=== PATIENT | female | born 1940 | race Caucasian/White ===

== ENCOUNTER 2016-08-30 10:20 | Emergency (ER) | payer OTHER ==
[~2016-08-30] VITALS: Ht 165.1 cm; Wt 63.6 kg
[~2016-08-30 10:20] MED LIST: ATOR40TA PO; AZIT250T43 PO; CALCTAB11 PO; DICL1GEL TOP; HYDR-3580 PO; LACT PO; LORTA5 PO; MAGN250T5 PO; MUCI600T PO; OMEP20CA5 PO; Z.0.COMMODE-3:1; Z.0.WALKERFRONT; ZOFR4TAB3 SL
[2016-08-30 10:24] VITALS: BP 89/58; PULSE 102; RESP 20; TEMP 98; O2SAT 97
--- NOTE | 2016-08-30 10:57 | PD ---
HPI Chief Complaint: Pain: Acute or Chronic Time Seen by Provider: 10:36 Travel History International Travel<30 days: No Contact w/Intl Traveler<30days: No Traveled to known affect area: No History of Present Illness HPI The patient was seen and examined in the presence of the nurse. Patient complains of pain in her right buttock that radiates down the back of her right leg to the level of the ankle. Has been diagnosed with sciatica. Duration is 2 -3 weeks. She just had a lumbar spine MRI which revealed some degenerative change but nothing surgical. She saw her orthopedist for this and was referred to physical therapy. Physical therapist thought that she should come to the emergency room. She complained of feeling dizzy and lightheaded. Severity is moderate. Pain is worse with movement or trying to walk. No alleviating factors. PFSH Past Medical History Arthritis: Yes (hands) Asthma: No Heart Rhythm Problems: No Cancer: Yes (rectal cancer) Cardiovascular Problems: No High Cholesterol: Yes Chemotherapy: Yes (R/T RECTAL CANCER ) Chest Pain: No Congestive Heart Failure: No COPD: No Cerebrovascular Accident: No Diabetes: No Endocrine: No Gastrointestinal Disorders: Yes (ESOPHAGEAL STRICTURE AND DILATION) GERD: Yes Glaucoma: No Genitourinary: No Hepatitis: No Hiatal Hernia: No Hypertension: No Immune Disorder: No Implanted Vascular Access Dvce: Yes Kidney Stones: Yes Musculoskeletal: Yes Neurologic: No Psychiatric: No Reproductive: No Respiratory: No Migraines: No Radiation Therapy: Yes (just finished radiation last week) Renal Failure: No Seizures: No Sickle Cell Disease: No Sleep Apnea: No Thyroid Disease: No Ulcer: No ?: Not Past Surgical History Abdominal Surgery: Yes (hysterectomy) AICD: No Arteriovenous Shunt: No Cardiac Surgery: No Ear Surgery: No Endocrine Surgery: No Eye Surgery: No Genitourinary Surgery: No Gynecologic Surgery: Yes (hysterectomy) Insulin Pump: No Oral Surgery: No Pacemaker: No Thoracic Surgery: No Other Surgery: Yes (PORT) Social History Alcohol Use: No Tobacco Use: No Substance Use: No Allergies-Medications (Allergen,Severity, Reaction): Coded Allergies: No Known Allergies (Verified , 08/30/16) Reported Meds & Prescriptions Reported Meds & Active Scripts Active Reported Atorvastatin (Atorvastatin Calcium) 40 Mg Tab 40 Mg PO HS Omeprazole 20 Mg Tab 20 Mg PO DAILY Gabapentin 300 Mg Cap 300 Mg PO BID Review of Systems General / Constitutional: No: Fever Eyes: No: Visual changes HENT: Positive: Lightheadedness, No: Headaches Cardiovascular: No: Chest Pain or Discomfort Respiratory: No: Shortness of Breath Gastrointestinal: No: Abdominal Pain Genitourinary: No: Dysuria Musculoskeletal: Positive: Pain Skin: No Rash Neurologic: No: Weakness Psychiatric: No: Depression Endocrine: No: Polydipsia Hematologic/Lymphatic: No: Easy Bruising Physical Exam Narrative GENERAL: Well-nourished, well-developed patient with right sciatic pain. SKIN: Warm and dry. HEAD: Atraumatic. Normocephalic. EYES: Pupils equal and round. No scleral icterus. No injection or drainage. ENT: No nasal bleeding or discharge. Mucous membranes pink and moist. NECK: Trachea midline. No JVD. CARDIOVASCULAR: Regular rate and rhythm. No murmur appreciated. RESPIRATORY: No accessory muscle use. Clear to auscultation. Breath sounds equal bilaterally. GASTROINTESTINAL: Abdomen soft, non-tender, nondistended. Hepatic and splenic margins not palpable. MUSCULOSKELETAL: No obvious deformities. No clubbing. No cyanosis. No edema. No midline tenderness of the back. Tender in the right buttock which reproduces her pain complaint. Positive straight leg raise. NEUROLOGICAL: Awake and alert. No obvious cranial nerve deficits. Motor grossly within normal limits. Normal speech. Sensation intact PSYCHIATRIC: Appropriate mood and affect; insight and judgment normal. Data Data Last Documented VS Vital Signs Date Time Temp Pulse Resp B/P Pulse Ox O2 Delivery O2 Flow Rate FiO2 08/30/16 13:45 87 18 158/76 99 Room Air 08/30/16 10:24 98.0 Orders Sodium Chlor 0.9% 1000 Ml Inj (Ns 1000 M (08/30/16 11:00) Ondansetron Inj (Zofran Inj) (08/30/16 11:00) Morphine Inj (Morphine Inj) (08/30/16 11:00) Complete Blood Count With Diff (08/30/16 10:49) Basic Metabolic Panel (Bmp) (08/30/16 10:49) Urinalysis - C+S If Indicated (08/30/16 10:49) Electrocardiogram (08/30/16 ) Information Technology Administrator / Telemetry NORA.Q8H (08/30/16 10:49) Ketorolac Inj (Toradol Inj) (08/30/16 11:00) Labs Laboratory Tests Test 08/30/16 08/30/16 11:25 13:35 White Blood Count 8.5 TH/MM3 Red Blood Count 4.47 MIL/MM3 Hemoglobin 13.1 GM/DL Hematocrit 39.0 % Mean Corpuscular Volume 87.2 FL Mean Corpuscular Hemoglobin 29.4 PG Mean Corpuscular Hemoglobin 33.7 % Concent Red Cell Distribution Width 14.4 % Platelet Count 196 TH/MM3 Mean Platelet Volume 7.2 FL Neutrophils (%) (Auto) 78.5 % Lymphocytes (%) (Auto) 7.8 % Monocytes (%) (Auto) 12.2 % Eosinophils (%) (Auto) 1.1 % Basophils (%) (Auto) 0.4 % Neutrophils # (Auto) 6.6 TH/MM3 Lymphocytes # (Auto) 0.7 TH/MM3 Monocytes # (Auto) 1.0 TH/MM3 Eosinophils # (Auto) 0.1 TH/MM3 Basophils # (Auto) 0.0 TH/MM3 CBC Comment DIFF FINAL Differential Comment Sodium Level 131 MEQ/L Potassium Level 4.0 MEQ/L Chloride Level 96 MEQ/L Carbon Dioxide Level 25.1 MEQ/L Anion Gap 10 MEQ/L Blood Urea Nitrogen 19 MG/DL Creatinine 1.27 MG/DL Estimat Glomerular Filtration 41 ML/MIN Rate Random Glucose 89 MG/DL Calcium Level 8.9 MG/DL Urine Color LIGHT-YELLOW Urine Turbidity CLEAR Urine pH 5.5 Urine Specific [place] 1.005 Urine Protein NEG mg/dL Urine Glucose (UA) NEG mg/dL Urine Ketones NEG mg/dL Urine Occult Blood NEG Urine Nitrite NEG Urine Bilirubin NEG Urine Urobilinogen LESS THAN 2.0 MG/DL Urine Leukocyte Esterase NEG Urine RBC 1 /hpf Urine WBC LESS THAN 1 /hpf Urine Squamous Epithelial 1 /hpf Cells Urine Mucus FEW /lpf Microscopic Urinalysis Comment CULT NOT INDICATED MDM Medical Decision Making Medical Screen Exam Complete: Yes Emergency Medical Condition: Yes Medical Record Reviewed: Yes Differential Diagnosis Sciatica, vasovagal episode, dehydration Narrative Course I have reviewed the patient's electronic medical record. Reviewed her oncologist note detailing her chemoradiation for anal cancer. I reviewed his description of her MRI results and plan for dealing with her sciatica IV placed I gave her 1 L normal saline IV Blood pressure initially was 89 systolic on arrival but soon as she came back to the emergency room it was 117 systolic May have had a vasovagal episode CBC is normal Metabolic profile shows mild hyponatremia with minimal renal sufficiency Urinalysis is clean With the improved blood pressure I gave her dose of morphine and Zofran and Toradol I don't see any neurologic deficit but she is having difficulty getting around due to pain Has run out of her Percocets Patient's blood pressure has been normal ever since she is been back in the ER. For 4-5 hours it's been running normal She feels improved after morphine injection and Toradol injection She ambulated to the restroom and back without undue difficulty We had a discussion about her pain medications. I wrote her both tramadol and Tylenol 3 with codeine. Warned about potential sedation and constipation. She has already seen orthopedic and has initiated physical therapy for this problem Diagnosis Primary Impression: Right-sided low back pain with sciatica Qualified Code: M54.41 - Acute right-sided low back pain with right-sided sciatica Additional Impression: Hypotensive episode Additional Instructions: The patient was advised to follow up with their physician and return if they worsen. The patient was warned about potential sedation for the medications they will receive on prescription. Use walker Med/Other Pt SpecificInfo: Prescription(s) given Scripts Tramadol 50 Mg Tab50 Mg PO Q6H PRN (PAIN) #25 TAB Ref 0 Prov:Shahzad Ramos MD 08/30/16 Acetaminophen-Codeine (Tylenol-Codeine #3)300-30 mg Tab1 Tab PO Q4H PRN (PAIN) # 25 TAB Ref 0 Prov:Shahzad Ramos MD 08/30/16 Disposition: 01 DISCHARGE HOME Condition: Stable Shahzad Ramos MD Aug 30, 2016 10:57
[2016-08-30] MEDS ORDERED: SODIUM CHLOR 0.9% 1000 ML INJ 1,000 ML IV ONE (11:00)
[2016-08-30] MEDS ORDERED: ONDANSETRON HCL 4 MG/2 ML VIAL IV ONE (11:00)
[2016-08-30] MEDS ORDERED: MORPHINE SULFATE 4 MG/ML INJ IV PUSH ONE (11:00)
[2016-08-30] MEDS ORDERED: KETOROLAC TROMETHAMINE 30 MG/ML (IVP) VIAL IVP ONE (11:00)
[2016-08-30] MEDS ORDERED: ATOR40TA16 PO (11:44)
[2016-08-30] MEDS ORDERED: GABA300C5 PO (11:44)
[2016-08-30] MEDS ORDERED: OMEP20TA PO (11:44)
[2016-08-30 11:53] LABS: AUTOMATED NEUTROPHIL # 6.6 TH/MM3 (1.8-7.7); BASOPHIL % 0.4 % (0.0-2.0); EOSINOPHIL # 0.1 TH/MM3 (0-0.4); EOSINOPHIL % 1.1 % (0.0-4.0); HEMO FLAGS DIFF FINAL; LYMPH % 7.8 % (9.0-44.0); LYMPHOCYTE # 0.7 TH/MM3 (1.0-4.8); MEAN CELL VOLUME 87.2 FL (80.0-100.0); MEAN CORPUSCULAR HEMOGLOBIN 29.4 PG (27.0-34.0); MEAN CORPUSCULAR HGB CONC 33.7 % (32.0-36.0); MONO % 12.2 % (0.0-8.0); NEUT % 78.5 % (16.0-70.0); PLATELET COUNT 196 TH/MM3 (150-450); RED BLOOD COUNT 4.47 MIL/MM3 (4.00-5.30); RED CELL DISTRIBUTION WIDTH 14.4 % (11.6-17.2); WHITE BLOOD COUNT 8.5 TH/MM3 (4.0-11.0)
[2016-08-30 12:09] LABS: BICARBONATE 25.1 MEQ/L (21.0-32.0)
[2016-08-30 13:45] VITALS: BP 158/76; PULSE 87; RESP 18; O2SAT 99
[2016-08-30 14:12] LABS: BLOOD, URINE NEG (NEG); COMMENT (UR) CULT NOT INDICATED; CULTURE IF INDICATED CULT NOT INDICATED; GLUCOSE,URINE NEG (NEG); KETONE, URINE NEG (NEG); MUCUS URINE FEW /lpf (OCC); NITRITE,URINE NEG (NEG); PH, URINE 5.5 (5.0-8.5); SQUAMOUS EPITHELIAL CELL URINE 1 /hpf (0-5); URINE COLOR LIGHT-YELLOW (YELLW/STRAW)
[2016-08-30] MEDS ORDERED: TRAM50TA PO (15:21)
[2016-08-30] MEDS ORDERED: TYLETAB34 PO (15:21)
--- NOTE | 2016-08-30 21:38 | EKG ---
Date Performed: 08/30/2016 Time Performed: 11:33:11 PTAGE: 75 years EKG: Sinus rhythm NORMAL ECG PREVIOUS TRACING : 04/07/2016 09.52 Compared to prior tracing no significant change DOCTOR: Scar Ovalle Interpretating Date/Time 08/30/2016 21:37:32
[2016-11-27] MEDS ORDERED: HYDR-3288 PO (08:05)
[2016-11-27] MEDS ORDERED: DEXA4TAB PO (08:05)
[2016-11-27] MEDS ORDERED: FENT25T T-DERMAL (08:05)
[2016-11-27] MEDS ORDERED: MULTTAB67 PO (08:05)
[2016-11-27] MEDS ORDERED: GABA600T PO (08:05)
[2016-11-27] MEDS ORDERED: VITA400C5 PO (08:05)
[2016-11-27] MEDS ORDERED: PENT400T PO (08:05)
[2016-11-27] MEDS ORDERED: XARE15TA PO (08:05)
[2016-11-27] MEDS ORDERED: TRAM50TA PO (08:05)
== END 2016-08-30 16:08 | disposition home or self-care (01) ==
LOC: NEPA 10:20
DX: C20 Malignant neoplasm of rectum (principal); M54.41 Lumbago with sciatica, right side; I95.9 Hypotension, unspecified; R42 Dizziness and giddiness
CPT/HCPCS: 80048; 81001; 85025; 93005; 96361; 96374; 96375; 99283; J1885; J2270; J2405; J7030

== ENCOUNTER 2016-12-06 17:15 | Inpatient (IN) | payer OTHER, MEDICARE ==
[~2016-12-06] VITALS: Ht 160 cm; Wt 65.8 kg
[~2016-12-06 17:15] MED LIST changes: -ATOR40TA PO; +ATOR40TA16 PO; -AZIT250T43 PO; -CALCTAB11 PO; +DEXA4TAB PO; -DICL1GEL TOP; +FENT25T T-DERMAL; +GABA600T PO; +HYDR-3288 PO; -HYDR-3580 PO; -LACT PO; -LORTA5 PO; -MAGN250T5 PO; -MUCI600T PO; +MULTTAB67 PO; -OMEP20CA5 PO; +OMEP20TA PO; +PENT400T PO; +TRAM50TA PO; +VITA400C5 PO; +XARE15TA PO; -Z.0.COMMODE-3:1; -Z.0.WALKERFRONT; -ZOFR4TAB3 SL
[2016-12-06 17:18] VITALS: BP 92/62; PULSE 100; RESP 24; TEMP 97.8; O2SAT 98
--- NOTE | 2016-12-06 17:43 | PD ---
Physical Exam Time Seen by Provider: 17:39 Narrative 76yo c/o fall x2; once two days ago and today. Denies hitting her head or LOC. C/o of weakness. C/o R leg pain and R buttocks pain. C/o pain and soreness all over. Reports sores in her mouth. Patient on Xarelto for DVT in R leg. Hx of radiation and chemo that ended in July. Patient seen in triage. VS reviewed. Awaiting bed placement. Data Data Last Documented VS Vital Signs Date Time Temp Pulse Resp B/P Pulse Ox O2 Delivery O2 Flow Rate FiO2 12/06/16 17:18 97.8 100 24 92/62 98 Room Air MDM Supervised Visit with RADHA: Kaylee Oneil December 06, 2016 17:43
[2016-12-06] MEDS ORDERED: SODIUM CHLOR 0.9% 1000 ML INJ 1,000 ML IV ONE (18:22)
--- NOTE | 2016-12-06 18:29 | PD ---
HPI Chief Complaint: General Weakness Time Seen by Provider: 18:26 Travel History International Travel<30 days: No Contact w/Intl Traveler<30days: No Traveled to known affect area: No History of Present Illness HPI 76 year old female presents to the emergency department for evaluation of generalized weakness, inability to ambulate. Patient lives alone. Her daughter is here at the bedside with her. The patient has history of anal cancer status post radiation and chemotherapy June 2016. She has had worsening right hip pain since then. She is on steroid treatment for this. This is thought to be a complication from the radiation therapy. The patient states for the past week, she has had generalized weakness. She has fallen twice in the past 3 days. She denies hitting her head or losing consciousness. The patient denies any chest pain or shortness of breath. No abdominal pain. No nausea, vomiting, diarrhea. Patient does complain of left hip pain since her fall. She has large ecchymosis to the left hip. Patient states she has been unable to get out of bed. She has not been eating or drinking and has not have to use the bathroom. She has a stage II decubitus ulcer to the sacral area. Patient denies any fevers. She is unable to ambulate, even at bedside. Patient is on Xarelto for history of DVT. PFSH Past Medical History Hx Anticoagulant Therapy: Yes (XARELTO) Arthritis: Yes (hands) Asthma: No Heart Rhythm Problems: No Cancer: Yes (rectal cancer) Cardiovascular Problems: Yes High Cholesterol: Yes Chemotherapy: Yes Chest Pain: No Congestive Heart Failure: No COPD: No Cerebrovascular Accident: Yes Diabetes: Yes Endocrine: No Gastrointestinal Disorders: Yes (ESOPHAGEAL STRICTURE AND DILATION) GERD: Yes Glaucoma: No Genitourinary: No Hepatitis: No Hiatal Hernia: No Hypertension: No Immune Disorder: No Implanted Vascular Access Dvce: Yes Kidney Stones: Yes Musculoskeletal: Yes Neurologic: No Psychiatric: No Reproductive: No Respiratory: No Migraines: No Radiation Therapy: Yes (just finished radiation last week) Renal Failure: No Seizures: No Sickle Cell Disease: No Sleep Apnea: No Thyroid Disease: No Ulcer: No Past Surgical History Abdominal Surgery: Yes (hysterectomy) AICD: No Arteriovenous Shunt: No Cardiac Surgery: No Ear Surgery: No Endocrine Surgery: No Eye Surgery: No Genitourinary Surgery: No Gynecologic Surgery: Yes (hysterectomy) Hysterectomy: Yes Insulin Pump: No Oral Surgery: No Pacemaker: No Thoracic Surgery: No Other Surgery: Yes (PORT) Social History Alcohol Use: No Tobacco Use: No Substance Use: No Allergies-Medications (Allergen,Severity, Reaction): Coded Allergies: No Known Allergies (Verified , 12/06/16) Reported Meds & Prescriptions Reported Meds & Active Scripts Active Tramadol (Tramadol HCl) 50 Mg Tab 50 Mg PO Q8HR PRN Reported Metronidazole 500 Mg Tab 500 Mg PO TID Multiple Vitamin 1 Tab 1 Tab PO DAILY [place] (Hydrocodone-Acetaminophen) 7.5-325 mg Tab 1 Tab PO Q6H PRN Duragesic Patch 72 HR (Fentanyl) 25 Mcg/Hr Patch 25 Mcg T-DERMAL Q72H Remove old patch when new one placed. E-400 (Vitamin E) 400 Unit Cap 1 Tab PO BID Pentoxifylline ER (Pentoxifylline) 400 Mg Tab 400 Mg PO TID Dexamethasone 4 Mg Tab 4 Mg PO Q6HR Gabapentin 600 Mg Tab 1,200 Mg PO TID Xarelto (Rivaroxaban) 15 Mg Tab 15 Mg PO DAILY Atorvastatin (Atorvastatin Calcium) 40 Mg Tab 40 Mg PO HS Omeprazole 20 Mg Tab 20 Mg PO BID Review of Systems Except as stated in HPI: all other systems reviewed are Neg Physical Exam Narrative GENERAL: Well-nourished, well-developed elderly female patient. SKIN: Focused skin assessment warm/dry. Patient has ecchymosis to left lateral hip. She has skin abrasion to the right anterior knee. Patient has stage II decubitus ulcer to the sacrum. HEAD: Normocephalic. Atraumatic. EYES: No scleral icterus. No injection or drainage. NECK: Supple, trachea midline. No JVD or lymphadenopathy. CARDIOVASCULAR: Regular rate and rhythm without murmurs, gallops, or rubs. Bilateral radial and pedal pulses are 2+. RESPIRATORY: Breath sounds equal bilaterally. No accessory muscle use. Lungs sounds are clear to auscultation. GASTROINTESTINAL: Abdomen soft, non-tender, nondistended. No abdominal pain to palpation. MUSCULOSKELETAL: No cyanosis, or edema. BACK: Nontender without obvious deformity. No CVA tenderness. Data Data Last Documented VS Vital Signs Date Time Temp Pulse Resp B/P Pulse Ox O2 Delivery O2 Flow Rate FiO2 12/06/16 18:31 98.3 96 17 130/81 100 Room Air Orders Electrocardiogram (12/06/16 18:22) Complete Blood Count With Diff (12/06/16 18:22) Comprehensive Metabolic Panel (12/06/16 18:22) Magnesium (Mg) (12/06/16 18:22) Ckmb (Isoenzyme) Profile (12/06/16 18:22) Troponin I (12/06/16 18:22) Act Partial Throm Time (Ptt) (12/06/16 18:22) Prothrombin Time / Inr (Pt) (12/06/16 18:22) Urinalysis - C+S If Indicated (12/06/16 18:22) Chest, Single Ap (12/06/16 18:22) Ct Brain W/O Iv Contrast(Rout) (12/06/16 18:22) Ct Cerv Spine W/O Contrast (12/06/16 18:22) Ecg Monitoring (12/06/16 18:22) Iv Access Insert/Monitor (12/06/16 18:22) Oximetry (12/06/16 18:22) Sodium Chloride 0.9% Flush (Ns Flush) (12/06/16 18:30) Sodium Chlor 0.9% 1000 Ml Inj (Ns 1000 M (12/06/16 18:22) Knee, Complete (4vws) (12/06/16 ) Hip, Uni(Ap&Lat) W Ap Pelvis (12/06/16 ) Cath For Specimen (12/06/16 18:24) Tetanus/Diphtheria Tox Adult (Tetanus/Di (12/06/16 18:30) CKMB (12/06/16 18:55) CKMB% (12/06/16 18:55) Blood Culture (12/06/16 20:26) Lactic Acid Sepsis Protocol (12/06/16 20:26) Admit Order (Ed Use Only) (12/06/16 20:36) Vital Signs (Adult) Q4H (12/06/16 20:36) Activity Oob With Assistance (12/06/16 20:36) Bridge Operator Slip / Telemetry .CONTINUOUS (12/06/16 20:36) Diet Heart Healthy (12/07/16 Breakfast) Sodium Chloride 0.9% Flush (Ns Flush) (12/06/16 20:45) Sodium Chloride 0.9% Flush (Ns Flush) (12/06/16 21:00) Basic Metabolic Panel (Bmp) (12/07/16 06:00) Complete Blood Count With Diff (12/07/16 06:00) Creatine Kinase (Cpk) (12/07/16 01:00) Creatine Kinase (Cpk) (12/07/16 07:00) Troponin I (12/07/16 01:00) Troponin I (12/07/16 07:00) Electrocardiogram (12/07/16 01:00) Electrocardiogram (12/07/16 07:00) Pt Request For Service (12/06/16 20:36) Case Management Consult (12/06/16 20:36) Naloxone Inj (Narcan Inj) (12/06/16 20:45) Complete Blood Count With Diff (12/06/16 20:36) Labs Laboratory Tests Test 12/06/16 18:55 White Blood Count 6.3 TH/MM3 Red Blood Count 3.86 MIL/MM3 Hemoglobin 11.6 GM/DL Hematocrit 34.1 % Mean Corpuscular Volume 88.3 FL Mean Corpuscular Hemoglobin 30.1 PG Mean Corpuscular Hemoglobin 34.1 % Concent Red Cell Distribution Width 16.3 % Platelet Count 119 TH/MM3 Mean Platelet Volume 6.9 FL Neutrophils (%) (Auto) 92.2 % Lymphocytes (%) (Auto) 5.3 % Monocytes (%) (Auto) 2.4 % Eosinophils (%) (Auto) 0.0 % Basophils (%) (Auto) 0.1 % Neutrophils # (Auto) 5.8 TH/MM3 Lymphocytes # (Auto) 0.3 TH/MM3 Monocytes # (Auto) 0.1 TH/MM3 Eosinophils # (Auto) 0.0 TH/MM3 Basophils # (Auto) 0.0 TH/MM3 CBC Comment AUTO DIFF Differential Total Cells 100 Counted Neutrophils % (Manual) 83 % Band Neutrophils % 9 % Lymphocytes % 4 % Monocytes % 1 % Neutrophils # (Manual) 6.0 TH/MM3 Metamyelocytes 3 % Nucleated Red Blood Cells 2 /100 WBC Differential Comment FINAL DIFF MANUAL Platelet Estimate LOW Platelet Morphology Comment NORMAL Ovalocytes 1+ Prothrombin Time 13.8 SEC Prothromb Time International 1.2 RATIO Ratio Activated Partial 32.3 SEC Thromboplast Time Urine Color LIGHT-RED Urine Turbidity CLEAR Urine pH 6.0 Urine Specific [place] 1.015 Urine Protein TRACE mg/dL Urine Glucose (UA) NEG mg/dL Urine Ketones NEG mg/dL Urine Occult Blood NEG Urine Nitrite NEG Urine Bilirubin NEG Urine Urobilinogen LESS THAN 2.0 MG/DL Urine Leukocyte Esterase TRACE Urine RBC 2 /hpf Urine WBC 2 /hpf Urine Mucus FEW /lpf Microscopic Urinalysis Comment CATH-CULT NOT IND Sodium Level 135 MEQ/L Potassium Level 3.6 MEQ/L Chloride Level 105 MEQ/L Carbon Dioxide Level 21.5 MEQ/L Anion Gap 9 MEQ/L Blood Urea Nitrogen 20 MG/DL Creatinine 0.83 MG/DL Estimat Glomerular Filtration 67 ML/MIN Rate Random Glucose 118 MG/DL Calcium Level 8.1 MG/DL Magnesium Level 1.9 MG/DL Total Bilirubin 0.6 MG/DL Aspartate Amino Transf 43 U/L (AST/SGOT) Alanine Aminotransferase 51 U/L (ALT/SGPT) Alkaline Phosphatase 59 U/L Total Creatine Kinase 104 U/L Creatine Kinase MB 2.1 NG/ML Troponin I 0.06 NG/ML Total Protein 5.1 GM/DL Albumin 2.2 GM/DL [facility] Medical Decision Making Medical Screen Exam Complete: Yes Emergency Medical Condition: Yes Medical Record Reviewed: Yes Interpretation(s) CT brain CONCLUSION: Normal examination. CT cervical spine CONCLUSION: 1. No fracture or dislocation. 2. Multilevel degenerative changes with patent central canal. X-ray left hip with pelvis-CONCLUSION: No acute disease. X-ray left knee CONCLUSION: Knee arthroplasty. No acute abnormality. X-ray chest - CONCLUSION: No acute disease. Differential Diagnosis Electrolyte abnormality versus dehydration versus ACS versus UTI versus fracture Narrative Course 76-year-old female presents to the emergency department for inability to ambulate, worsening pain. She has fallen twice in the past 3 days. EKG, CBC, CMP, CK, troponin, magnesium, PTT, PT/INR, UA are ordered and pending. Chest x- ray, x-ray of the left hip with pelvis, x-ray of the right knee are ordered and pending. CT of the brain and cervical spine are ordered and pending. Patient is given normal saline 1 L IV bolus. Tetanus immunization is updated. EKG shows SR, HR 95, no acute ST changes. CBC shows platelets 119, normal WBC of 6.3, neutrophils of 92.2. CMP shows no acute abnormality. CK is 104. Troponin is 0.06. Magnesium is 1.9. PT is 13.8, INR 1.2, PTT 32.3. UA is negative for acute infection. Chest x-ray shows no acute disease. X-ray left hip with pelvis shows no acute disease. X-ray of the right knee shows no acute abnormality. CT of the brain is normal. Ct of the cervical spine shows no fracture or dislocation. Patient will be admitted for further evaluation. She is unable to ambulate and lives at home. The patient agrees to this. Dr. Ortiz accepted admission. Diagnosis Primary Impression: Generalized weakness Additional Impressions: Elevated troponin Inability to ambulate due to multiple joints Admitting Information Admitting Physician Requests: Admit Lina Acosta December 06, 2016 18:29
[2016-12-06] MEDS ORDERED: TETANUS/DIPHTHERIA TOXOID ADULT 0.5 ML VIAL IM ONE (18:30)
[2016-12-06] MEDS ORDERED: SODIUM CHLORIDE 0.9% FLUSH 10 ML FLUSH IVF PRN (18:30)
[2016-12-06 18:31] VITALS: BP 130/81; PULSE 96; RESP 17; TEMP 98.3; O2SAT 100
[2016-12-06] MEDS ORDERED: METR500T10 PO (18:43)
[2016-12-06 19:14] LABS: BLOOD, URINE NEG (NEG); GLUCOSE,URINE NEG (NEG); KETONE, URINE NEG (NEG); MUCUS URINE FEW /lpf (OCC); NITRITE,URINE NEG (NEG); URINE COLOR LIGHT-RED (YELLW/STRAW)
[2016-12-06 19:15] LABS: AUTOMATED NEUTROPHIL # 5.8 TH/MM3 (1.8-7.7); BASOPHIL % 0.1 % (0.0-2.0); COMMENT (UR) CATH-CULT NOT IND; CULTURE IF INDICATED CATH CULTURE NOT IND; HEMATOCRIT 34.1 % (35.0-46.0); LYMPH % 5.3 % (9.0-44.0); LYMPHOCYTE # 0.3 TH/MM3 (1.0-4.8); MEAN CELL VOLUME 88.3 FL (80.0-100.0); MEAN CORPUSCULAR HEMOGLOBIN 30.1 PG (27.0-34.0); MEAN CORPUSCULAR HGB CONC 34.1 % (32.0-36.0); MONO % 2.4 % (0.0-8.0); NEUT % 92.2 % (16.0-70.0); PLATELET COUNT 119 TH/MM3 (150-450); RED BLOOD COUNT 3.86 MIL/MM3 (4.00-5.30); RED CELL DISTRIBUTION WIDTH 16.3 % (11.6-17.2); WHITE BLOOD COUNT 6.3 TH/MM3 (4.0-11.0)
[2016-12-06 19:16] LABS: HEMO FLAGS AUTO DIFF
[2016-12-06 19:28] LABS: APTT (PATIENT) 32.3 SEC (24.3-30.1); INTERNATIONAL NORMALIZED RATIO 1.2 RATIO; PROTHROMBIN TIME - PATIENT 13.8 SEC (9.8-11.6)
[2016-12-06 19:41] LABS: ANION GAP 9 MEQ/L (5-15); AST (GOT) 43 U/L (15-37); BICARBONATE 21.5 MEQ/L (21.0-32.0); BLOOD UREA NITROGEN 20 MG/DL (7-18); CHLORIDE 105 MEQ/L (98-107); GLOMERULAR FILTRATION RATE 67 ML/MIN (>89); MAGNESIUM 1.9 MG/DL (1.5-2.5); POTASSIUM 3.6 MEQ/L (3.5-5.1); SODIUM (NA) 135 MEQ/L (136-145)
--- NOTE | 2016-12-06 19:42 | RADRPT ---
EXAM DATE/TIME: 12/06/2016 19:06 [facility] COMPARISON: No previous studies available for comparison. INDICATIONS : Trauma. Fall. RADIATION DOSE: 52.23 CTDIvol (mGy) MEDICAL HISTORY : Cardiovascular disease. Diabetes mellitus type 2. Deep venous thrombosis.Rectal ca SURGICAL HISTORY : Hysterectomy. ENCOUNTER: Initial ACUITY: 1 day PAIN SCALE: 7/10 LOCATION: cranial TECHNIQUE: Multiple contiguous axial images were obtained of the head. Using automated exposure control and adj ustment of the mA and/or kV according to patient size, radiation dose was kept as low as reasonably a chievable to obtain optimal diagnostic quality images. FINDINGS: CEREBRUM: The ventricles are normal for age. No evidence of midline shift, mass lesion, hemorrhage or acute in farction. No extra-axial fluid collections are seen. POSTERIOR FOSSA: The cerebellum and brainstem are intact. The 4th ventricle is midline. The cerebellopontine angle i s unremarkable. EXTRACRANIAL: The visualized portion of the orbits is intact. SKULL: The calvaria is intact. No evidence of skull fracture. CONCLUSION: Normal examination. Ambrocio Le Jr., MD on December 06, 2016 at 19:38 Board Certified Radiologist. This report was verified electronically.
[2016-12-06 19:44] LABS: BANDS 9 % (0-6); CORRECTED NUCLEATED RBC 2 /100 WBC (0-0); METAMYELOCYTES 3 % (0-1); OVALOCYTES 1+ (NORMAL); POLYS (SEG NEUTROPHILS) 83 % (16-70); WBC DIFF SAMPLE 100
[2016-12-06 19:45] LABS: PLATELET ESTIMATE SMEAR LOW (NORMAL); PLATELET MORPHOLOGY NORMAL (NORMAL); SCAN/DIFF FINAL DIFF MANUAL
--- NOTE | 2016-12-06 19:45 | RADRPT ---
EXAM DATE/TIME: 12/06/2016 19:06 [facility] COMPARISON: No previous studies available for comparison. INDICATIONS : Trauma. Fall. RADIATION DOSE: 42.57 CTDIvol (mGy) MEDICAL HISTORY : Cardiovascular disease. Diabetes mellitus type 2. Deep venous thrombosis.Rectal ca SURGICAL HISTORY : Hysterectomy. ENCOUNTER: Initial ACUITY: 1 day PAIN SCALE: 7/10 LOCATION: neck TECHNIQUE: Volumetric scanning of the cervical spine was performed. Multiplanar reconstructions in the sagittal, coronal and oblique axial planes were performed. Using automated exposure control and adjustment o f the mA and/or kV according to patient size, radiation dose was kept as low as reasonably achievable to obtain optimal diagnostic quality images. FINDINGS: VERTEBRAE: Normal vertebral body height. ALIGNMENT: A mild grade 1 anterolisthesis of C5 on C6. C2-C3: The bony spinal canal is normal in size. No evidence of disc bulge or herniation. Prominent bony unc overtebral hypertrophy generates mild left neural foraminal narrowing. The right is patent. C3-C4: The bony spinal canal is normal in size. No evidence of disc bulge or herniation. Prominent bony unc overtebral hypertrophy generates mild left neural foraminal narrowing. The right is patent. C4-C5: The bony spinal canal is normal in size. No evidence of disc bulge or herniation. Prominent bony unc overtebral hypertrophy generates mild left neural foraminal narrowing. The right is patent. C5-C6: The bony spinal canal is normal in size. No evidence of disc bulge or herniation. Prominent bony unc overtebral hypertrophy generates bilateral neural foraminal narrowing.. C6-C7: There is disc space narrowing with prominent anterior osteophyte. No disc bulge or protrusion posteri benny. Bony uncovertebral hypertrophy with patent neural foramina bilaterally. C7-T1: The bony spinal canal is normal in size. No evidence of disc bulge or herniation. The neural forami na are bilaterally patent. CONCLUSION: 1. No fracture or dislocation. 2. Multilevel degenerative changes with patent central canal. Ambrocio Le Jr., MD on December 06, 2016 at 19:40 Board Certified Radiologist. This report was verified electronically.
[2016-12-06 19:46] LABS: ALKALINE PHOSPHATASE 59 U/L (45-117); ALT (GPT) 51 U/L (10-53); CREATINE KINASE 104 U/L (26-192); TOTAL BILIRUBIN ADULT 0.6 MG/DL (0.2-1.0)
--- NOTE | 2016-12-06 19:51 | RADRPT ---
EXAM DATE/TIME: 12/06/2016 19:25 [facility] COMPARISON: CHEST SINGLE AP, April 10, 2016, 9:11. INDICATIONS : Patient complains of weakness and shortness of breath. MEDICAL HISTORY : Carcinoma, rectal. SURGICAL HISTORY : Infusaport. ENCOUNTER: Initial ACUITY: 1 day PAIN SCORE: 0/10 LOCATION: chest FINDINGS: 2 portable frontal views of the chest demonstrate the lungs to be symmetrically aerated without evide nce of mass, infiltrate or effusion. The cardiomediastinal contours are unremarkable. Osseous struc tures are intact. A power port is seen on the right. CONCLUSION: No acute disease. Ambrocio Le Jr., MD on December 06, 2016 at 19:48 Board Certified Radiologist. This report was verified electronically.
--- NOTE | 2016-12-06 19:53 | RADRPT ---
EXAM DATE/TIME: 12/06/2016 19:27 [facility] COMPARISON: No previous studies available for comparison. INDICATIONS : Status post fall. Complains of left hip pain. MEDICAL HISTORY : None. SURGICAL HISTORY : Total left hip arthroplasty. ENCOUNTER: Initial ACUITY: 1 day PAIN SCORE: 8/10 LOCATION: Left Hip FINDINGS: 3 views of the pelvis and left hip show a total hip prosthesis. This is in good position. No fracture or dislocation. Moderate osteoarthritis of the right hip. Venous calcification overlies the left pel vis. A degenerative lumbar spine partially seen. Soft tissues are unremarkable. CONCLUSION: No acute disease. Ambrocio Le Jr., MD on December 06, 2016 at 19:51 Board Certified Radiologist. This report was verified electronically.
--- NOTE | 2016-12-06 19:54 | RADRPT ---
EXAM DATE/TIME: 12/06/2016 19:28 [facility] COMPARISON: No previous studies available for comparison. INDICATIONS : Status post fall. Complains of right knee pain. MEDICAL HISTORY : None. SURGICAL HISTORY : Total right knee arthroplasty. ENCOUNTER: Initial ACUITY: 1 day PAIN SCORE: 8/10 LOCATION: Right Knee FINDINGS: 4 views of the knee show a total knee prosthesis in good position. No fracture or dislocation is obse rved. No soft tissue swelling is noted. No effusion. CONCLUSION: Knee arthroplasty. No acute abnormality. Ambrocio Le Jr., MD on December 06, 2016 at 19:52 Board Certified Radiologist. This report was verified electronically.
[2016-12-06 19:58] LABS: CKMB 2.1 NG/ML (0.5-3.6)
[2016-12-06] MEDS ORDERED: SODIUM CHLORIDE 0.9% FLUSH 10 ML FLUSH IV FLUSH PRN (20:45)
[2016-12-06] MEDS ORDERED: NALOXONE HCL 0.4 MG/ML AMP IV PRN (20:45)
[2016-12-06] MEDS: MORPHINE SULFATE 4 MG/ML INJ IV PUSH PRN (21:38)
[2016-12-06] MEDS: SODIUM CHLORIDE 0.9% FLUSH 10 ML FLUSH IV FLUSH SCH (21:38)
[2016-12-06 21:45] LABS: AUTOMATED NEUTROPHIL # 4.9 TH/MM3 (1.8-7.7); BASOPHIL % 0.2 % (0.0-2.0); HEMATOCRIT 30.3 % (35.0-46.0); LYMPH % 5.7 % (9.0-44.0); LYMPHOCYTE # 0.3 TH/MM3 (1.0-4.8); MEAN CELL VOLUME 87.4 FL (80.0-100.0); MEAN CORPUSCULAR HEMOGLOBIN 30.2 PG (27.0-34.0); MEAN CORPUSCULAR HGB CONC 34.6 % (32.0-36.0); MONO % 2.1 % (0.0-8.0); PLATELET COUNT 100 TH/MM3 (150-450); RED BLOOD COUNT 3.47 MIL/MM3 (4.00-5.30); RED CELL DISTRIBUTION WIDTH 16.2 % (11.6-17.2); WHITE BLOOD COUNT 5.4 TH/MM3 (4.0-11.0)
[2016-12-06 21:50] LABS: HEMO FLAGS AUTO DIFF
[2016-12-06 21:51] VITALS: BP 114/64; PULSE 72; RESP 16; O2SAT 99
[2016-12-06 22:17] LABS: BANDS 6 % (0-6); CORRECTED NUCLEATED RBC 1 /100 WBC (0-0); METAMYELOCYTES 3 % (0-1); MYELOCYTES 1 % (0-0); NEUTROPHIL # MANUAL DIFF 5.2 TH/MM3 (1.8-7.7); POLYS (SEG NEUTROPHILS) 87 % (16-70); WBC DIFF SAMPLE 100
[2016-12-06 22:18] VITALS: BP 117/75; PULSE 77; RESP 18; TEMP 98.5; O2SAT 97
[2016-12-06 22:18] LABS: OVALOCYTES 1+ (NORMAL); PLATELET ESTIMATE SMEAR LOW (NORMAL); PLATELET MORPHOLOGY NORMAL (NORMAL); SCAN/DIFF FINAL DIFF MANUAL
[2016-12-07] VITALS (8 sets, daily range): BP systolic 93–117; BP diastolic 54–66; PULSE 66–98; RESP 16–21; TEMP 97.7–98.8; O2SAT 97–99
[2016-12-07 02:10] LABS: AUTOMATED NEUTROPHIL # 4.4 TH/MM3 (1.8-7.7); BASOPHIL % 0.1 % (0.0-2.0); HEMATOCRIT 30.7 % (35.0-46.0); LYMPHOCYTE # 0.3 TH/MM3 (1.0-4.8); MEAN CELL VOLUME 87.4 FL (80.0-100.0); MEAN CORPUSCULAR HEMOGLOBIN 30.7 PG (27.0-34.0); MEAN CORPUSCULAR HGB CONC 35.2 % (32.0-36.0); MONO % 2.8 % (0.0-8.0); NEUT % 90.1 % (16.0-70.0); PLATELET COUNT 108 TH/MM3 (150-450); RED BLOOD COUNT 3.51 MIL/MM3 (4.00-5.30); RED CELL DISTRIBUTION WIDTH 16.6 % (11.6-17.2); WHITE BLOOD COUNT 4.9 TH/MM3 (4.0-11.0)
[2016-12-07 02:12] LABS: HEMO FLAGS AUTO DIFF
[2016-12-07 02:37] LABS: BICARBONATE 24.2 MEQ/L (21.0-32.0)
[2016-12-07 02:39] LABS: POTASSIUM 3.6 MEQ/L (3.5-5.1)
[2016-12-07 03:33] LABS: BANDS 9 % (0-6); METAMYELOCYTES 1 % (0-1); NEUTROPHIL # MANUAL DIFF 4.5 TH/MM3 (1.8-7.7); PLATELET ESTIMATE SMEAR LOW (NORMAL); PLATELET MORPHOLOGY NORMAL (NORMAL); POLYS (SEG NEUTROPHILS) 81 % (16-70); SCAN/DIFF FINAL DIFF MANUAL; WBC DIFF SAMPLE 100
--- NOTE | 2016-12-07 07:44 | EKG ---
Date Performed: 12/06/2016 Time Performed: 18:36:22 PTAGE: 76 years EKG: Sinus rhythm WITH SINUS ARRHYTHMIA NORMAL ECG PREVIOUS TRACING : 08/30/2016 11.33 Compared to prior tracing no significant change DOCTOR: Akira Calderon Interpretating Date/Time 12/07/2016 07:43:43
[2016-12-07] MEDS: MORPHINE SULFATE 4 MG/ML INJ IV PUSH PRN (10:15)
[2016-12-07] MEDS: SODIUM CHLORIDE 0.9% FLUSH 10 ML FLUSH IV FLUSH SCH ×2 (10:15→21:05)
--- NOTE | 2016-12-07 11:27 | EKG ---
Date Performed: 12/07/2016 Time Performed: 02:23:34 PTAGE: 76 years EKG: Sinus rhythm PREVIOUS TRACING : 12/06/2016 18.36 Compared to prior tracing no significant change DOCTOR: Akira Calderon Interpretating Date/Time 12/07/2016 11:25:55
--- NOTE | 2016-12-07 11:32 | EKG ---
Date Performed: 12/06/2016 Time Performed: 21:14:32 PTAGE: 76 years EKG: Sinus rhythm NORMAL ECG Compared to prior tracing no significant change DOCTOR: Akira Calderon Interpretating Date/Time 12/07/2016 11:31:28
--- NOTE | 2016-12-07 11:33 | HHI.HP ---
[facility] Primary [facility] Physician Elizabeth Kaba Admission Diagnosis generalized weakness, elevated troponin, inability to ambulate Diagnoses: Chief Complaint: generalized weakness Travel History International Travel<30 Days: No Contact w/Intl Traveler <30 Da: No Traveled to Known Affected Are: No History of Present Illness 76 y/o female with a history of anal cancer (post chemo and radiation 05/25/16) , htn, osteoarthritis, DVT (unknown time), and hyperlipidemia presented to the ED with complaints of increased weakness and pain to right knee and left hip. She is a poor historian when discussing the time line of her chemo, radiation, and names of her Doctors and medications she is taking. She lives alone and states her daughter comes every morning and she knows her medications and history. Tried contacting Daughter at home, no answer. Patient states she has been wheelchair bound for the last year, and the last week she has fallen twice out of her wheel chair when trying to transfer to the bed. She denies hitting her head.The last fall was on Sunday and she landed on her right knee and left hip. There is a noticeable hematoma to her left hip. Denies any chest pain, sob , or dizziness now or prior to her falling. She was most recently seen outpatient by Dr. Pleitez for increased weakness and she recommended outpatient PT for neurofacilitation, transfer, and gait training.and possible use of an AFB or KAFO brace. Patient is follow by Dr. Rojas who thinks this is sciatic related. Patient did fail PT at some point with home health. On 11/24/16 Neurology recommended decrease of gabapentin to decrease sedation. Over the last 6 months she has underwent multiple imaging outpatient. Lumbar spine MRI 11/01/16 showed disc bulges L1-2, L2-3, L3-4 with facet hypertrophy and right foraminal narrowing , L4-5 disc bulge with left foraminal narrowing and disc herniation and osteophytic complex L5-S1 abutting the S1 nerve root and lateral recess with left foraminal narrowing impinging the L5 nerve root. Cervical spine MRI 11/01/16 showed disc bulge C4-5 with left facet hypertrophy with foraminal narrowing C5 nerve root, disc herniation C5-6 and C6-7 compressing ventral thecal sac without neural impingement. Right thigh MRI without contrast 10/06/16 showed worsening tendinosis/myositis upper thigh musculature primarily adductors especially brevis and longus. potential insertional tendinosis/partial tearing of distal adductors at the level of the mid/upper thigh. Radiation induced changes would be in differential. MRI lumbar spine 08/02/16 showed levoscoliosis with degenerative changes L1-2 through L3-4,facet hypertrophy right L2-3 and bilaterally L3-4 and L4-5 and left disc bulge L5-S1 abutting the left L5 nerve root. MRI right hip 08/02/16 showed mild to moderate right hip osteoarthritis. MRI of pelvis 11/06/16 showed intramuscular signal abnormality and edema right gluteal musculature as well and obturator externus, internus and piriformis muscle possible myositis or treatment related changes from rectal carcinoma. EMG testing 11/14/[address] Donald Rojas and the impression was sensory axonal neuropathy, motor neuropathy left side, marked denervation right sciatic nerve territory with no evidence of radiculopathy. Likely direct sciatic nerve injury. Review of Systems Constitutional: COMPLAINS OF: Fatigue, DENIES: Fever, Chills, Dizziness Respiratory: DENIES: Cough, Shortness of breath Cardiovascular: COMPLAINS OF: Lower Extremity Edema, DENIES: Chest pain Gastrointestinal: DENIES: Abdominal pain, Constipation, Diarrhea, Nausea, Vomiting Genitourinary: DENIES: Dysuria, Nocturia Musculoskeletal: COMPLAINS OF: Joint pain, DENIES: Back pain, Neck pain Integumentary: DENIES: Rash Immunologic/allergic: DENIES: Urticaria Neurologic: COMPLAINS OF: Abnormal gait, Localized weakness, Poor Balance, DENIES: Headache Past Family Social History Past Medical History anal cancer (post chemo and radiation 05/25/16) htn hyperlipidemia DVT GERD Chronic pain Past Surgical History Bilateral total knee replacement Left hip replacement Reported Medications Reported Meds & Active Scripts Active Tramadol (Tramadol HCl) 50 Mg Tab 50 Mg PO Q8HR PRN Reported Metronidazole 500 Mg Tab 500 Mg PO TID Multiple Vitamin 1 Tab 1 Tab PO DAILY Virgie (Hydrocodone-Acetaminophen) 7.5-325 mg Tab 1 Tab PO Q6H PRN Duragesic Patch 72 HR (Fentanyl) 25 Mcg/Hr Patch 25 Mcg T-DERMAL Q72H Remove old patch when new one placed. E-400 (Vitamin E) 400 Unit Cap 1 Tab PO BID Pentoxifylline ER (Pentoxifylline) 400 Mg Tab 400 Mg PO TID Dexamethasone 4 Mg Tab 4 Mg PO Q6HR Gabapentin 600 Mg Tab 1,200 Mg PO TID Xarelto (Rivaroxaban) 15 Mg Tab 15 Mg PO DAILY Atorvastatin (Atorvastatin Calcium) 40 Mg Tab 40 Mg PO HS Omeprazole 20 Mg Tab 20 Mg PO BID Allergies: Coded Allergies: No Known Allergies (Verified , 12/06/16) Active Ordered Medications Current Medications Medications (Trade) Dose Ordered Sig/Anette Route Start Time Stop Time Status Last Admin (NS Flush) 2 ml UNSCH PRN IV FLUSH 12/06/16 20:45 (NS Flush) 2 ml BID IV FLUSH 12/06/16 21:00 12/07/16 10:15 (Narcan Inj) 0.4 mg UNSCH PRN IV 12/06/16 20:45 (Morphine Inj) 2 mg Q3H PRN IV PUSH 12/06/16 20:45 12/07/16 10:15 Family History Patient denies any family medical history including cardiac disease and cancer. Social History Denies any tobacco, alcohol or illicit drug use Lives at home alone, daughter comes over every morning to fix her breakfast. Physical Exam Vital Signs Vital Signs Date Time Temp Pulse Resp B/P Pulse Ox O2 Delivery O2 Flow Rate FiO2 12/07/16 08:08 97.7 87 20 115/66 98 12/07/16 05:15 66 12/07/16 04:56 98.8 70 18 108/60 98 12/06/16 22:18 98.5 77 18 117/75 97 12/06/16 21:51 72 16 114/64 99 Room Air 12/06/16 18:31 98.3 96 17 130/81 100 Room Air 12/06/16 17:18 97.8 100 24 92/62 98 Room Air Physical Exam GENERAL: This is a well-nourished, very weak patient. SKIN: Ecchymoses to left hip. Rt knee abrasion open to air. HEAD: Atraumatic. Normocephalic. EYES: Pupils equal round and reactive. Extraocular motions intact. No scleral icterus. No injection or drainage. ENT: Nose without bleeding, purulent drainage or septal hematoma. Airway patent. NECK: Trachea midline. No JVD or lymphadenopathy. Supple, nontender, no meningeal signs. CARDIOVASCULAR: Regular rate and rhythm without murmurs, gallops, or rubs. +2 pedal pitting edema RESPIRATORY: Clear to auscultation. Breath sounds equal bilaterally. No wheezes , rales, or rhonchi. GASTROINTESTINAL: Abdomen soft, non-tender, nondistended. No hepato-splenomegaly , or palpable masses. No guarding. MUSCULOSKELETAL: Extremities without clubbing, cyanosis, or edema. No joint tenderness, effusion, or edema noted. No calf tenderness. Negative Homans sign bilaterally. NEUROLOGICAL: Awake and alert. Motor and sensory grossly within normal limits. RLE weaker, unable to point toes or lift leg. Rt foot drop. Normal speech. Laboratory Laboratory Tests Test 12/06/16 12/06/16 12/06/16 12/07/16 18:55 21:25 21:30 01:47 White Blood Count 6.3 5.4 4.9 Red Blood Count 3.86 3.47 3.51 Hemoglobin 11.6 10.5 10.8 Hematocrit 34.1 30.3 30.7 Mean Corpuscular Volume 88.3 87.4 87.4 Mean Corpuscular Hemoglobin 30.1 30.2 30.7 Mean Corpuscular Hemoglobin 34.1 34.6 35.2 Concent Red Cell Distribution Width 16.3 16.2 16.6 Platelet Count 119 100 108 Mean Platelet Volume 6.9 6.8 6.9 Neutrophils (%) (Auto) 92.2 92.0 90.1 Lymphocytes (%) (Auto) 5.3 5.7 7.0 Monocytes (%) (Auto) 2.4 2.1 2.8 Eosinophils (%) (Auto) 0.0 0.0 0.0 Basophils (%) (Auto) 0.1 0.2 0.1 Neutrophils # (Auto) 5.8 4.9 4.4 Lymphocytes # (Auto) 0.3 0.3 0.3 Monocytes # (Auto) 0.1 0.1 0.1 Eosinophils # (Auto) 0.0 0.0 0.0 Basophils # (Auto) 0.0 0.0 0.0 CBC Comment AUTO DIFF AUTO DIFF AUTO DIFF Differential Total Cells 100 100 100 Counted Neutrophils % (Manual) 83 87 81 Band Neutrophils % 9 6 9 Lymphocytes % 4 2 7 Monocytes % 1 1 2 Neutrophils # (Manual) 6.0 5.2 4.5 Metamyelocytes 3 3 1 Nucleated Red Blood Cells 2 1 Differential Comment FINAL DIFF FINAL DIFF FINAL DIFF MANUAL MANUAL MANUAL Platelet Estimate LOW LOW LOW Platelet Morphology Comment NORMAL NORMAL NORMAL Ovalocytes 1+ 1+ Prothrombin Time 13.8 Prothromb Time International 1.2 Ratio Activated Partial 32.3 Thromboplast Time Urine Color LIGHT-RED Urine Turbidity CLEAR Urine pH 6.0 Urine Specific Hazel 1.015 Urine Protein TRACE Urine Glucose (UA) NEG Urine Ketones NEG Urine Occult Blood NEG Urine Nitrite NEG Urine Bilirubin NEG Urine Urobilinogen LESS THAN 2.0 Urine Leukocyte Esterase TRACE Urine RBC 2 Urine WBC 2 Urine Mucus FEW Microscopic Urinalysis Comment CATH-CULT NOT IND Sodium Level 135 140 Potassium Level 3.6 3.6 Chloride Level 105 106 Carbon Dioxide Level 21.5 24.2 Anion Gap 9 10 Blood Urea Nitrogen 20 16 Creatinine 0.83 0.76 Estimat Glomerular Filtration 67 74 Rate Random Glucose 118 102 Calcium Level 8.1 7.8 Magnesium Level 1.9 Total Bilirubin 0.6 Aspartate Amino Transf 43 (AST/SGOT) Alanine Aminotransferase 51 (ALT/SGPT) Alkaline Phosphatase 59 Total Creatine Kinase 104 95 Creatine Kinase MB 2.1 Troponin I 0.06 0.06 Total Protein 5.1 Albumin 2.2 Lactic Acid Level 1.0 Myelocytes 1 Test 12/07/16 08:19 Total Creatine Kinase 85 Troponin I 0.05 Date/Time Procedure Status Source Growth 12/06/16 21:30 Aerobic Blood Culture Received Blood Peripheral Pending 12/06/16 21:30 Anaerobic Blood Culture Received Blood Peripheral Pending Result Diagram: 12/07/167 12/07/16146 Imaging Last Impressions Head CT 12/06/161821 Signed Impressions: Service Date/Time: Tuesday, December 06, 2016 19:06 - CONCLUSION: Normal examination. Ambrocio Le Jr., MD Chest X-Ray 12/06/161821 Signed Impressions: Service Date/Time: Tuesday, December 06, 2016 19:25 - CONCLUSION: No acute disease. Ambrocio Le Jr., MD Cervical Spine CT 12/06/161821 Signed Impressions: Service Date/Time: Tuesday, December 06, 2016 19:06 - CONCLUSION: 1. No fracture or dislocation. 2. Multilevel degenerative changes with patent central canal. Ambrocio Le Jr., MD Knee X-Ray 12/06/16 0000 Signed Impressions: Service Date/Time: Tuesday, December 06, 2016 19:28 - CONCLUSION: Knee arthroplasty. No acute abnormality. Ambrocio Le Jr., MD Hip and Pelvis X-Ray 12/06/16 0000 Signed Impressions: Service Date/Time: Tuesday, December 06, 2016 19:27 - CONCLUSION: No acute disease. Ambrocio Le Jr., MD Assessment and Plan Problem List: (1) Physical deconditioning ICD Code: R53.81 Status: Acute (2) Hip pain, left ICD Code: M25.552 Status: Acute (3) Osteomalacia ICD Code: M83.9 Status: Acute Assessment and Plan 76 y/o female with a history of anal cancer (post chemo and radiation 05/25/16) , htn, and hyperlipidemia presented to the ED with complaints of increased weakness and pain to right knee and left hip. She is a poor historian when discussing the time line of her chemo, radiation, and names of her Doctors. She states she has been wheelchair bound for the last year, and the last week she has fallen twice out of her wheel chair when trying to transfer to the bed. Severe physical deconditioning, with hip and knee pain from falls Images: hip xray and knee xray negative. -PT eval and treat, patient will most likely need rehab -TSH, B12 ordered -Orthostatic vitals -Morphine IV for pain management, requiring multiple doses, will transfer to [facility] for closer monitoring and pain control -Cont home gabapentin -Consult Dr. Chand who patient was following outpatient Osteomalacia, Vitamin D level 11, patient with increase weakness -Vitamin D3 5000 units QD, will need recheck in 4 wks outpatient Elevated troponin, troponin .06-->.06-->.05, no chest pain -Monitor tele, and vitals Right foot drop -Multipodis boot ordered Sacral pressure ulcer, stage III -consult wound care -Turn Q2h Questionable cdiff, patient had stool samples tested this week in outpatient lab , she does not know the results -Cont Flagyl 500mg TID -C diff ordered Chronic medical conditions Gerd, HLD, and osteoarthritis: Resume home medications DVT prophylaxis: Xarelto Discussed with Dr. Craven Discussed Condition With Patient The exam, history, and the medical decision-making described in the above note were completed with the assistance of the mid-level provider. I reviewed and agree with the findings presented. I attest that I had a [id number] encounter with the patient on the same day, and personally performed and documented my assessment and findings in the medical record.patient with weakness. Vitamin D low. Replacing. Continue to work with physical therapy. discussed with case management.Appreciate case management assistance. Alicia Sawyer Dec 07, 2016 11:33 Arnaldo Craven MD Dec 10, 2016 11:45
[2016-12-07] MEDS: GABAPENTIN 400 MG CAP PO SCH ×2 (15:44→18:34)
[2016-12-07] MEDS: MULTIVITAMIN TAB PO SCH (15:44)
[2016-12-07] MEDS: PENTOXIFYLLINE 400 MG CONTROLLED RELEASE TAB PO SCH ×2 (15:44→18:33)
[2016-12-07] MEDS: RIVAROXABAN 15 MG TAB PO SCH (15:44)
[2016-12-07] MEDS: PANTOPRAZOLE SOD 20 MG DELAYED RELEASE TAB PO SCH ×2 (15:44→21:05)
[2016-12-07] MEDS: DEXAMETHASONE 4 MG TAB PO SCH ×3 (15:45→23:33)
[2016-12-07] MEDS: metroNIDAZOLE 500 MG TAB PO SCH ×2 (15:45→18:33)
[2016-12-07] MEDS ORDERED: CHOLECALCIFEROL (VIT D3) 5000 UNIT CAP PO ONE (17:30)
[2016-12-07] MEDS: ATORVASTATIN 40 MG TAB PO SCH (21:05)
[2016-12-08 05:46] VITALS: BP 127/65; PULSE 82; RESP 18; TEMP 98.8; O2SAT 97
[2016-12-08] MEDS: DEXAMETHASONE 4 MG TAB PO SCH ×3 (05:55→18:20)
[2016-12-08 09:44] VITALS: PULSE 73
[2016-12-08] MEDS: RIVAROXABAN 15 MG TAB PO SCH (09:44)
[2016-12-08] MEDS: CHOLECALCIFEROL (VIT D3) 5000 UNIT CAP PO SCH (09:44)
[2016-12-08] MEDS: MULTIVITAMIN TAB PO SCH (09:44)
[2016-12-08] MEDS: PANTOPRAZOLE SOD 20 MG DELAYED RELEASE TAB PO SCH ×2 (09:44→20:07)
[2016-12-08] MEDS: GABAPENTIN 400 MG CAP PO SCH ×3 (09:44→18:19)
[2016-12-08] MEDS: PENTOXIFYLLINE 400 MG CONTROLLED RELEASE TAB PO SCH ×3 (09:44→18:20)
[2016-12-08] MEDS: SODIUM CHLORIDE 0.9% FLUSH 10 ML FLUSH IV FLUSH SCH ×2 (09:44→20:07)
[2016-12-08] MEDS: metroNIDAZOLE 500 MG TAB PO SCH ×3 (09:44→18:20)
--- NOTE | 2016-12-08 10:06 | HHI.PR ---
Subjective Remarks Follow-up for weakness. The patient complains of sacral pain today. She states that she has not received care for her sacral wound before. She denies any chest pain or shortness of breath. She denies any nausea or vomiting and is tolerating diet. RN at bedside, patient had single a semi-formed bowel movement last night, no definite diarrhea. Agreeable for SNF if needed. She states the year is and does not know the month. Oriented to person and place. 1030 wound assessed with green building materials designer Objective Vitals Vital Signs Date Time Temp Pulse Resp B/P Pulse Ox O2 Delivery O2 Flow Rate FiO2 12/08/16 05:46 98.8 82 18 127/65 97 12/07/16 23:28 98.5 82 18 117/65 97 12/07/16 22:07 80 12/07/16 15:39 98.4 98 21 95/56 97 12/07/16 11:36 98.4 79 16 93/54 99 I/O 12/07/16 12/07/16 12/07/16 12/08/16 12/08/16 12/08/16 07:00 15:00 23:00 07:00 15:00 23:00 Intake Total 720 ml Balance 720 ml Intake Oral 720 ml # Voids 2 Result Diagram: 12/07/16 0147 12/07/16 014 Imaging Last Impressions Head CT 12/06/161821 Signed Impressions: Service Date/Time: Tuesday, December 06, 2016 19:06 - CONCLUSION: Normal examination. Ambrocio Le Jr., MD Chest X-Ray 12/06/161821 Signed Impressions: Service Date/Time: Tuesday, December 06, 2016 19:25 - CONCLUSION: No acute disease. Ambrocio Le Jr., MD Cervical Spine CT 12/06/161821 Signed Impressions: Service Date/Time: Tuesday, December 06, 2016 19:06 - CONCLUSION: 1. No fracture or dislocation. 2. Multilevel degenerative changes with patent central canal. Ambrocio Le Jr., MD Knee X-Ray 12/06/16 0000 Signed Impressions: Service Date/Time: Tuesday, December 06, 2016 19:28 - CONCLUSION: Knee arthroplasty. No acute abnormality. Ambrocio Le Jr., MD Hip and Pelvis X-Ray 12/06/16 0000 Signed Impressions: Service Date/Time: Tuesday, December 06, 2016 19:27 - CONCLUSION: No acute disease. Ambrocio Le Jr., MD Objective Remarks GENERAL: Well-developed well-nourished. In no acute distress. Oriented 2. SKIN: Warm and dry. Port on right chest wall. A few small areas of ecchymosis on the lower extremities. Unstageable sacral decubitus ulcer with no surrounding erythema or drainage. HEENT: Normocephalic. Pupils equal and round. Mucous membranes pink and moist. CARDIOVASCULAR: Regular rate and rhythm. No murmur appreciated. RESPIRATORY: No accessory muscle use. Clear to auscultation. Breath sounds equal bilaterally. GASTROINTESTINAL: Abdomen soft, non-tender, nondistended. Bowel sounds x4. MUSCULOSKELETAL: No obvious deformities. No clubbing or cyanosis. No edema. NEUROLOGICAL: Awake and alert. No focal neurological deficits. Moves upper and lower extremities spontaneously. Normal speech. PSYCHIATRIC: Appropriate mood and affect; insight and judgment fair. A/P Problem List: (1) Physical deconditioning ICD Code: R53.81 Status: Acute (2) Hip pain, left ICD Code: M25.552 Status: Acute (3) Osteomalacia ICD Code: M83.9 Status: Acute Assessment and Plan 76 y/o female with a history of anal cancer (post chemo and radiation 05/25/16) , htn, and hyperlipidemia presented to the ED with complaints of increased weakness and pain to right knee and left hip. She is a poor historian when discussing the time line of her chemo, radiation, and names of her Doctors. She states she has been wheelchair bound for the last year, and the last week she has fallen twice out of her wheel chair when trying to transfer to the bed. Severe physical deconditioning, with hip and knee pain from falls Reviewed: hip xray and knee xray negative for fracture. Vitamin D low. B12, CPK, and TSH within normal limits. -PT eval and treat, patient needs rehab, case management consulted -Orthostatic vitals -Morphine IV for pain management -Cont home gabapentin -Consulted rehabilitation medicine, Dr. Chand, who patient was following outpatient Osteomalacia, Vitamin D level 11, patient with increase weakness -Vitamin D3 5000 units QD, will need recheck in 4 wks outpatient Elevated troponin, troponin .06-->.06-->.05, plaque, nonischemic, no chest pain -Monitor tele, and vitals Right foot drop -Multipodis boot ordered Sacral pressure ulcer, stage III -consulted green building materials designer -Turn Q2h Questionable cdiff, patient reports had stool samples tested 3 weeks ago in outpatient lab, she does not know the results -Cont Flagyl 500mg TID -C diff ordered Chronic medical conditions Gerd, HLD, and osteoarthritis: Stable. Continue home medications DVT prophylaxis: Xarelto Discharge Planning Follow-up rehabilitation medicine and wound care recommendations. SNF at [place]. Waqas Agustin Dec 08, 2016 10:06
[2016-12-08] MEDS: MORPHINE SULFATE 4 MG/ML INJ IV PUSH PRN ×2 (10:25→13:38)
[2016-12-08 11:32] VITALS: BP 107/64; PULSE 83; RESP 19; TEMP 97.9; O2SAT 97
[2016-12-08 16:00] VITALS: BP 98/58; PULSE 82; RESP 18; TEMP 98; O2SAT 97
--- NOTE | 2016-12-08 18:24 | MB ---
cc: MANSOOR ROBERTS MD DATE OF CONSULTATION: 12/08/2016 HISTORY OF PRESENT ILLNESS This 76-year-old was six months status post radiation and chemotherapy for anal cancer. 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 Recently she had developed severe diarrhea in the past three weeks and was seen in my office a week ago. Sigmoidoscopy showed no evidence of pseudomembranous colitis. She was noted to have significant skin ulceration involving the perianal skin and also the presacral skin which was felt to be due to radiation damage combined with stool contact with the skin as well as pressure from sitting in a wheelchair due to neuropathy. She was treated with Calmoseptine cream for the skin and a trial Flagyl. She and her daughter state that the diarrhea is resolved now and this has improved the situation. She was admitted to the hospital with generalized weakness and difficulty caring for the patient at home. She is planning a transition to rehab. On exam the ulcerations in the presacral and perianal skin areas are improving. She has Calmoseptine cream in place at this time. ASSESSMENT 1. Perianal and presacral skin ulcerations secondary to radiation and pressure from sitting in a wheelchair combined with diarrhea. The diarrhea is resolving. 2. No evidence of anal cancer recurrence. PLAN We will evaluate for any additional wound recommendations, possibly DuoDerm over the presacral component. Arrangements are being made for transfer to rehab. I will continue to follow the patient in my office. MD MARLY Gamez/INDY /4:58 PM /6:03 PM KARLA
[2016-12-08] MEDS: ATORVASTATIN 40 MG TAB PO SCH (20:07)
[2016-12-08 20:17] VITALS: BP 114/73; PULSE 77; RESP 18; TEMP 97.3; O2SAT 98
[2016-12-09] VITALS (9 sets, daily range): BP systolic 100–159; BP diastolic 62–97; PULSE 71–92; RESP 16–20; TEMP 97.4–98.6; O2SAT 93–100
[2016-12-09] MEDS: DEXAMETHASONE 4 MG TAB PO SCH ×4 (01:05→17:59)
[2016-12-09] MEDS: metroNIDAZOLE 500 MG TAB PO SCH ×3 (08:31→17:59)
[2016-12-09] MEDS: PANTOPRAZOLE SOD 20 MG DELAYED RELEASE TAB PO SCH ×2 (08:31→20:05)
[2016-12-09] MEDS: MULTIVITAMIN TAB PO SCH (08:31)
[2016-12-09] MEDS: SODIUM CHLORIDE 0.9% FLUSH 10 ML FLUSH IV FLUSH SCH ×2 (08:31→20:05)
[2016-12-09] MEDS: GABAPENTIN 400 MG CAP PO SCH ×3 (08:31→17:59)
[2016-12-09] MEDS: RIVAROXABAN 15 MG TAB PO SCH (08:31)
[2016-12-09] MEDS: CHOLECALCIFEROL (VIT D3) 5000 UNIT CAP PO SCH (10:28)
[2016-12-09] MEDS: PENTOXIFYLLINE 400 MG CONTROLLED RELEASE TAB PO SCH ×3 (10:28→17:59)
--- NOTE | 2016-12-09 11:05 | HHI.PR ---
Subjective Remarks Patient continues to have weakness, has yet to work with PT today. She has decreased appetite, not drinking Ensure as ordered. No fever, chills, cp, sob, abd pain. She does continue to complain of tenderness over her sacrum. Objective Vitals Vital Signs Date Time Temp Pulse Resp B/P Pulse Ox O2 Delivery O2 Flow Rate FiO2 12/09/16 08:40 92 12/09/16 08:00 97.5 72 20 159/97 93 12/09/16 04:23 97.5 71 18 155/71 98 12/09/16 00:16 97.5 73 16 115/71 95 12/08/16 20:17 97.3 77 18 114/73 98 12/08/16 16:00 98.0 82 18 98/58 97 12/08/16 11:32 97.9 83 19 107/64 97 I/O 12/08/16 12/08/16 12/08/16 12/09/16 12/09/16 12/09/16 07:00 15:00 23:00 07:00 15:00 23:00 Intake Total 360 ml 100 ml Output Total 800 ml Balance 360 ml -700 ml Intake Oral 360 ml 100 ml Output Urine Total 800 ml # Voids 1 2 # Bowel Movements 1 1 Result Diagram: 12/07/1614612/07/16146 Objective Remarks GENERAL: Well-developed well-nourished. In no acute distress. Oriented 2. SKIN: Warm and dry. Port on right chest wall. A few small areas of ecchymosis on the lower extremities. Un-stageable sacral decubitus ulcer with no surrounding erythema or drainage. HEENT: Normocephalic. Pupils equal and round. Mucous membranes pink and moist. CARDIOVASCULAR: Regular rate and rhythm. No murmur appreciated. RESPIRATORY: No accessory muscle use. Clear to auscultation. Breath sounds equal bilaterally. GASTROINTESTINAL: Abdomen soft, non-tender, nondistended. Bowel sounds present MUSCULOSKELETAL: No obvious deformities. No clubbing or cyanosis. No edema. NEUROLOGICAL: Awake and alert. No focal neurological deficits. Moves upper and lower extremities spontaneously. Normal speech. PSYCHIATRIC: Appropriate mood and affect; insight and judgment fair. Urinary Catheter: No A/P Problem List: (1) Physical deconditioning ICD Code: R53.81 Status: Acute (2) Hip pain, left ICD Code: M25.552 Status: Acute (3) Osteomalacia ICD Code: M83.9 Status: Acute Assessment and Plan 76 y/o female with a history of anal cancer (post chemo and radiation 05/25/16) , htn, and hyperlipidemia presented to the ED with complaints of increased weakness and pain to right knee and left hip. She is a poor historian when discussing the time line of her chemo, radiation, and names of her Doctors. She states she has been wheelchair bound for the last year, and the last week she has fallen twice out of her wheel chair when trying to transfer to the bed. Severe physical deconditioning, with hip and knee pain from falls Reviewed: hip xray and knee xray negative for fracture. Vitamin D low. B12, CPK, and TSH within normal limits. -PT eval and treat, patient needs rehab, case management consulted -Orthostatic vitals -Morphine IV for pain management -Cont home gabapentin -Consulted rehabilitation medicine, Dr. Chand, who patient was following outpatient -DC planning for dc to rehab Osteomalacia, Vitamin D level 11, patient with increase weakness -Vitamin D3 5000 units QD, will need recheck in 4 wks outpatient Elevated troponin, troponin .06-->.06-->.05, plaque, nonischemic, no chest pain -Monitor tele, and vitals Right foot drop -Multipodis boot ordered Sacral pressure ulcer, stage III -consulted american history teacher -Turn Q2h Questionable cdiff, patient reports had stool samples tested 3 weeks ago in outpatient lab, she does not know the results -Cont Flagyl 500mg TID -C diff ordered Chronic medical conditions Gerd, HLD, and osteoarthritis: Stable. Continue home medications DVT prophylaxis: Xarelto Heart healthy diet, ensure supplemented Discharge Planning will need dc to rehab Niesha Painter MD Dec 09, 2016 11:05
[2016-12-09] MEDS: ATORVASTATIN 40 MG TAB PO SCH (20:05)
[2016-12-10] VITALS (7 sets, daily range): BP systolic 100–118; BP diastolic 61–78; PULSE 77–100; RESP 18–20; TEMP 97.2–98.1; O2SAT 93–98
[2016-12-10] MEDS: DEXAMETHASONE 4 MG TAB PO SCH ×4 (01:02→23:09)
[2016-12-10] MEDS: MORPHINE SULFATE 4 MG/ML INJ IV PUSH PRN ×2 (01:09→12:03)
[2016-12-10] MEDS: metroNIDAZOLE 500 MG TAB PO SCH ×3 (08:42→17:32)
[2016-12-10] MEDS: MULTIVITAMIN TAB PO SCH (08:43)
[2016-12-10] MEDS: GABAPENTIN 400 MG CAP PO SCH ×3 (08:43→17:32)
[2016-12-10] MEDS: PANTOPRAZOLE SOD 20 MG DELAYED RELEASE TAB PO SCH ×2 (08:43→20:17)
[2016-12-10] MEDS: RIVAROXABAN 15 MG TAB PO SCH (08:43)
[2016-12-10] MEDS: SODIUM CHLORIDE 0.9% FLUSH 10 ML FLUSH IV FLUSH SCH ×2 (08:58→20:20)
[2016-12-10] MEDS: CHOLECALCIFEROL (VIT D3) 5000 UNIT CAP PO SCH (08:58)
[2016-12-10] MEDS: PENTOXIFYLLINE 400 MG CONTROLLED RELEASE TAB PO SCH ×3 (08:58→17:32)
[2016-12-10] MEDS ORDERED: ERGOCALCIFEROL (VIT D2) 50,000 UNIT CAP PO SCH (11:15)
--- NOTE | 2016-12-10 13:26 | HHI.PR ---
Subjective Remarks Follow-up for deconditioning Still with generalized weakness, has better appetite today, eating more, encouraged to eat more. No nausea or vomiting. No chest pain. No abdominal pain. Objective Vitals Vital Signs Date Time Temp Pulse Resp B/P Pulse Ox O2 Delivery O2 Flow Rate FiO2 12/10/16 08:48 77 12/10/16 08:00 97.5 81 20 117/78 95 12/10/16 04:00 97.2 84 18 118/70 93 12/10/16 00:00 97.8 86 20 107/64 95 12/09/16 20:00 98.6 84 16 100/62 96 12/09/16 19:55 92 12/09/16 16:00 97.4 85 20 102/66 100 I/O 12/09/16 12/09/16 12/09/16 12/10/16 12/10/16 12/10/16 07:00 15:00 23:00 07:00 15:00 23:00 Intake Total 100 ml 480 ml 240 ml Output Total 800 ml 1075 ml Balance -700 ml 480 ml 240 ml -1075 ml Intake Oral 100 ml 480 ml 240 ml Output Urine Total 800 ml 1075 ml Bladder Scan Volume Amount 800 ml # Voids 2 2 # Bowel Movements 1 0 Result Diagram: 12/07/1614612/07/16146 Objective Remarks GENERAL: Well-developed well-nourished. In no acute distress. Oriented 2. SKIN: Warm and dry. Port on right chest wall. A few small areas of ecchymosis on the lower extremities. Un-stageable sacral decubitus ulcer with no surrounding erythema or drainage. CARDIOVASCULAR: Regular rate and rhythm. No murmur appreciated. RESPIRATORY: No accessory muscle use. Clear to auscultation. Breath sounds equal bilaterally. GASTROINTESTINAL: Abdomen soft, non-tender, nondistended. Bowel sounds present MUSCULOSKELETAL: No edema. NEUROLOGICAL: Awake and alert. No focal neurological deficits. Moves upper and lower extremities spontaneously. Normal speech. Positive for generalized weakness A/P Problem List: (1) Physical deconditioning ICD Code: R53.81 Status: Acute (2) Hip pain, left ICD Code: M25.552 Status: Acute (3) Osteomalacia ICD Code: M83.9 Status: Acute Assessment and Plan 76 y/o female with a history of anal cancer (post chemo and radiation 05/25/16) , htn, and hyperlipidemia presented to the ED with complaints of increased weakness and pain to right knee and left hip. She is a poor historian when discussing the time line of her chemo, radiation, and names of her Doctors. She states she has been wheelchair bound for the last year, and the last week she has fallen twice out of her wheel chair when trying to transfer to the bed. Severe physical deconditioning, with hip and knee pain from falls Reviewed: hip xray and knee xray negative for fracture. Vitamin D low. B12, CPK, and TSH within normal limits. -PT eval and treat, patient needs rehab, case management consulted and awaiting placement -Cont home gabapentin -Consulted rehabilitation medicine, Dr. Chand, who patient was following outpatient -DC planning for dc to rehab Osteomalacia, Vitamin D level 11, patient with increase weakness -Vitamin D3 5000 units QD, will need recheck in 4 wks outpatient, would give one dose of high-dose vitamin D today. Elevated troponin, troponin .06-->.06-->.05, plaque, nonischemic, no chest pain -Monitor tele, and vitals Right foot drop -Multipodis boot ordered Sacral pressure ulcer, stage III -consulted motel manager -Turn Q2h Questionable cdiff, patient reports had stool samples tested 3 weeks ago in outpatient lab, she does not know the results -Cont Flagyl 500mg TID -C diff ordered, follow-up results Chronic medical conditions Gerd, HLD, and osteoarthritis: Stable. Continue home medications DVT prophylaxis: Xarelto Heart healthy diet, ensure supplemented Discharge Planning Discharge to SNF once placement ready Vega Murrell MD Dec 10, 2016 13:26
[2016-12-10] MEDS: ATORVASTATIN 40 MG TAB PO SCH (20:17)
[2016-12-10] MEDS: oxyCODONE/ACETAMINOPHEN 5 MG/325 MG TAB PO PRN (20:17)
[2016-12-11] VITALS (7 sets, daily range): BP systolic 103–125; BP diastolic 54–72; PULSE 75–89; RESP 16–20; TEMP 97.2–98.5; O2SAT 92–96
[2016-12-11] MEDS: oxyCODONE/ACETAMINOPHEN 5 MG/325 MG TAB PO PRN ×3 (04:01→20:55)
[2016-12-11] MEDS: metroNIDAZOLE 500 MG TAB PO SCH ×3 (08:20→18:00)
[2016-12-11] MEDS: GABAPENTIN 400 MG CAP PO SCH ×3 (08:20→18:00)
[2016-12-11] MEDS: PENTOXIFYLLINE 400 MG CONTROLLED RELEASE TAB PO SCH ×3 (08:20→18:00)
[2016-12-11] MEDS: PANTOPRAZOLE SOD 20 MG DELAYED RELEASE TAB PO SCH ×2 (08:20→20:55)
[2016-12-11] MEDS: RIVAROXABAN 15 MG TAB PO SCH (08:20)
[2016-12-11] MEDS: CHOLECALCIFEROL (VIT D3) 5000 UNIT CAP PO SCH (08:20)
[2016-12-11] MEDS: MULTIVITAMIN TAB PO SCH (08:21)
[2016-12-11] MEDS: SODIUM CHLORIDE 0.9% FLUSH 10 ML FLUSH IV FLUSH SCH ×2 (08:21→20:55)
[2016-12-11] MEDS: DEXAMETHASONE 4 MG TAB PO SCH (12:00)
[2016-12-11 14:52] LABS: C. DIFF EPI 027 PRESUMPTIVE NEGATIVE (NEGATIVE); C. DIFF TOXIN PCR NEGATIVE (NEGATIVE)
--- NOTE | 2016-12-11 16:38 | HHI.PR ---
Subjective Remarks Patient reports feeling okay except for pain. Discussed with RN. Patient would benefit from increased frequency of pain medication. Still with generalized weakness. Case management working on SNF placement. Objective Vitals Vital Signs Date Time Temp Pulse Resp B/P Pulse Ox O2 Delivery O2 Flow Rate FiO2 12/11/16 12:00 98.1 75 20 105/56 92 12/11/16 08:00 97.2 78 20 122/61 94 12/11/16 04:00 97.8 79 18 125/72 96 12/11/16 00:00 98.1 76 16 103/66 96 12/10/16 20:00 98.1 88 18 100/61 96 12/10/16 20:00 100 I/O 12/10/16 12/10/16 12/10/16 12/11/16 12/11/16 12/11/16 07:00 15:00 23:00 07:00 15:00 23:00 Intake Total 1200 ml 240 ml 120 ml Output Total 1075 ml 725 ml 400 ml 300 ml Balance -1075 ml 475 ml -160 ml -180 ml Intake Oral 1200 ml 240 ml 120 ml Output Urine Total 1075 ml 725 ml 400 ml 300 ml Bladder Scan Volume Amount 800 ml # Bowel Movements 0 0 0 Result Diagram: 12/07/1614612/07/16146 Imaging Last Impressions Head CT 12/06/161821 Signed Impressions: Service Date/Time: Tuesday, December 06, 2016 19:06 - CONCLUSION: Normal examination. Ambrocio Le Jr., MD Chest X-Ray 12/06/161821 Signed Impressions: Service Date/Time: Tuesday, December 06, 2016 19:25 - CONCLUSION: No acute disease. Ambrocio Le Jr., MD Cervical Spine CT 12/06/161821 Signed Impressions: Service Date/Time: Tuesday, December 06, 2016 19:06 - CONCLUSION: 1. No fracture or dislocation. 2. Multilevel degenerative changes with patent central canal. Ambrocio Le Jr., MD Knee X-Ray 12/06/16 0000 Signed Impressions: Service Date/Time: Tuesday, December 06, 2016 19:28 - CONCLUSION: Knee arthroplasty. No acute abnormality. Ambrocio Le Jr., MD Hip and Pelvis X-Ray 12/06/16 0000 Signed Impressions: Service Date/Time: Tuesday, December 06, 2016 19:27 - CONCLUSION: No acute disease. Ambrocio Le Jr., MD Objective Remarks GENERAL: This is a well-nourished, well-developed patient, in no apparent distress. CARDIOVASCULAR: Normal rate and regular rhythm without murmurs, gallops, or rubs. RESPIRATORY: Good respiratory efforts. Breath sounds equal and clear to auscultation bilaterally. GASTROINTESTINAL: Abdomen soft, non-tender, non-distended. Normal active bowel sounds MUSCULOSKELETAL: Extremities without cyanosis, or edema. NEURO: Awake and alert. Moves all ext x4. However generalized weakness noted. PSYCH: Appropriate mood and affect. A/P Problem List: (1) Physical deconditioning ICD Code: R53.81 Status: Acute (2) Hip pain, left ICD Code: M25.552 Status: Acute (3) Osteomalacia ICD Code: M83.9 Status: Acute Assessment and Plan 76 y/o female with a history of anal cancer (post chemo and radiation 05/25/16) , htn, and hyperlipidemia presented to the ED with complaints of increased weakness and pain to right knee and left hip. She is a poor historian when discussing the time line of her chemo, radiation, and names of her Doctors. She states she has been wheelchair bound for the last year, and the last week she has fallen twice out of her wheel chair when trying to transfer to the bed. Severe physical deconditioning, with hip and knee pain from falls Reviewed: hip xray and knee xray negative for fracture. Vitamin D low. B12, CPK, and TSH within normal limits. -PT eval and treat, patient needs rehab, case management consulted and awaiting placement -Cont home gabapentin -Consulted rehabilitation medicine, Dr. Chand, who patient was following outpatient -Probable DC in a.m. once arrangements are made. Osteomalacia, Vitamin D level 11, patient with increase weakness -Vitamin D3 5000 units QD, will need recheck in 4 wks outpatient, status post 1 dose of vitamin D Elevated troponin, troponin .06-->.06-->.05, plaque, nonischemic, no chest pain -Monitor tele, and vitals Right foot drop -Multipodis boot ordered Sacral pressure ulcer, stage III -consulted nuclear medical technologist -Turn Q2h Questionable cdiff, patient reports had stool samples tested 3 weeks ago in outpatient lab, she does not know the results -Cont Flagyl 500mg TID -C diff ordered, follow-up results Chronic medical conditions Gerd, HLD, and osteoarthritis: Stable. Continue home medications DVT prophylaxis: Xarelto Discharge Planning DC to SNF in AM once arrangements are made. Cheko King MD Dec 11, 2016 16:38
[2016-12-11] MEDS ORDERED: FENT25T T-DERMAL (16:43)
[2016-12-11] MEDS ORDERED: DEXA4TAB PO (16:43)
[2016-12-11] MEDS ORDERED: HYDR-3288 PO (16:43)
[2016-12-11] MEDS: ATORVASTATIN 40 MG TAB PO SCH (20:55)
[2016-12-12] VITALS (7 sets, daily range): BP systolic 105–122; BP diastolic 63–95; PULSE 72–91; RESP 16–18; TEMP 97.4–98; O2SAT 94–98
[2016-12-12] MEDS: oxyCODONE/ACETAMINOPHEN 5 MG/325 MG TAB PO PRN ×4 (01:09→16:22)
[2016-12-12] MEDS: DEXAMETHASONE 4 MG TAB PO SCH ×2 (01:09→12:19)
[2016-12-12] MEDS: metroNIDAZOLE 500 MG TAB PO SCH ×3 (08:37→16:22)
[2016-12-12] MEDS: CHOLECALCIFEROL (VIT D3) 5000 UNIT CAP PO SCH (08:37)
[2016-12-12] MEDS: SODIUM CHLORIDE 0.9% FLUSH 10 ML FLUSH IV FLUSH SCH ×2 (08:38→20:38)
[2016-12-12] MEDS: GABAPENTIN 400 MG CAP PO SCH ×3 (08:38→16:22)
[2016-12-12] MEDS: PENTOXIFYLLINE 400 MG CONTROLLED RELEASE TAB PO SCH ×3 (08:38→16:22)
[2016-12-12] MEDS: MULTIVITAMIN TAB PO SCH (08:38)
[2016-12-12] MEDS: PANTOPRAZOLE SOD 20 MG DELAYED RELEASE TAB PO SCH ×2 (08:38→20:38)
[2016-12-12] MEDS: RIVAROXABAN 15 MG TAB PO SCH (08:38)
--- NOTE | 2016-12-12 12:26 | HHI.PR ---
Subjective Remarks Pt states she feels well. has no complaints. denies any CP/SOB/N/V. would like to eat lunch discussed w RN, no concerns. Objective Vitals Vital Signs Date Time Temp Pulse Resp B/P Pulse Ox O2 Delivery O2 Flow Rate FiO2 12/12/16 09:00 80 12/12/16 08:00 97.7 84 18 116/71 94 12/12/16 06:01 98.0 83 18 114/69 95 12/12/16 00:00 97.6 77 18 110/63 96 12/11/16 20:21 81 12/11/16 20:00 97.9 75 18 105/56 95 12/11/16 16:00 98.5 89 20 104/54 93 I/O 12/11/16 12/11/16 12/11/16 12/12/16 12/12/16 12/12/16 07:00 15:00 23:00 07:00 15:00 23:00 Intake Total 120 ml 480 ml 240 ml 240 ml Output Total 300 ml 625 ml 450 ml 350 ml Balance -180 ml -145 ml -210 ml -110 ml Intake Oral 120 ml 480 ml 240 ml 240 ml IV Total 0 ml 0 ml Output Urine Total 300 ml 625 ml 450 ml 350 ml # Bowel Movements 0 0 0 1 Imaging Last Impressions Head CT 12/06/161821 Signed Impressions: Service Date/Time: Tuesday, December 06, 2016 19:06 - CONCLUSION: Normal examination. Ambrocio Le Jr., MD Chest X-Ray 12/06/161821 Signed Impressions: Service Date/Time: Tuesday, December 06, 2016 19:25 - CONCLUSION: No acute disease. Ambrocio Le Jr., MD Cervical Spine CT 12/06/161821 Signed Impressions: Service Date/Time: Tuesday, December 06, 2016 19:06 - CONCLUSION: 1. No fracture or dislocation. 2. Multilevel degenerative changes with patent central canal. Ambrocio Le Jr., MD Knee X-Ray 12/06/16 Signed Impressions: Service Date/Time: Tuesday, December 06, 2016 19:28 - CONCLUSION: Knee arthroplasty. No acute abnormality. Ambrocio Le Jr., MD Hip and Pelvis X-Ray 12/06/16 0000 Signed Impressions: Service Date/Time: Tuesday, December 06, 2016 19:27 - CONCLUSION: No acute disease. Ambrocio Le Jr., MD Objective Remarks GENERAL: This is a well-nourished, well-developed patient, in no apparent distress. CARDIOVASCULAR: Normal rate and regular rhythm without murmurs RESPIRATORY: Good respiratory efforts. Breath sounds equal and clear to auscultation bilaterally. GASTROINTESTINAL: Abdomen soft, non-tender, non-distended. Normal active bowel sounds MUSCULOSKELETAL: Extremities without edema. NEURO: Awake and alert. Moves all ext x4. However generalized weakness noted. PSYCH: Appropriate mood and affect. A/P Problem List: (1) Physical deconditioning ICD Code: R53.81 Status: Acute (2) Hip pain, left ICD Code: M25.552 Status: Acute (3) Osteomalacia ICD Code: M83.9 Status: Acute Assessment and Plan 76 y/o female with a history of anal cancer (post chemo and radiation 05/25/16) , htn, and hyperlipidemia presented to the ED with complaints of increased weakness and pain to right knee and left hip. She is a poor historian when discussing the time line of her chemo, radiation, and names of her Doctors. She states she has been wheelchair bound for the last year, and the last week she has fallen twice out of her wheel chair when trying to transfer to the bed. Severe physical deconditioning, with hip and knee pain from falls Reviewed: hip xray and knee xray negative for fracture. Vitamin D low. B12, CPK, and TSH within normal limits. -PT eval and treat, patient needs rehab, case management consulted and awaiting placement -Cont home gabapentin -Consulted rehabilitation medicine, Dr. Chand, who patient was following outpatient -Probable DC in a.m. once arrangements are made. Osteomalacia, Vitamin D level 11, patient with increase weakness -Vitamin D3 5000 units QD, will need recheck in 4 wks outpatient, status post 1 dose of vitamin D Elevated troponin, troponin .06-->.06-->.05, plaque, nonischemic, no chest pain -Monitor tele, and vitals Right foot drop -Multipodis boot ordered Sacral pressure ulcer, stage III -consulted cook dessert -Turn Q2h Questionable cdiff, patient reports had stool samples tested 3 weeks ago in outpatient lab, she does not know the results -d/c Flagyl 500mg TID -C diff here neg Chronic medical conditions Gerd, HLD, and osteoarthritis: Stable. Continue home medications DVT prophylaxis: Xarelto Discharge Planning awaiting placement Ting Mercer MD Dec 12, 2016 12:26
[2016-12-12] MEDS: ATORVASTATIN 40 MG TAB PO SCH (20:38)
[2016-12-13] VITALS (8 sets, daily range): BP systolic 95–141; BP diastolic 55–96; PULSE 71–87; RESP 16–20; TEMP 97.2–98.4; O2SAT 93–97
[2016-12-13] MEDS: oxyCODONE/ACETAMINOPHEN 5 MG/325 MG TAB PO PRN ×2 (00:05→06:39)
[2016-12-13] MEDS: DEXAMETHASONE 4 MG TAB PO SCH ×2 (00:05→12:31)
[2016-12-13] MEDS: RIVAROXABAN 15 MG TAB PO SCH (08:20)
[2016-12-13] MEDS: MULTIVITAMIN TAB PO SCH (08:20)
[2016-12-13] MEDS: PANTOPRAZOLE SOD 20 MG DELAYED RELEASE TAB PO SCH ×2 (08:20→20:12)
[2016-12-13] MEDS: SODIUM CHLORIDE 0.9% FLUSH 10 ML FLUSH IV FLUSH SCH ×2 (08:20→20:12)
[2016-12-13] MEDS: GABAPENTIN 400 MG CAP PO SCH ×3 (08:20→18:11)
[2016-12-13] MEDS: CHOLECALCIFEROL (VIT D3) 5000 UNIT CAP PO SCH (08:20)
[2016-12-13] MEDS: PENTOXIFYLLINE 400 MG CONTROLLED RELEASE TAB PO SCH ×3 (08:20→18:10)
--- NOTE | 2016-12-13 09:49 | PD.CONS ---
[facility] Service Rehabilitation Medicine Consult Requested By Saundra Mercer M.D. Reason for Consult Comprehensive rehabilitation evaluation. Primary Care Physician Elizabeth Kaba History of Present Illness Selma Lester is a 76-year-old female admitted [facility] 12/07/16 with increased generalized weakness and right knee/left hip pain. She was seen for initial outpatient encounter 11/23/16 with right lower extremity pain thought to be due to either sciatica or lumbar plexopathy. She was referred for outpatient physical therapy. Gabapentin was to be discontinued. When necessary [place] was provided to facilitate progress with rehabilitation therapies. Patient was noted to have 2 falls from her wheelchair when transferring. Head CT was negative. CT the cervical spine showed no fracture dislocation but multilevel degenerative changes. Central canal was patent. Review of Systems Constitutional: COMPLAINS OF: Fatigue Eyes: DENIES: Diplopia Ears, nose, mouth, throat: DENIES: Throat pain Respiratory: DENIES: Shortness of breath Cardiovascular: DENIES: Chest pain Gastrointestinal: DENIES: Abdominal pain Genitourinary: COMPLAINS OF: Urinary frequency Musculoskeletal: COMPLAINS OF: Joint pain, Muscle aches Integumentary: DENIES: Pruritus Hematologic/lymphatic: DENIES: Bruising Immunologic/allergic: DENIES: Urticaria Neurologic: COMPLAINS OF: Poor Balance, DENIES: Headache Psychiatric: DENIES: Confusion Past Family Social History Allergies: Coded Allergies: No Known Allergies (Verified , 12/06/16) Past Medical History Anal cancer status post chemotherapy and radiation Hypertension Osteoarthritis DVT Hyperlipidemia GERD Past Surgical History None listed Current Medications Current Medications Medications (Trade) Dose Ordered Sig/Anette Route Start Time Stop Time Status Last Admin (NS Flush) 2 ml UNSCH PRN IV FLUSH 12/06/16 20:45 12/10/16 01:09 (NS Flush) 2 ml BID IV FLUSH 12/06/16 21:00 12/13/16 08:20 (Narcan Inj) 0.4 mg UNSCH PRN IV 12/06/16 20:45 (Lipitor) 40 mg HS PO 12/07/16 21:00 12/12/16 20:38 (Neurontin) 1,200 mg TID PO 12/07/16 13:00 12/13/16 08:20 (TRENtal SR) 400 mg TID PO 12/07/16 13:00 12/13/16 08:20 (Xarelto) 15 mg DAILY PO 12/07/16 12:00 12/13/16 08:20 (Theragran) 1 tab DAILY PO 12/07/16 12:00 12/13/16 08:20 (Protonix) 20 mg BID PO 12/07/16 12:00 12/13/16 08:20 (Vitamin D3) 5,000 units DAILY PO 12/08/16 09:00 12/13/16 08:20 (Decadron) 4 mg Q12H PO 12/11/16 00:00 12/13/16 00:05 (Percocet 5-325 Mg) 1 tab Q4H PRN PO 12/11/16 17:30 12/13/16 06:39 Family History Father: Myocardial infarction, alcohol abuse Mother: Stroke, osteoporosis Social History No tobacco or alcohol history. Prior to admission daughter was assisting with mobility and ADLs Exam I&O / VS 12/12/16 12/12/16 12/13/16 15:00 23:00 07:00 Intake Total 240 ml 240 ml 120 ml Output Total 700 ml 400 ml 150 ml Balance -460 ml -160 ml -30 ml Intake Oral 240 ml 240 ml 120 ml IV Total 0 ml Output Urine Total 700 ml 400 ml 150 ml # Bowel Movements 0 0 0 Vital Signs Date Time Temp Pulse Resp B/P Pulse Ox O2 Delivery O2 Flow Rate FiO2 12/13/16 08:00 97.3 83 18 106/68 95 12/13/16 04:19 98.4 71 20 141/96 97 12/13/16 04:00 97.3 80 16 100/68 96 12/13/16 00:00 97.8 77 16 116/69 95 12/12/16 20:00 97.7 72 16 117/71 98 12/12/16 16:00 97.4 91 18 122/66 97 12/12/16 12:00 97.8 88 16 105/95 94 General: Mild distress (Patient reporting pain) Respiratory: Lungs CTA, Non-labored respirations, BS equal Gastrointestinal: Positive Bowel Sounds, Non-Distended Cardiovascular: Normal rate, Regular Rhythm Psychiatric: Cooperative Orientation: oriented to Self, oriented to Situation Neurologic: EOM (intact), Facial Symmetry (symmetric), Speech (intelligible) Motor: Right Upper Extremity (4/5), Left Upper Extremity (4/5), Right Lower Extremity (3/5), Left Lower Extremity (3/5) Sensory Decreased in the lower extremities diffusely Clonus: Negative Assessment and Plan Diagnosis: (1) Generalized weakness Plan 1. Physical therapy is following. Now minimal assistance for bed mobility. Would mobilize up to stretcher chair with Roho cushion 2. Occupational therapy consulted and set up for feeding and mod assist for grooming 3. Would consider reevaluation per neurology 4. Case management is working on discharge planning for fdc facility 5. Turn and reposition every 2 hours to protect skin 6. Will follow while hospitalized and at discharge Thank you for this consultation Tash Chand MD Dec 13, 2016 09:49
--- NOTE | 2016-12-13 13:58 | HHI.DS ---
Discharge Summary Admission Date Dec 07, 2016 at 18:07 Discharge Date: Dec 13, 2016 Admitting Diagnosis generalized weakness, elevated troponin, inability to ambulate (1) Physical deconditioning ICD Code: R53.81 (2) Hip pain, left ICD Code: M25.552 Diagnosis: Principal (3) Osteomalacia ICD Code: M83.9 Diagnosis: Principal Procedures none Brief History - From Admission 76 y/o female with a history of anal cancer (post chemo and radiation 05/25/16) , htn, osteoarthritis, DVT (unknown time), and hyperlipidemia presented to the ED with complaints of increased weakness and pain to right knee and left hip. She is a poor historian when discussing the time line of her chemo, radiation, and names of her Doctors and medications she is taking. She lives alone and states her daughter comes every morning and she knows her medications and history. Tried contacting Daughter at home, no answer. Patient states she has been wheelchair bound for the last year, and the last week she has fallen twice out of her wheel chair when trying to transfer to the bed. She denies hitting her head.The last fall was on Sunday and she landed on her right knee and left hip. There is a noticeable hematoma to her left hip. Denies any chest pain, sob , or dizziness now or prior to her falling. She was most recently seen outpatient by Dr. Pleitez for increased weakness and she recommended outpatient PT for neurofacilitation, transfer, and gait training.and possible use of an AFB or KAFO brace. Patient is follow by Dr. Rojas who thinks this is sciatic related. Patient did fail PT at some point with home health. On 11/24/16 Neurology recommended decrease of gabapentin to decrease sedation. Over the last 6 months she has underwent multiple imaging outpatient. Lumbar spine MRI 11/01/16 showed disc bulges L1-2, L2-3, L3-4 with facet hypertrophy and right foraminal narrowing , L4-5 disc bulge with left foraminal narrowing and disc herniation and osteophytic complex L5-S1 abutting the S1 nerve root and lateral recess with left foraminal narrowing impinging the L5 nerve root. Cervical spine MRI 11/01/16 showed disc bulge C4-5 with left facet hypertrophy with foraminal narrowing C5 nerve root, disc herniation C5-6 and C6-7 compressing ventral thecal sac without neural impingement. Right thigh MRI without contrast 10/06/16 showed worsening tendinosis/myositis upper thigh musculature primarily adductors especially brevis and longus. potential insertional tendinosis/partial tearing of distal adductors at the level of the mid/upper thigh. Radiation induced changes would be in differential. MRI lumbar spine 08/02/16 showed levoscoliosis with degenerative changes L1-2 through L3-4,facet hypertrophy right L2-3 and bilaterally L3-4 and L4-5 and left disc bulge L5-S1 abutting the left L5 nerve root. MRI right hip 08/02/16 showed mild to moderate right hip osteoarthritis. MRI of pelvis 11/06/16 showed intramuscular signal abnormality and edema right gluteal musculature as well and obturator externus, internus and piriformis muscle possible myositis or treatment related changes from rectal carcinoma. EMG testing 11/14/[address] Donald Rojas and the impression was sensory axonal neuropathy, motor neuropathy left side, marked denervation right sciatic nerve territory with no evidence of radiculopathy. Likely direct sciatic nerve injury. Imaging Last Impressions Head CT 12/06/161821 Signed Impressions: Service Date/Time: Tuesday, December 06, 2016 19:06 - CONCLUSION: Normal examination. Ambrocio Le Jr., MD Chest X-Ray 12/06/161821 Signed Impressions: Service Date/Time: Tuesday, December 06, 2016 19:25 - CONCLUSION: No acute disease. Ambrocio Le Jr., MD Cervical Spine CT 12/06/161821 Signed Impressions: Service Date/Time: Tuesday, December 06, 2016 19:06 - CONCLUSION: 1. No fracture or dislocation. 2. Multilevel degenerative changes with patent central canal. Ambrocio Le Jr., MD Knee X-Ray 12/06/16 0000 Signed Impressions: Service Date/Time: Tuesday, December 06, 2016 19:28 - CONCLUSION: Knee arthroplasty. No acute abnormality. Ambrocio Le Jr., MD Hip and Pelvis X-Ray 12/06/16 0000 Signed Impressions: Service Date/Time: Tuesday, December 06, 2016 19:27 - CONCLUSION: No acute disease. Ambrocio Le Jr., MD PE at Discharge GENERAL: This is a well-nourished, well-developed patient, in no apparent distress. CARDIOVASCULAR: Normal rate and regular rhythm without murmurs RESPIRATORY: Good respiratory efforts. Breath sounds equal and clear to auscultation bilaterally. GASTROINTESTINAL: Abdomen soft, non-tender, non-distended. Normal active bowel sounds MUSCULOSKELETAL: Extremities without edema. NEURO: Awake and alert. Moves all ext x4. However generalized weakness noted. PSYCH: Appropriate mood and affect. Pt update on day of discharge pt feels fine, denies any CP/SOB/N/V drinking her ensure Per RN, pt's daughter requests that pt not be discharged on narcotics as she is concerned that they will give her too much at the [facility] Hospital Course 76 y/o female with a history of anal cancer (post chemo and radiation 05/25/16) , htn, and hyperlipidemia presented to the ED with complaints of increased weakness and pain to right knee and left hip. She is a poor historian when discussing the time line of her chemo, radiation, and names of her Doctors. She states she has been wheelchair bound for the last year, and the last week she has fallen twice out of her wheel chair when trying to transfer to the bed. Severe physical deconditioning, with hip and knee pain from falls Reviewed: hip xray and knee xray negative for fracture. Vitamin D low. B12, CPK, and TSH within normal limits. -PT eval and treat, patient needs rehab -Cont home gabapentin -Rehabilitation medicine, Dr. Chand, evaluated the patient and recommended OT/ PT, mobilize up to stretcher chair with Roho cushion, Turn and reposition every 2 hours to protect skin. f/u w Osteomalacia, Vitamin D level 11, patient with increase weakness -Vitamin D3 5000 units QD, will need recheck in 4 wks outpatient, status post 1 dose of vitamin D Elevated troponin, troponin .06-->.06-->.05, plaque, nonischemic, no chest pain -Monitor tele, and vitals Right foot drop -Multipodis boot ordered Sacral pressure ulcer, stage III -consulted woodenware assembler -Turn Q2h Questionable cdiff, patient reports had stool samples tested 3 weeks ago in outpatient lab, she does not know the results -d/c Flagyl 500mg TID -C diff here neg Chronic medical conditions Gerd, HLD, and osteoarthritis: Stable. Continue home medications Pt Condition on Discharge: Stable Discharge Disposition: Discharge to SNF Discharge Time: > 30 minutes Discharge Instructions DIET: Follow Instructions for: Heart Healthy Diet Activities you can perform: Regular-No Restrictions Follow up Referrals: PCP Follow-up - 1 Week Physical Medicine & Rehab - 2 Weeks Changed Medications: Dexamethasone (Dexamethasone) 4 Mg Tab 4 MG PO DIRECTED 1 tab BID for 5 days, then 1 tab daily for 3 days #13 Ref 0 TAB (Changed from: Q6HR; 120) Continued Medications: Atorvastatin (Atorvastatin) 40 Mg Tab 40 MG PO HS Cholesterol Management #30 Ref 0 TAB Fentanyl Patch 72 HR (Duragesic Patch 72 HR) 25 Mcg/Hr Patch 25 MCG T-DERMAL Q72H Remove old patch when new one placed. Pain Management #10 Ref 0 PATCH (This prescription has been renewed) Gabapentin (Gabapentin) 600 Mg Tab 1200 MG PO TID #90 Ref 0 TAB Multiple Vitamin (Multiple Vitamin) 1 Tab 1 TAB PO DAILY Nutritional Supplement Ref 0 TAB Omeprazole (Omeprazole) 20 Mg Tab 20 MG PO BID #30 Ref 0 TAB Pentoxifylline ER (Pentoxifylline ER) 400 Mg Tab 400 MG PO TID Intermittent claudication #90 Ref 0 TAB Rivaroxaban (Xarelto) 15 Mg Tab 15 MG PO DAILY Blood Clot Prevention Ref 0 TAB Vitamin E (E-400) 400 Unit Cap 1 TAB PO BID Discontinued Medications: Hydrocodone-Acetaminophen ([place]) 7.5-325 mg Tab 1 TAB PO Q4-6H PRN PAIN #30 Ref 0 TAB Metronidazole (Metronidazole) 500 Mg Tab 500 MG PO TID Infection Ref 0 TAB Tramadol (Tramadol) 50 Mg Tab 50 MG PO Q8HR PRN PAIN #25 Ref 0 TAB Ting Mercer MD Dec 13, 2016 13:58
[2016-12-13] MEDS: ATORVASTATIN 40 MG TAB PO SCH (20:11)
[2016-12-14] VITALS (7 sets, daily range): BP systolic 99–140; BP diastolic 59–82; PULSE 70–85; RESP 16–18; TEMP 97.3–97.9; O2SAT 94–98
[2016-12-14] MEDS: DEXAMETHASONE 4 MG TAB PO SCH ×3 (00:09→23:39)
[2016-12-14] MEDS: oxyCODONE/ACETAMINOPHEN 5 MG/325 MG TAB PO PRN ×2 (06:11→14:16)
[2016-12-14] MEDS: MULTIVITAMIN TAB PO SCH (10:29)
[2016-12-14] MEDS: CHOLECALCIFEROL (VIT D3) 5000 UNIT CAP PO SCH (10:29)
[2016-12-14] MEDS: PANTOPRAZOLE SOD 20 MG DELAYED RELEASE TAB PO SCH ×2 (10:29→20:51)
[2016-12-14] MEDS: RIVAROXABAN 15 MG TAB PO SCH (10:29)
[2016-12-14] MEDS: GABAPENTIN 400 MG CAP PO SCH ×3 (10:29→17:36)
[2016-12-14] MEDS: PENTOXIFYLLINE 400 MG CONTROLLED RELEASE TAB PO SCH ×3 (10:29→17:36)
[2016-12-14] MEDS: SODIUM CHLORIDE 0.9% FLUSH 10 ML FLUSH IV FLUSH SCH ×2 (10:30→20:51)
[2016-12-14] MEDS ORDERED: fentaNYL 25 MCG/HR PATCH T-DERMAL SCH (16:00)
--- NOTE | 2016-12-14 17:00 | HHI.PR ---
Subjective Remarks Pt currently not having any pain. However per PT notes pt is not participating in PT. I asked pt about this and she says that she get pains. Objective Vitals Vital Signs Date Time Temp Pulse Resp B/P Pulse Ox O2 Delivery O2 Flow Rate FiO2 12/14/16 12:00 97.5 77 18 123/75 95 12/14/16 08:00 97.3 83 16 99/63 98 12/14/16 04:00 97.8 70 18 100/59 94 12/14/16 00:00 97.9 77 18 116/72 95 12/13/16 20:00 97.4 82 18 95/55 93 12/13/16 20:00 87 I/O 12/13/16 12/13/16 12/13/16 12/14/16 12/14/16 12/14/16 07:00 15:00 23:00 07:00 15:00 23:00 Intake Total 120 ml 240 ml 360 ml 240 ml Output Total 150 ml 200 ml 850 ml 1200 ml Balance -30 ml 40 ml -490 ml -960 ml Intake Oral 120 ml 240 ml 360 ml 240 ml Output Urine Total 150 ml 200 ml 850 ml 1200 ml # Bowel Movements 0 0 1 1 Objective Remarks GENERAL: This is a well-nourished, well-developed patient, in no apparent distress. CARDIOVASCULAR: Normal rate and regular rhythm without murmurs RESPIRATORY: Good respiratory efforts. Breath sounds equal and clear to auscultation bilaterally. GASTROINTESTINAL: Abdomen soft, non-tender, non-distended. Normal active bowel sounds MUSCULOSKELETAL: Extremities without edema. NEURO: Awake and alert. Moves all ext x4. However generalized weakness noted. PSYCH: Appropriate mood and affect. Procedures none A/P Problem List: (1) Physical deconditioning ICD Code: R53.81 Status: Acute (2) Hip pain, left ICD Code: M25.552 Status: Acute (3) Osteomalacia ICD Code: M83.9 Status: Acute Assessment and Plan 76 y/o female with a history of anal cancer (post chemo and radiation 05/25/16) , htn, and hyperlipidemia presented to the ED with complaints of increased weakness and pain to right knee and left hip. She is a poor historian when discussing the time line of her chemo, radiation, and names of her Doctors. She states she has been wheelchair bound for the last year, and the last week she has fallen twice out of her wheel chair when trying to transfer to the bed. Severe physical deconditioning, with hip and knee pain from falls Reviewed: hip xray and knee xray negative for fracture. Vitamin D low. B12, CPK, and TSH within normal limits. -PT eval and treat, patient needs rehab -Cont home gabapentin -Rehabilitation medicine, Dr. Chand, evaluated the patient and recommended OT/ PT, mobilize up to stretcher chair with Roho cushion, Turn and reposition every 2 hours to protect skin. discussed w Daughter and she states that she doesn't want any narcotics for her mom as they make her very drowsy. I explained to her that her mother is not participating w PT because of her pain and she is getting weaker everyday she doesn't do PT. She feels that her mother will do much better with any narcotics and asks that I d/c all narcotics, she is agreeable to tylenol. Daughter also voices her concerns that her mom is not eating much. I spoke w RN and she confirms that pt only takes in about 10-20%. at this time, will hold discharge, will consult image processing engineer for a calory count and wait for their recs. Pt's insurance has denies placement as pt not participating w PT. Osteomalacia, Vitamin D level 11, patient with increase weakness -Vitamin D3 5000 units QD, will need recheck in 4 wks outpatient, status post 1 dose of vitamin D Elevated troponin, troponin .06-->.06-->.05, plaque, nonischemic, no chest pain -Monitor tele, and vitals Right foot drop -Multipodis boot ordered Sacral pressure ulcer, stage III -buyer renter following -Turn Q2h Questionable cdiff, patient reports had stool samples tested 3 weeks ago in outpatient lab, she does not know the results -d/c Flagyl 500mg TID -C diff here neg Chronic medical conditions Gerd, HLD, and osteoarthritis: Stable. Continue home medications Discharge Planning hold discharge calory count in progress I have encouraged pt to work w PT. daughter will do the same avoid narcotics per daughter's request as she feels that if pt's mentation improves when off narcotics, she will participate more in PT exercises Ting Mercer MD Dec 14, 2016 17:00
[2016-12-14] MEDS: ATORVASTATIN 40 MG TAB PO SCH (20:51)
[2016-12-15] VITALS (7 sets, daily range): BP systolic 110–136; BP diastolic 66–81; PULSE 80–96; RESP 16–20; TEMP 97.2–98.1; O2SAT 94–97
[2016-12-15] MEDS: MULTIVITAMIN TAB PO SCH (08:43)
[2016-12-15] MEDS: CHOLECALCIFEROL (VIT D3) 5000 UNIT CAP PO SCH (08:43)
[2016-12-15] MEDS: RIVAROXABAN 15 MG TAB PO SCH (08:43)
[2016-12-15] MEDS: PENTOXIFYLLINE 400 MG CONTROLLED RELEASE TAB PO SCH ×3 (08:43→17:14)
[2016-12-15] MEDS: PANTOPRAZOLE SOD 20 MG DELAYED RELEASE TAB PO SCH ×2 (08:44→21:40)
[2016-12-15] MEDS: SODIUM CHLORIDE 0.9% FLUSH 10 ML FLUSH IV FLUSH SCH ×2 (08:44→21:41)
[2016-12-15] MEDS: GABAPENTIN 400 MG CAP PO SCH ×3 (08:44→17:14)
[2016-12-15] MEDS: DEXAMETHASONE 4 MG TAB PO SCH ×2 (12:11→23:41)
[2016-12-15] MEDS: traMADol/ACETAMINOPHEN 37.5/325 1 TAB PO PRN ×2 (13:25→21:40)
--- NOTE | 2016-12-15 13:30 | HHI.PR ---
Subjective Remarks Pt complaining of excruciating pain, she had a BM and currently getting cleaned , pt asking for stronger pain meds and I did explain to her her daughter's concerns however pt tells me "she doesn't know how painful this is". denies any CP/SOB/N/V Objective Vitals Vital Signs Date Time Temp Pulse Resp B/P Pulse Ox O2 Delivery O2 Flow Rate FiO2 12/15/16 12:00 97.4 80 17 125/76 95 12/15/16 09:35 Room Air 12/15/16 08:00 97.2 84 18 136/77 95 12/15/16 04:00 98.1 81 16 127/81 95 12/15/16 00:00 Room Air 12/15/16 00:00 97.6 80 16 111/67 97 12/14/16 20:02 85 12/14/16 20:00 Room Air 12/14/16 20:00 97.4 85 17 106/61 96 12/14/16 16:00 97.7 78 18 140/82 96 I/O 12/14/16 12/14/16 12/14/16 12/15/16 12/15/16 12/15/16 07:00 15:00 23:00 07:00 15:00 23:00 Intake Total 240 ml 720 ml 240 ml 240 ml Output Total 1200 ml 1650 ml 80 ml 500 ml Balance -960 ml -930 ml 160 ml -260 ml Intake Oral 240 ml 720 ml 240 ml 240 ml Output Urine Total 1200 ml 1650 ml 80 ml 500 ml Bladder Scan Volume Amount 800 ml # Bowel Movements 1 0 1 1 Imaging Last Impressions Head CT 12/06/161821 Signed Impressions: Service Date/Time: Tuesday, December 06, 2016 19:06 - CONCLUSION: Normal examination. Ambrocio Le Jr., MD Chest X-Ray 12/06/161821 Signed Impressions: Service Date/Time: Tuesday, December 06, 2016 19:25 - CONCLUSION: No acute disease. Ambrocio Le Jr., MD Cervical Spine CT 12/06/161821 Signed Impressions: Service Date/Time: Tuesday, December 06, 2016 19:06 - CONCLUSION: 1. No fracture or dislocation. 2. Multilevel degenerative changes with patent central canal. Ambrocio Le Jr., MD Knee X-Ray 12/06/16 0000 Signed Impressions: Service Date/Time: Tuesday, December 06, 2016 19:28 - CONCLUSION: Knee arthroplasty. No acute abnormality. Ambrocio Le Jr., MD Hip and Pelvis X-Ray 12/06/16 0000 Signed Impressions: Service Date/Time: Tuesday, December 06, 2016 19:27 - CONCLUSION: No acute disease. Ambrocio Le Jr., MD Objective Remarks GENERAL: This is a well-nourished, well-developed patient, in no apparent distress. CARDIOVASCULAR: Normal rate and regular rhythm without murmurs RESPIRATORY: Good respiratory efforts. Breath sounds equal and clear to auscultation bilaterally. GASTROINTESTINAL: Abdomen soft, non-tender, non-distended. Normal active bowel sounds MUSCULOSKELETAL: Extremities without edema. pt able to use her upper extremities to hold herself when rolled to the right SKIN: stage 3 sacral decub ulcer present, some abrasions also noted around the buttocks. NEURO: Awake and alert. generalized weakness noted. PSYCH: Appropriate mood and affect. Procedures none A/P Problem List: (1) Physical deconditioning ICD Code: R53.81 Status: Acute (2) Hip pain, left ICD Code: M25.552 Status: Acute (3) Osteomalacia ICD Code: M83.9 Status: Acute Assessment and Plan 76 y/o female with a history of anal cancer (post chemo and radiation 05/25/16) , htn, and hyperlipidemia presented to the ED with complaints of increased weakness and pain to right knee and left hip. She is a poor historian when discussing the time line of her chemo, radiation, and names of her Doctors. Pt has been wheelchair bound for the last year, and the week prior to admission, she had fallen twice out of her wheel chair when trying to transfer to the bed. Severe physical deconditioning, with hip and knee pain from falls Reviewed: hip xray and knee xray negative for fracture. Vitamin D low. B12, CPK, and TSH within normal limits. -PT eval and treat, patient needs rehab however, pt unable to participate in PT due to pain. -Cont home gabapentin -Rehabilitation medicine, Dr. Chand, evaluated the patient and recommended OT/ PT, mobilize up to stretcher chair with Roho cushion, Turn and reposition every 2 hours to protect skin. discussed w Daughter yesterday and she insists that she doesn't want any narcotics for her mom as they make her very drowsy. I explained to her that her mother is not participating in PT because of her pain and she is getting weaker everyday if she doesn't do PT. She feels that her mother will do much better without any narcotics and asked that I d/c all narcotics, she is agreeable to tylenol. Daughter also voices her concerns that her mom is not eating much. I spoke w RN and she confirms that pt only takes in about 10-20%. at thay time, I held the discharge, consulted physician specialist for a calory count. Pt's insurance also denied placement because of pt not participating in PT. Today pt is in excruciating pain and tells me "she doesn't know how painful this is" referring to her daughter when I told her that she had requested that I d/c all narcotics. Pt is asking for stronger pain meds. I attempted to reach pt's daughter over the phone. Pt is legitimately in pain and at this time is requesting pain meds, I will start her on tramadol/tylenol combination q4hrs prn. I will place a palliative care consult for assistance w goals of care and recommendations for better pain control. I suspect pt will need narcotics however it is difficult as daughter is adamantly refusing because it alters her mothers mentation. Pt needs to be able to work w PT or else she will continue to decline. Osteomalacia, Vitamin D level 11, patient with increase weakness -Vitamin D3 5000 units QD, will need recheck in 4 wks outpatient, status post 1 dose of vitamin D Elevated troponin, troponin .06-->.06-->.05, plaque, nonischemic, no chest pain -Monitor tele, and vitals Right foot drop -Multipodis boot ordered Sacral pressure ulcer, stage III -field artillery basic following -Turn Q2h Questionable cdiff, patient reports had stool samples tested 3 weeks ago in outpatient lab, she does not know the results -d/c Flagyl 500mg TID -C diff here neg Chronic medical conditions Gerd, HLD, and osteoarthritis: Stable. Continue home medications Discharge Planning hold discharge calory count in progress from 12/16-12/18 w/ nutrition recs to be provided on . I have encouraged pt to work w PT. daughter will do the same Palliative care consult in place for assistance w goals of care and pain meds regimen. Pt's insurance is denying authorization for discharge to rehab/SNF as pt not participating in PT Ting Mercer MD Dec 15, 2016 13:30
--- NOTE | 2016-12-15 16:55 | PD.CONS ---
Consult Service Palliative Care Consult Requested By Dr. Mercer . Primary Care Physician Elizabeth Kaba . Reason for Consultation a. To assist with evaluation and management of symptoms including: Pain, malnutrition b. To assist medical decision maker(s) with: better understanding of current medical conditions; weighing benefits/burdens of medical treatment options; making medical treatment decisions. . HPI History of Present Illness This 76-year-old female, with a past history of anal cancer (successfully treated), DVT, and worsening pain, was admitted on 12/07/16 after falling at home and complaining of worsening right buttock/hip/leg pain. The patient had been declining slowly and having some arthritic pain in early 2015, but then was diagnosed with an anal cancer in January 2016. She underwent chemotherapy and radiation, completing radiation in mid May 2016, and completing the chemotherapy in July 2016. Follow-up evaluation and scans as indicated no recurrence of her anal cancer. However, the patient developed a mucositis, skin breakdown, and apparently sustained some sciatic nerve injury from the radiation. The patient has been nonambulatory since July 2016, and has been getting weaker. She believes she has lost a few pounds during that time. She has followed up with neurology, and EMGs have indicated the right sciatic injury/neuropathy. She has been on gabapentin, but her pain has consistently been getting worse. Over the past month, the patient has been weaker, began having more difficulty transferring to her wheelchair, and now fell a couple times prior to this admission. There were no new obvious injuries. Her appetite has diminished, and she is said to be eating only 10-20 % of meals now. She has evidence of malnutrition now with albumin 2.2. In the emergency department, findings included: * Weakness, moderate pain * Temp 98.3, pulse 96, respirations 17, blood pressure 130/81, oxygen saturation 100% on room air * White count 6.3, hemoglobin 11.6 * Sodium 136, creatinine 0.83, albumin 2.2 * CT brain negative * CT C-spine with degenerative change * Chest x-ray without acute disease During this hospitalization, the patient says her pain is constant, but worse with any movement of the leg or of her back or pelvis. Physical therapy has been visiting her, but she has not been able to participate; it is difficult to tell if that lack of participation is solely due to the pain, or if it is due to a combination of the pain, weakness, depression, fatigue, and lack of motivation. Some of this is complicated by the fact that the patient's daughter has been quite adamant about requesting that no opiates be given, as she feels the opiates have made her mother weaker and sometimes confused and therefore interfered with the patient's ability to participate in therapy. The patient now is also telling me that she does not want any opiates for the pain, has "it makes me foggy." It seems as though the patient is continuing to get weaker, and the pain seems to be getting worse. Palliative Care was consulted to assist with symptom management, particularly the pain, and to enter into discussions with the patient and her daughter regarding the current illnesses, the prognosis, and the benefits and burdens of the various treatment options. . Function/Cognitive Trajectory The patient was living independently and ambulatory until she finished her radiation and chemotherapy, and because of worsening pain has been limited to transfers to a wheelchair and being in bed since July 2016. She has been getting weaker, losing weight, and more fatigued. She is probably depressed. . Review of Systems Constitutional: COMPLAINS OF: Fatigue, Weight loss Endocrine: DENIES: Polyuria Eyes: DENIES: Eye inflammation Ears, nose, mouth, throat: DENIES: Epistaxis Respiratory: DENIES: Cough, Shortness of breath Cardiovascular: DENIES: Chest pain, Palpitations, Dyspnea on Exertion, Lower Extremity Edema Gastrointestinal: COMPLAINS OF: Constipation (occasional), DENIES: Bloody stools, Vomiting, Vomiting blood Genitourinary: DENIES: Hematuria Musculoskeletal: COMPLAINS OF: Joint pain (arthritic complaints), Back pain ( right, lower), Decreased range of motion (right leg/hip) Integumentary: DENIES: Rash Hematologic/Lymphatics: DENIES: Bruising Immunologic/Allergic: DENIES: Urticaria Neurologic: COMPLAINS OF: Paresthesias (right leg/foot), DENIES: Headache, Speech Problems Psychiatric: COMPLAINS OF: Depression, DENIES: Suicidal Ideation Past Family Social History Coded Allergies: No Known Allergies (Verified , 12/06/16) Past Medical History * General debility, fatigue/weakness/anorexia/depression/malnutrition * 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 Past Surgical History * Bilateral total knee replacement * Left hip replacement * Port * Vaginal hysterectomy . Reported Medications Tramadol (Tramadol HCl) 50 Mg Tab 50 Mg PO Q8HR PRN Metronidazole 500 Mg Tab 500 Mg PO TID Multiple Vitamin 1 Tab 1 Tab PO DAILY [place] (Hydrocodone-Acetaminophen) 7.5-325 mg Tab 1 Tab PO Q6H PRN Duragesic Patch 72 HR (Fentanyl) 25 Mcg/Hr Patch 25 Mcg T-DERMAL Q72H E-400 (Vitamin E) 400 Unit Cap 1 Tab PO BID Pentoxifylline ER (Pentoxifylline) 400 Mg Tab 400 Mg PO TID Dexamethasone 4 Mg Tab 4 Mg PO Q6HR Gabapentin 600 Mg Tab 1,200 Mg PO TID Xarelto (Rivaroxaban) 15 Mg Tab 15 Mg PO DAILY Atorvastatin (Atorvastatin Calcium) 40 Mg Tab 40 Mg PO HS Omeprazole 20 Mg Tab 20 Mg PO BID . Current Medications Medications (Trade) Dose Ordered Sig/Anette Route Start Time Stop Time Status Last Admin (NS Flush) 2 ml UNSCH PRN IV FLUSH 12/06/16 20:45 12/10/16 01:09 (NS Flush) 2 ml BID IV FLUSH 12/06/16 21:00 12/15/16 08:44 (Narcan Inj) 0.4 mg UNSCH PRN IV 12/06/16 20:45 (Lipitor) 40 mg HS PO 12/07/16 21:00 12/14/16 20:51 (Neurontin) 1,200 mg TID PO 12/07/16 13:00 12/15/16 12:11 (TRENtal SR) 400 mg TID PO 12/07/16 13:00 12/15/16 12:11 (Xarelto) 15 mg DAILY PO 12/07/16 12:00 12/15/16 08:43 (Theragran) 1 tab DAILY PO 12/07/16 12:00 12/15/16 08:43 (Protonix) 20 mg BID PO 12/07/16 12:00 12/15/16 08:44 (Vitamin D3) 5,000 units DAILY PO 12/08/16 09:00 12/15/16 08:43 (Decadron) 4 mg Q12H PO 12/11/16 00:00 12/15/16 12:11 Miscellaneous Information 1 Q3D T-DERMAL 12/17/16 16:00 (Tylenol) 650 mg Q6H PRN PO 12/14/16 18:00 (Ultracet 37.5-325 Mg) 1 tab Q4H PRN PO 12/15/16 13:00 12/15/16 13:25 Family History Patient denies any family medical history including cardiac disease and cancer. Both of her parents in their 90s of "old age." . Substance Use Tobacco: She smoked for less than 5 years many years ago. Alcohol: None Prescription med abuse: None Illicits: None . Psychosocial History The patient was born and raised in [place], [place], and moved to [place] about 18 years ago. She has lived alone, even after she was limited to bed and wheelchair, and her daughter lives nearby and helps her multiple times per day. 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 She was for 27 years, about 17 years ago. She has 2 daughters, Merna lives near her, and her other daughter lives in another state. . Spiritual/Cultural Factors The patient has a Yarsani background, and her spirituality has been important for her. She has appreciated speech pathologist visits. . Living Will: Never completed Health Care Surrogate: Completed, but not made available Durable Power of Executive Office Manager: Never completed Health Care Surrogate(s): Daughter Merna . Today's verbally stated goals: The patient and her daughter do want to continue aggressive care at this time. However, they both do realize that the patient has been on a fairly steady decline, and if this does not turn around in the upcoming weeks, the patient is likely to develop other complications that will lead to further debility and/or . Merna would be open to hospice assistance if this decline does in fact continue. . Family/friends goals: As above . Ethical and Legal Issues There are no ethical issues that would impact her care or decision-making at this time. The patient has capacity for decision-making; she has designated her daughter Merna as healthcare surrogate. . Physical Exam Vital Signs Date Time Temp Pulse Resp B/P Pulse Ox O2 Delivery O2 Flow Rate FiO2 12/15/16 12:00 97.4 80 17 125/76 95 12/15/16 09:35 Room Air 12/15/16 08:00 97.2 84 18 136/77 95 12/15/16 04:00 98.1 81 16 127/81 95 12/15/16 00:00 Room Air 12/15/16 00:00 97.6 80 16 111/67 97 12/14/16 20:02 85 12/14/16 20:00 Room Air 12/14/16 20:00 97.4 85 17 106/61 96 12/14/16 16:00 97.7 78 18 140/82 96 12/14/16 12/15/16 19:00 07:00 Intake Total 720 ml 480 ml Output Total 1650 ml 580 ml Balance -930 ml -100 ml Intake Oral 720 ml 480 ml Output Urine Total 1650 ml 580 ml Bladder Scan Volume Amount 800 ml # Bowel Movements 0 2 Exam CONSTITUTIONAL/GENERAL: This is an elderly, weak, depressed-appearing patient, in no apparent distress. TUBES/LINES/DRAINS: heel protection boots SKIN: No jaundice. Abrasion right knee.. Skin temperature appropriate. Not diaphoretic. HEAD: Atraumatic. Normocephalic. EYES: Pupils equal and round and reactive. Extraocular motions intact. No scleral icterus. No injection or drainage. Fundi not examined. ENT: Hearing grossly normal. Nose without bleeding or purulent drainage. Throat without visible erythema, exudates, masses, or lesions. NECK: Trachea midline. Supple, nontender. No palpable thyroid enlargement or nodularity. CARDIOVASCULAR: Regular rate and rhythm without murmurs, gallops, or rubs. No JVD. Peripheral pulses symmetric. RESPIRATORY/CHEST: Symmetric, unlabored respirations. Clear to auscultation. Breath sounds equal bilaterally. No wheezes, rales, or rhonchi. GASTROINTESTINAL: Abdomen soft, non-tender, nondistended. No hepato-splenomegaly , or palpable masses. No guarding. Bowel sounds present. GENITOURINARY: Without palpable bladder distension. MUSCULOSKELETAL: Extremities without clubbing, cyanosis, or edema. Moderate pain with any movement of the right foot/leg. No calf tenderness. No mottling or clubbing. LYMPHATICS: No palpable cervical or supraclavicular adenopathy. NEUROLOGICAL: Awake and alert. Motor and sensory grossly within normal limits. Follows commands. Cognitively sharp. Moves all extremities. PSYCHIATRIC: No obvious anxiety, but does appear depressed, perhaps with psychomotor retardation. No apparent hallucinations or other psychotic thought process. . Diagnostic Tests Laboratory Laboratory Tests Test 12/11/16 11:20 Stool C. difficile Toxin (PCR) NEGATIVE Stl C. difficile Toxin PRESUMPTIVE Epiderm 027 NEGATIVE Imaging Last Impressions Head CT 12/06/161821 Signed Impressions: Service Date/Time: Tuesday, December 06, 2016 19:06 - CONCLUSION: Normal examination. Ambrocio Le Jr., MD Chest X-Ray 12/06/161821 Signed Impressions: Service Date/Time: Tuesday, December 06, 2016 19:25 - CONCLUSION: No acute disease. Ambrocio Le Jr., MD Cervical Spine CT 12/06/161821 Signed Impressions: Service Date/Time: Tuesday, December 06, 2016 19:06 - CONCLUSION: 1. No fracture or dislocation. 2. Multilevel degenerative changes with patent central canal. Ambrocio Le Jr., MD Knee X-Ray 12/06/16 0000 Signed Impressions: Service Date/Time: Tuesday, December 06, 2016 19:28 - CONCLUSION: Knee arthroplasty. No acute abnormality. Ambrocio Le Jr., MD Hip and Pelvis X-Ray 12/06/16 0000 Signed Impressions: Service Date/Time: Tuesday, December 06, 2016 19:27 - CONCLUSION: No acute disease. Ambrocio Le Jr., MD Patient/Family Conference Present at Family Conference: Bonnie Bauman via telephone . Family Conference Time (mins): 33 Family Conference Location: Bedside, Telephone Issues Discussed: * Palliative care role, purpose, approach * Hospice care role, purpose, approach * Additional medical, psychosocial, and spiritual history * Patients general health, functional status, and cognitive changes in the months leading up to the current hospitalization * Patient/family understanding of the current medical problems * Patient/family understanding of prognosis * Patients goals of care as best understood from advance directives and/or conversations and/or values * Current medical treatment options and benefits/burdens of those options * Likely scenarios comparing ongoing aggressive care with a transition to comfort measures only * Questions answered to the best of my ability * Palliative care contact information provided The patient and her daughter do want to continue aggressive care at this time. However, they both do realize that the patient has been on a fairly steady decline, and if this does not turn around in the upcoming weeks, the patient is likely to develop other complications that will lead to further debility and/or . Merna would be open to hospice assistance if this decline does in fact continue. . Assessment and Plan Disease Oriented Problem List: (1) general debility: Fatigue/weakness/anorexia/depression/malnutrition (2) 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 (3) anal cancer January 2016, status post chemotherapy and radiation (4) skin ulcerations/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 Comment: Perianal and presacral (5) depression (6) GERD (7) hyperlipidemia (8) history of DVT right leg (9) hypertension (10) history of nephrolithiasis Symptom Scale: (1) pain 0-10 Scale: 5 (primarily due to the sciatic nerve injury) Comment: Primarily back/buttock/right leg sciatic nerve pain (2) depression 0-10 Scale: 5 (no doubt worsened by the chronic pain and bedbound status) (3) anorexia 0-10 Scale: 5 (exacerbated by pain, fatigue, depression) Pertinent Non-Medical Issues Psychosocial: , was living alone, 2 daughters Spiritual: The patient has a Yarsani background, and her spirituality has been important for her. She has appreciated speech pathologist visits. Legal: The patient has capacity for decision-making; she has designated her daughter Merna as healthcare surrogate. Ethical issues impacting care: None . Important Contacts Daughter: Merna [phone] . Prognosis This patient has been on a fairly steady decline over the past several months, and that seems to be continuing. She has now become bedbound, has ongoing chronic pain, debility, fatigue, and anorexia, probably all made somewhat worse by her apparent depression and lack of motivation. If this continues, other complications will occur, and this decline will lead to the patient's . At some point in the upcoming weeks or months, she will likely be appropriate for hospice services. . Code Status: Full Code Plan * FULL CODE * DECISION-MAKING: The patient has capacity for decision-making; she has designated her daughter Merna as healthcare surrogate. * GOALS: The patient and her daughter do want to continue aggressive care at this time. However, they both do realize that the patient has been on a fairly steady decline, and if this does not turn around in the upcoming weeks, the patient is likely to develop other complications that will lead to further debility and/or . Merna would be open to hospice assistance if this decline does in fact continue. * SYMPTOMS: == Pain: Her primary pain syndrome seems to be neuropathic from the ( apparently radiation-induced) sciatic nerve injury; she has been on gabapentin and steroids, but the pain continues to worsen, and the patient and her daughter are both reluctant for another trial of opiates because of the effects on the patient's mental clarity. It would be useful to hear what additional measures the neurologists believe would be useful to treat this pain. == Anorexia: The patient's appetite continues to worsen, and is likely due to a combination of malaise, fatigue, chronic pain, and depression. She has already been on daily Decadron, but it may be worth trying some Megace also. There is a calorie count currently underway. == Depression: Certainly much of the patient's depression is situational, but no doubt it has been worsened by her chronic pain syndrome and general debility. It may be worthwhile trying an antidepressant, or even an antidepressant plus some low-dose daytime Ritalin, perhaps 2.5 mg q a.m. and again at noon for a couple weeks in an attempt to improve the patient's mood, state of mind, motivation....while hoping that the antidepressant will then become helpful. * Palliative Care will continue to follow the patient during this hospitalization. . Time Spent Total Floor Time (mins): 79 Face to Face Time (mins): 40 >50% Counseling/Coord of Care: Yes (d/w Dr. Mercer) Thank you for the opportunity to participate in the care of Ms. Roque. Attestation To help prompt me to consider important information that might be impacting today's encounter and assessment, information from prior notes written by myself or my colleagues may have been "brought forward" into today's note. My signature on this note, however, is an attestation that I personally performed the exam, history, and/or decision-making noted today, and, unless otherwise indicated, the interactions with patient, family, and staff as well as the review of records all occurred today. I also attest that the listed assessment and stated plan reflect my best clinical judgment today based on the combination of historical information, prior notes, and today's exam/ interactions. When time spent is documented, it refers only to time spent today by the signer, or if indicated, combined time spent today by collaborating physician/nurse practitioner. Sue Moore MD Dec 15, 2016 16:55
[2016-12-15] MEDS: ATORVASTATIN 40 MG TAB PO SCH (21:40)
[2016-12-16] VITALS (8 sets, daily range): BP systolic 104–135; BP diastolic 55–74; PULSE 70–90; RESP 16–20; TEMP 97.4–98.1; O2SAT 96–99
[2016-12-16] MEDS: traMADol/ACETAMINOPHEN 37.5/325 1 TAB PO PRN ×4 (02:11→22:27)
[2016-12-16] MEDS: GABAPENTIN 400 MG CAP PO SCH ×3 (08:28→17:30)
[2016-12-16] MEDS: SODIUM CHLORIDE 0.9% FLUSH 10 ML FLUSH IV FLUSH SCH ×2 (08:28→20:38)
[2016-12-16] MEDS: RIVAROXABAN 15 MG TAB PO SCH (08:28)
[2016-12-16] MEDS: MULTIVITAMIN TAB PO SCH (08:28)
[2016-12-16] MEDS: PANTOPRAZOLE SOD 20 MG DELAYED RELEASE TAB PO SCH ×2 (08:28→20:37)
[2016-12-16] MEDS: CHOLECALCIFEROL (VIT D3) 5000 UNIT CAP PO SCH (08:28)
[2016-12-16] MEDS: PENTOXIFYLLINE 400 MG CONTROLLED RELEASE TAB PO SCH ×3 (08:32→17:30)
[2016-12-16] MEDS: DEXAMETHASONE 4 MG TAB PO SCH (12:02)
--- NOTE | 2016-12-16 16:32 | HHI.PR ---
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 followed in her bedroom and discussed with nurse Miss Ramos she is awaiting for final recommendations by coding support specialist, no complaint at this time. Objective Vital Signs Date Time Temp Pulse Resp B/P Pulse Ox O2 Delivery O2 Flow Rate FiO2 12/16/16 16:00 Room Air 12/16/16 12:00 97.8 90 20 105/61 96 12/16/16 12:00 Room Air 12/16/16 08:05 70 12/16/16 08:00 97.4 77 20 135/74 96 12/16/16 08:00 Room Air 12/16/16 04:00 97.4 77 20 104/69 98 12/16/16 00:00 98.1 89 20 122/73 96 12/16/16 00:00 98.1 89 20 122/73 96 12/15/16 21:00 96 12/15/16 20:00 97.6 96 20 129/66 94 I/O 12/15/16 12/15/16 12/15/16 12/16/16 12/16/16 12/16/16 07:00 15:00 23:00 07:00 15:00 23:00 Intake Total 240 ml 480 ml 360 ml 0 ml Output Total 500 ml 400 ml 150 ml Balance -260 ml 80 ml 210 ml 0 ml Intake Oral 240 ml 480 ml 360 ml IV Total 0 ml Output Urine Total 500 ml 400 ml 150 ml # Bowel Movements 1 2 Imaging Last Impressions Head CT 12/06/161821 Signed Impressions: Service Date/Time: Tuesday, December 06, 2016 19:06 - CONCLUSION: Normal examination. Ambrocio Le Jr., MD Chest X-Ray 12/06/161821 Signed Impressions: Service Date/Time: Tuesday, December 06, 2016 19:25 - CONCLUSION: No acute disease. Ambrocio Le Jr., MD Cervical Spine CT 12/06/161821 Signed Impressions: Service Date/Time: Tuesday, December 06, 2016 19:06 - CONCLUSION: 1. No fracture or dislocation. 2. Multilevel degenerative changes with patent central canal. Ambrocio Le Jr., MD Knee X-Ray 12/06/16 0000 Signed Impressions: Service Date/Time: Tuesday, December 06, 2016 19:28 - CONCLUSION: Knee arthroplasty. No acute abnormality. Ambrocio Le Jr., MD Hip and Pelvis X-Ray 12/06/16 0000 Signed Impressions: Service Date/Time: Tuesday, December 06, 2016 19:27 - CONCLUSION: No acute disease. Ambrocio Le Jr., MD Procedures No procedures. Other Results No new laboratory Objective Remarks GENERAL: This is a well-nourished, well-developed patient, in no apparent distress. CARDIOVASCULAR: Normal rate and regular rhythm without murmurs RESPIRATORY: Good respiratory efforts. Breath sounds equal and clear to auscultation bilaterally. GASTROINTESTINAL: Abdomen soft, non-tender, non-distended. Normal active bowel sounds MUSCULOSKELETAL: Extremities without edema. pt able to use her upper extremities to hold herself when rolled to the right SKIN: stage 3 sacral decub ulcer present, some abrasions also noted around the buttocks. NEURO: Awake and alert. generalized weakness noted. PSYCH: Appropriate mood and affect. Medications and IVs Current Medications Medications (Trade) Dose Ordered Sig/Anette Route Start Time Stop Time Status Last Admin (NS Flush) 2 ml UNSCH PRN IV FLUSH 12/06/16 20:45 12/10/16 01:09 (NS Flush) 2 ml BID IV FLUSH 12/06/16 21:00 12/16/16 08:28 (Narcan Inj) 0.4 mg UNSCH PRN IV 12/06/16 20:45 (Lipitor) 40 mg HS PO 12/07/16 21:00 12/15/16 21:40 (Neurontin) 1,200 mg TID PO 12/07/16 13:00 12/16/16 12:03 (TRENtal SR) 400 mg TID PO 12/07/16 13:00 12/16/16 12:03 (Xarelto) 15 mg DAILY PO 12/07/16 12:00 12/16/16 08:28 (Theragran) 1 tab DAILY PO 12/07/16 12:00 12/16/16 08:28 (Protonix) 20 mg BID PO 12/07/16 12:00 12/16/16 08:28 (Vitamin D3) 5,000 units DAILY PO 12/08/16 09:00 12/16/16 08:28 (Decadron) 4 mg Q12H PO 12/11/16 00:00 12/16/16 12:02 Miscellaneous Information 1 Q3D T-DERMAL 12/17/16 16:00 (Tylenol) 650 mg Q6H PRN PO 12/14/16 18:00 (Ultracet 37.5-325 Mg) 1 tab Q4H PRN PO 12/15/16 13:00 12/16/16 12:02 A/P Assessment and Plan 1. Severe physical deconditioning, with hip and knee pain from falls Reviewed: hip xray and knee xray negative for fracture. Vitamin D low. B12 , CPK, and TSH within normal limits. -PT eval and treat, patient needs rehab however, pt unable to participate in PT due to pain. -Cont home gabapentin -Rehabilitation medicine, Dr. Chand, evaluated the patient and recommended OT/ PT, mobilize up to stretcher chair with Roho cushion, Turn and reposition every 2 hours to protect skin. as per her Daughter do not want Narcotics for her Mother. 2. Osteomalacia, Vitamin D level 11, patient with increase weakness -Vitamin D3 5000 units QD, will need recheck in 4 wks outpatient, status post 1 dose of vitamin D 3. Elevated troponin, troponin .06-->.06-->.05, plaque, nonischemic, no chest pain -Monitor tele, and vitals 4. Right foot drop -Multipodis boot ordered 5. Sacral pressure ulcer, stage III -loan funder following -Turn Q2h 6. Questionable cdiff, patient reports had stool samples tested 3 weeks ago in outpatient lab, she does not know the results -d/c Flagyl 500mg TID -C diff here neg Chronic medical conditions Gerd, HLD, and osteoarthritis: Stable. Continue home medications as per coding support specialist patient and her Daughter wants full aggressive management. Discharge Planning Discharged was Held yesterday calory count in progress from 12/16-12/18 w/ nutrition recs to be provided on . I have encouraged pt to work w PT. daughter will do the same Palliative care consult in place for assistance w goals of care and pain meds regimen. Pt's insurance is denying authorization for discharge to rehab/SNF as pt not participating in PT Dylan Cassidy MD Dec 16, 2016 16:32
[2016-12-16] MEDS: ATORVASTATIN 40 MG TAB PO SCH (20:37)
[2016-12-17] VITALS (7 sets, daily range): BP systolic 99–129; BP diastolic 58–75; PULSE 76–83; RESP 16–18; TEMP 97.5–98.3; O2SAT 94–97
[2016-12-17] MEDS: DEXAMETHASONE 4 MG TAB PO SCH ×3 (00:51→23:07)
[2016-12-17] MEDS: traMADol/ACETAMINOPHEN 37.5/325 1 TAB PO PRN ×5 (05:31→23:07)
[2016-12-17] MEDS: PENTOXIFYLLINE 400 MG CONTROLLED RELEASE TAB PO SCH ×3 (08:51→18:23)
[2016-12-17] MEDS: MULTIVITAMIN TAB PO SCH (08:51)
[2016-12-17] MEDS: CHOLECALCIFEROL (VIT D3) 5000 UNIT CAP PO SCH (08:51)
[2016-12-17] MEDS: RIVAROXABAN 15 MG TAB PO SCH (08:51)
[2016-12-17] MEDS: GABAPENTIN 400 MG CAP PO SCH ×3 (08:51→18:00)
[2016-12-17] MEDS: PANTOPRAZOLE SOD 20 MG DELAYED RELEASE TAB PO SCH ×2 (08:51→20:35)
[2016-12-17] MEDS: SODIUM CHLORIDE 0.9% FLUSH 10 ML FLUSH IV FLUSH SCH ×2 (08:52→20:36)
--- NOTE | 2016-12-17 13:52 | HHI.PR ---
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 followed in her bedroom and discussed with nurse Miss Ramos she is awaiting for final recommendations by supplier specialist, no complaint at this time. 12/17/16: Seen in her bedroom as per Palliative care notes, the patient and her Daughter wants to continue with Aggressive Care, at this time patient with no complaint, she has no Nausea, vomit or diarrhea, will remove Fry cath and give her some IV fluids, also her mouth has increased white tissue related to Oral thrush. Objective Vital Signs Date Time Temp Pulse Resp B/P Pulse Ox O2 Delivery O2 Flow Rate FiO2 12/17/16 12:04 76 12/17/16 08:00 96 Room Air 12/17/16 08:00 98.0 80 18 129/75 96 12/17/16 04:00 98.1 82 18 111/67 97 12/17/16 00:00 98.0 83 16 108/67 96 12/17/16 00:00 Room Air 12/16/16 20:45 84 12/16/16 20:00 97.8 75 16 127/68 99 12/16/16 19:45 Room Air 12/16/16 16:00 98.0 80 20 104/55 96 12/16/16 16:00 Room Air I/O 12/16/16 12/16/16 12/16/16 12/17/16 12/17/16 12/17/16 07:00 15:00 23:00 07:00 15:00 23:00 Intake Total 0 ml 200 ml 100 ml Output Total 550 ml 750 ml Balance 0 ml -350 ml -650 ml Intake Oral 200 ml 100 ml IV Total 0 ml Output Urine Total 550 ml 750 ml # Bowel Movements 2 1 Imaging Last Impressions Head CT 12/06/161821 Signed Impressions: Service Date/Time: Tuesday, December 06, 2016 19:06 - CONCLUSION: Normal examination. Ambrocio Le Jr., MD Chest X-Ray 12/06/161821 Signed Impressions: Service Date/Time: Tuesday, December 06, 2016 19:25 - CONCLUSION: No acute disease. Ambrocio Le Jr., MD Cervical Spine CT 12/06/16 1822 Signed Impressions: Service Date/Time: Tuesday, December 06, 2016 19:06 - CONCLUSION: 1. No fracture or dislocation. 2. Multilevel degenerative changes with patent central canal. Ambrocio Le Jr., MD Knee X-Ray 12/06/16 0000 Signed Impressions: Service Date/Time: Tuesday, December 06, 2016 19:28 - CONCLUSION: Knee arthroplasty. No acute abnormality. Ambrocio Le Jr., MD Hip and Pelvis X-Ray 12/06/16 0000 Signed Impressions: Service Date/Time: Tuesday, December 06, 2016 19:27 - CONCLUSION: No acute disease. Ambrocio Le Jr., MD Procedures No procedures. Other Results No new laboratory Objective Remarks GENERAL: This is a well-nourished, well-developed patient, in no apparent distress. CARDIOVASCULAR: Normal rate and regular rhythm without murmurs RESPIRATORY: Good respiratory efforts. Breath sounds equal and clear to auscultation bilaterally. GASTROINTESTINAL: Abdomen soft, non-tender, non-distended. Normal active bowel sounds MUSCULOSKELETAL: Extremities without edema. pt able to use her upper extremities to hold herself when rolled to the right SKIN: stage 3 sacral decub ulcer present, some abrasions also noted around the buttocks. NEURO: Awake and alert. generalized weakness noted. PSYCH: Appropriate mood and affect. Medications and IVs Current Medications Medications (Trade) Dose Ordered Sig/Anette Route Start Time Stop Time Status Last Admin (NS Flush) 2 ml UNSCH PRN IV FLUSH 12/06/16 20:45 12/10/16 01:09 (NS Flush) 2 ml BID IV FLUSH 12/06/16 21:00 12/17/16 08:52 (Narcan Inj) 0.4 mg UNSCH PRN IV 12/06/16 20:45 (Lipitor) 40 mg HS PO 12/07/16 21:00 12/16/16 20:37 (Neurontin) 1,200 mg TID PO 12/07/16 13:00 12/17/16 13:32 (TRENtal SR) 400 mg TID PO 12/07/16 13:00 12/17/16 13:32 (Xarelto) 15 mg DAILY PO 12/07/16 12:00 12/17/16 08:51 (Theragran) 1 tab DAILY PO 12/07/16 12:00 12/17/16 08:51 (Protonix) 20 mg BID PO 12/07/16 12:00 12/17/16 08:51 (Vitamin D3) 5,000 units DAILY PO 12/08/16 09:00 12/17/16 08:51 (Decadron) 4 mg Q12H PO 12/11/16 00:00 12/17/16 13:36 Miscellaneous Information 1 Q3D T-DERMAL 12/17/16 16:00 (Tylenol) 650 mg Q6H PRN PO 12/14/16 18:00 (Ultracet 37.5-325 Mg) 1 tab Q4H PRN PO 12/15/16 13:00 12/17/16 13:32 A/P Assessment and Plan 1. Severe physical deconditioning, with hip and knee pain from falls Reviewed: hip xray and knee x ray negative for fracture. Vitamin D low. B12, CPK, and TSH within normal limits. -PT eval and treat, patient needs rehab however, pt unable to participate in PT due to pain. -Cont home gabapentin -Rehabilitation medicine, Dr. Chand, evaluated the patient and recommended OT/ PT, mobilize up to stretcher chair with Roho cushion, Turn and reposition every 2 hours to protect skin. as per her Daughter do not want Narcotics for her Mother. 2. Osteomalacia, Vitamin D level 11, patient with increase weakness -Vitamin D3 5000 units QD, will need recheck in 4 wks outpatient, status post 1 dose of vitamin D 3. Elevated troponin, troponin .06-->.06-->.05, plaque, nonischemic, no chest pain -Monitor tele, and vitals 4. Right foot drop -Multipodis boot ordered 5. Sacral pressure ulcer, stage III -clinical account executive following -Turn Q2h 6. Questionable cdiff, patient reports had stool samples tested 3 weeks ago in outpatient lab, she does not know the results -d/c Flagyl 500mg TID -C diff here neg Chronic medical conditions Gerd, HLD, and osteoarthritis: Stable. Continue home medications as per supplier specialist patient and her Daughter wants full aggressive management. contniue Caloric Count. Discharge Planning Discharged was Held 12/14/16 calory count in progress from 12/16-12/18 w/ nutrition recs to be provided on . I have encouraged pt to work w PT. daughter will do the same Palliative care consult in place for assistance w goals of care and pain meds regimen. Pt's insurance is denying authorization for discharge to rehab/SNF as pt not participating in PT Dylan Cassidy MD Dec 17, 2016 13:52
[2016-12-17] MEDS: SODIUM CHLOR 0.9% 1000 ML INJ 1,000 ML IV SCH (14:15)
[2016-12-17] MEDS: NYSTATIN SUSP 500,000 U/5 ML CUP SWISH-SWAL SCH ×2 (17:36→20:35)
[2016-12-17] MEDS: ATORVASTATIN 40 MG TAB PO SCH (20:35)
[2016-12-18] VITALS (8 sets, daily range): BP systolic 98–131; BP diastolic 52–78; PULSE 75–99; RESP 16–20; TEMP 97.4–98.5; O2SAT 85–97
[2016-12-18] MEDS: SODIUM CHLOR 0.9% 1000 ML INJ 1,000 ML IV SCH ×2 (02:02→15:40)
[2016-12-18] MEDS: traMADol/ACETAMINOPHEN 37.5/325 1 TAB PO PRN ×2 (05:51→10:20)
[2016-12-18 07:00] LABS: AUTOMATED NEUTROPHIL # 3.4 TH/MM3 (1.8-7.7); BASOPHIL % 0.1 % (0.0-2.0); HEMATOCRIT 26.3 % (35.0-46.0); LYMPHOCYTE # 0.4 TH/MM3 (1.0-4.8); MEAN CELL VOLUME 88.7 FL (80.0-100.0); MEAN CORPUSCULAR HEMOGLOBIN 31.4 PG (27.0-34.0); MEAN CORPUSCULAR HGB CONC 35.4 % (32.0-36.0); MONO % 2.9 % (0.0-8.0); PLATELET COUNT 91 TH/MM3 (150-450); RED BLOOD COUNT 2.96 MIL/MM3 (4.00-5.30); RED CELL DISTRIBUTION WIDTH 17.9 % (11.6-17.2)
[2016-12-18 07:02] LABS: HEMO FLAGS AUTO DIFF
[2016-12-18 07:21] LABS: BICARBONATE 21.2 MEQ/L (21.0-32.0); POTASSIUM 3.3 MEQ/L (3.5-5.1)
[2016-12-18 07:32] LABS: CALCIUM-PROTEIN CORRECTED 8.4 MG/DL (8.5-10.1)
[2016-12-18 08:20] LABS: PLATELET ESTIMATE SMEAR LOW (NORMAL); PLATELET MORPHOLOGY NORMAL (NORMAL); SCAN/DIFF AUTO DIFF CONFIRMED
--- NOTE | 2016-12-18 08:32 | HHI.PR ---
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 followed in her bedroom and discussed with nurse Miss Ramos she is awaiting for final recommendations by icu specialist, no complaint at this time. 12/17/16: Seen in her bedroom as per Palliative care notes, the patient and her Daughter wants to continue with Aggressive Care, Removed Fry cath, started management for Oral Thrush but the patient refuse the Nystatin. 12/18: Stable in her bedroom she will finish her Calory count tomorrow, discussed with nurse Miss Rosales and no nausea, vomit or diarrhea discussed with [employer]ling [employer] Operator, will be ready for discharge tomorrow morning. but the patient do not want to participate in Rehabilitation. Objective Vital Signs Date Time Temp Pulse Resp B/P Pulse Ox O2 Delivery O2 Flow Rate FiO2 12/18/16 04:00 98.1 80 18 122/78 95 12/18/16 00:00 98.0 78 16 115/75 96 12/18/16 00:00 Room Air 12/17/16 20:15 Room Air 12/17/16 20:00 98.3 81 18 99/58 96 12/17/16 20:00 80 12/17/16 16:00 98.1 77 18 109/64 94 12/17/16 12:04 76 12/17/16 12:00 97.5 82 18 118/73 95 I/O 12/17/16 12/17/16 12/17/16 12/18/16 12/18/16 12/18/16 07:00 15:00 23:00 07:00 15:00 23:00 Intake Total 100 ml 600 ml 912 ml 792 ml Output Total 750 ml 475 ml Balance -650 ml 125 ml 912 ml 792 ml Intake Oral 100 ml 600 ml 240 ml 120 ml IV Total 672 ml 672 ml Output Urine Total 750 ml 475 ml # Voids 3 4 # Bowel Movements 1 1 1 Result Diagram: 12/18/16 0630 12/18/16 0630 Imaging Last Impressions Head CT 5/31/17 1822 Signed Impressions: Service Date/Time: Tuesday, December 06, 2016 19:06 - CONCLUSION: Normal examination. Ambrocio Le Jr., MD Chest X-Ray 12/06/161821 Signed Impressions: Service Date/Time: Tuesday, December 06, 2016 19:25 - CONCLUSION: No acute disease. Ambrocio Le Jr., MD Cervical Spine CT 12/06/161821 Signed Impressions: Service Date/Time: Tuesday, December 06, 2016 19:06 - CONCLUSION: 1. No fracture or dislocation. 2. Multilevel degenerative changes with patent central canal. Ambrocio Le Jr., MD Knee X-Ray 12/06/16 0000 Signed Impressions: Service Date/Time: Tuesday, December 06, 2016 19:28 - CONCLUSION: Knee arthroplasty. No acute abnormality. Ambrocio Le Jr., MD Hip and Pelvis X-Ray 12/06/16 0000 Signed Impressions: Service Date/Time: Tuesday, December 06, 2016 19:27 - CONCLUSION: No acute disease. Ambrocio Le Jr., MD Procedures No procedures. Other Results Laboratory Tests Test 12/18/16 06:30 White Blood Count 4.0 TH/MM3 Red Blood Count 2.96 MIL/MM3 Hemoglobin 9.3 GM/DL Hematocrit 26.3 % Mean Corpuscular Volume 88.7 FL Mean Corpuscular Hemoglobin 31.4 PG Mean Corpuscular Hemoglobin 35.4 % Concent Red Cell Distribution Width 17.9 % Platelet Count 91 TH/MM3 Mean Platelet Volume 6.9 FL Neutrophils (%) (Auto) 86.0 % Lymphocytes (%) (Auto) 11.0 % Monocytes (%) (Auto) 2.9 % Eosinophils (%) (Auto) 0.0 % Basophils (%) (Auto) 0.1 % Neutrophils # (Auto) 3.4 TH/MM3 Lymphocytes # (Auto) 0.4 TH/MM3 Monocytes # (Auto) 0.1 TH/MM3 Eosinophils # (Auto) 0.0 TH/MM3 Basophils # (Auto) 0.0 TH/MM3 CBC Comment AUTO DIFF Differential Comment AUTO DIFF CONFIRMED Platelet Estimate LOW Platelet Morphology Comment NORMAL Sodium Level 142 MEQ/L Potassium Level 3.3 MEQ/L Chloride Level 112 MEQ/L Carbon Dioxide Level 21.2 MEQ/L Anion Gap 9 MEQ/L Blood Urea Nitrogen 18 MG/DL Creatinine 0.21 MG/DL Estimat Glomerular Filtration 327 ML/MIN Rate Random Glucose 81 MG/DL Calcium Level 6.7 MG/DL Protein Corrected Calcium 8.4 MG/DL Phosphorus Level 2.2 MG/DL Total Protein 3.9 GM/DL Objective Remarks GENERAL: Well-developed patient, in no apparent distress. CARDIOVASCULAR: Normal rate and regular rhythm without murmurs RESPIRATORY: Good respiratory efforts. Breath sounds equal and clear to auscultation bilaterally. GASTROINTESTINAL: Abdomen soft, non-tender, non-distended. Normal active bowel sounds MUSCULOSKELETAL: Extremities without edema. pt able to use her upper extremities to hold herself when rolled to the right SKIN: stage 3 sacral decub ulcer present, some abrasions also noted around the buttocks. NEURO: Awake and alert. generalized weakness noted. PSYCH: Appropriate mood and affect. Medications and IVs Current Medications Medications (Trade) Dose Ordered Sig/Anette Route Start Time Stop Time Status Last Admin (NS Flush) 2 ml UNSCH PRN IV FLUSH 12/06/16 20:45 12/10/16 01:09 (NS Flush) 2 ml BID IV FLUSH 12/06/16 21:00 12/17/16 20:36 (Narcan Inj) 0.4 mg UNSCH PRN IV 12/06/16 20:45 (Lipitor) 40 mg HS PO 12/07/16 21:00 12/17/16 20:35 (Neurontin) 1,200 mg TID PO 12/07/16 13:00 12/17/16 18:00 (TRENtal SR) 400 mg TID PO 12/07/16 13:00 12/17/16 18:23 (Xarelto) 15 mg DAILY PO 12/07/16 12:00 12/17/16 08:51 (Theragran) 1 tab DAILY PO 12/07/16 12:00 12/17/16 08:51 (Protonix) 20 mg BID PO 12/07/16 12:00 12/17/16 20:35 (Vitamin D3) 5,000 units DAILY PO 12/08/16 09:00 12/17/16 08:51 (Decadron) 4 mg Q12H PO 12/11/16 00:00 12/17/16 23:07 Miscellaneous Information 1 Q3D T-DERMAL 12/17/16 16:00 (Tylenol) 650 mg Q6H PRN PO 12/14/16 18:00 Tramadol/ Acetaminophen 1 tab 1 tab Q4H PRN PO 12/15/16 13:00 12/18/16 05:51 (NS 1000 ml Inj) 1,000 ml @ 84 mls/hr [id number] IV 12/17/16 14:15 12/18/16 02:02 (Mycostatin Liq) 5 ml QID SWISH-SWAL 12/17/16 18:00 12/17/16 20:35 A/P Assessment and Plan 1. Severe physical deconditioning, with hip and knee pain from falls Reviewed: hip xray and knee x ray negative for fracture. Vitamin D low. B12, CPK, and TSH within normal limits. -PT eval and treat, patient needs rehab however, pt unable to participate in PT due to pain. -Cont home gabapentin -Rehabilitation medicine, Dr. Chand, evaluated the patient and recommended OT/ PT, mobilize up to stretcher chair with Roho cushion, Turn and reposition every 2 hours to protect skin. as per her Daughter do not want Narcotics for her Mother. 2. Osteomalacia, Vitamin D level 11, patient with increase weakness -Vitamin D3 5000 units QD, will need recheck in 4 wks outpatient, status post 1 dose of vitamin D 3. Elevated troponin, troponin .06-->.06-->.05, plaque, nonischemic, no chest pain -Monitor tele, and vitals 4. Right foot drop -Multipodis boot ordered 5. Sacral pressure ulcer, stage III -facilities administrator following -Turn Q2h 6. Questionable cdiff, patient reports had stool samples tested 3 weeks ago in outpatient lab, she does not know the results -d/c Flagyl 500mg TID -C diff here neg 7. Electrolyte derangement replaced and following. Chronic medical conditions Gerd, HLD, and osteoarthritis: Stable. Continue home medications as per icu specialist patient and her Daughter wants full aggressive management. continue Caloric Count. No changes to anterior assessment Discharge Planning Discharged was Held 12/14/16 calory count in progress from 12/16-12/18 w/ nutrition recs to be provided on . I have encouraged pt to work w PT. daughter will do the same Palliative care consult in place for assistance w goals of care and pain meds regimen. Pt's insurance is denying authorization for discharge to rehab/SNF as pt not participating in PT will try to get placement for the patient for tomorrow. Dylan Cassidy MD Dec 18, 2016 08:32
[2016-12-18] MEDS ORDERED: CALCIUM GLUCONATE INJ 1 GM in DEXTROSE 5% IN WATER 100ML INJ 100 ML IV ONE ×2 (09:00)
[2016-12-18] MEDS ORDERED: POTASSIUM PHOSPHATE INJ 15 MMOL in SODIUM CHLORIDE 0.9% INJ 150 ML IV ONE (09:30)
[2016-12-18] MEDS: GABAPENTIN 400 MG CAP PO SCH ×3 (10:20→17:05)
[2016-12-18] MEDS: NYSTATIN SUSP 500,000 U/5 ML CUP SWISH-SWAL SCH ×4 (10:20→20:49)
[2016-12-18] MEDS: PANTOPRAZOLE SOD 20 MG DELAYED RELEASE TAB PO SCH ×2 (10:20→20:49)
[2016-12-18] MEDS: MULTIVITAMIN TAB PO SCH (10:20)
[2016-12-18] MEDS: PENTOXIFYLLINE 400 MG CONTROLLED RELEASE TAB PO SCH ×3 (10:20→17:05)
[2016-12-18] MEDS: RIVAROXABAN 15 MG TAB PO SCH (10:20)
[2016-12-18] MEDS: CHOLECALCIFEROL (VIT D3) 5000 UNIT CAP PO SCH (10:20)
[2016-12-18] MEDS: SODIUM CHLORIDE 0.9% FLUSH 10 ML FLUSH IV FLUSH SCH ×2 (10:21→20:49)
[2016-12-18] MEDS: POTASSIUM CHLOR 20 MEQ PREMIX 100 ML IV SCH ×2 (10:23→17:25)
[2016-12-18] MEDS: DEXAMETHASONE 4 MG TAB PO SCH (12:48)
--- NOTE | 2016-12-18 15:15 | HHI.HCPN ---
Reason for visit a. To assist with evaluation and management of symptoms including: Pain, malnutrition b. To assist medical decision maker(s) with: better understanding of current medical conditions; weighing benefits/burdens of medical treatment options; making medical treatment decisions. . (Aleksandra Ventura) Subjective/Interval History This is a 76 year old female with debilitating pain status post radiation and chemotherapy for anal cancer. She describes the pain as 10/10 sharp, gluteal cleft pain from a Stage IV decubitus since cancer treatment. She had previously been treated with a fentanyl patch for pain, which caused significant confusion and resulted in the patient and family declining narcotics. She is under treatment for wound care however wound healing is being compromised by poor nutrition. At my evaluation today she is somewhat oppositional, first stating that she is starving and then when offered food declines saying "no I have real food in the refrigerator". Her lunch tray is at bedside and shows dull food eaten from it. I did discuss this with the nurse and the nurse tells me that she was unable to tolerate lunch so the nurse ordered her mashed potatoes to try to get her to eat something and she was unable to eat that due to lethargy, pain and confusion. Ensure supplements are at bedside unopened, and the patient also refused those when offered. Laboratory studies today show white blood cells 4.0, hemoglobin 9.3, hematocrit 26.3, platelets 91, sodium 142, potassium 3.3, BUN 18, creatinine 0.21, corrected calcium 8.4, phosphorus 2.2, protein 3.9, vitamin D 11.0. Wound care assessment of midline gluteal cleft pressure ulcer shows a reddened appearance with granulating tissue and yellow slough and minimal drainage. She has additional wounds on the left first metatarsal head open to air in Multi-Podus boots. She also has a left hip ecchymotic area and the right knee abrasion which is granulated with minimal drainage. She spoke with me regarding her past medical history of chemotherapy and radiation on her anal cancer and gave a fairly clear family history, describing her 2 daughters, Merna who is her decision maker and Giovana, who lives in [place]. She described her declining mobility and frequent falls and shows fair insight into her decline, describing her progressive loss of mobility. She was able to identify Merna as her healthcare surrogate and healthcare surrogate form was completed. . Family/friend interactions Spoke with daughter, Giovana, from [place], concerned about her mother's condition. She feels that her mother's condition is declining and stated that she did not believe her mother would want CPR and intubation based on a prior conversation her mother had had with her. She states her mother is a very devout Gnosticist who feels that God should determine her time to go. She states that her mother told her she would not want to be intubated. She noted that her mother had called her and told her that she needed to see her by her birthday, which is January 03, and said she was just holding on for her birthday. Palliative care contact information was provided and Giovana stated she will call her sister, discuss our conversation, provide her with my contact information so a family conference can be scheduled with Giovana attending by phone to discuss their mother's care. (Aleksandra Ventura) Advance Directives Living Will: Never completed Health Care Surrogate: Copy in medical record Durable Power of [place] Patroller: Copy in medical record (Aleksandra Ventura) Advance Directive Specifics Health Care Surrogate(s): Bonnie Bauman . (Aleksandra Ventura) Objective Vital Signs Date Time Temp Pulse Resp B/P Pulse Ox O2 Delivery O2 Flow Rate FiO2 12/18/16 12:00 97.4 94 20 98/52 95 12/18/16 08:00 97.6 83 20 122/73 95 12/18/16 04:00 98.1 80 18 122/78 95 12/18/16 00:00 98.0 78 16 115/75 96 12/18/16 00:00 Room Air 12/17/16 20:15 Room Air 12/17/16 20:00 98.3 81 18 99/58 96 12/17/16 20:00 80 12/17/16 16:00 98.1 77 18 109/64 94 Intake & Output 12/18/16 12/18/16 07:00 19:00 Intake Total 1704 ml Balance 1704 ml Intake Oral 360 ml IV Total 1344 ml # Voids 7 1 # Bowel Movements 2 1 Physical Exam CONSTITUTIONAL/GENERAL: This is an elderly, weak, depressed-appearing patient, in no apparent distress. TUBES/LINES/DRAINS: heel protection boots, 22-gauge PIV right forearm SKIN: No jaundice. Abrasion right knee. Mid gluteal cleft wound dressed clean dry and intact. Skin temperature cool. Not diaphoretic. HEAD: Atraumatic. Normocephalic. EYES: Pupils equal and round and reactive. Extraocular motions intact. No scleral icterus. No injection or drainage. Fundi not examined. ENT: Hearing grossly normal. Nose without bleeding or purulent drainage. Throat without visible erythema, exudates, masses, or lesions. NECK: Trachea midline. Supple, nontender. No palpable thyroid enlargement or nodularity. CARDIOVASCULAR: Regular rate and rhythm without murmurs, gallops, or rubs. No JVD. Peripheral pulses symmetric. RESPIRATORY/CHEST: Symmetric, unlabored respirations. Clear to auscultation. Breath sounds equal bilaterally. No wheezes, rales, or rhonchi. GASTROINTESTINAL: Abdomen soft, non-tender, nondistended. No hepato-splenomegaly , or palpable masses. No guarding. Bowel sounds present. GENITOURINARY: Without palpable bladder distension. MUSCULOSKELETAL: Extremities without clubbing, cyanosis, or edema. Muscle atrophy evident bilaterally. NEUROLOGICAL: Lethargic, arousable. Follows commands. Cognitively sharp. Moves all extremities which causes pain. PSYCHIATRIC: No obvious anxiety, but does appear depressed. . (Aleksandra Ventura) Diagnostic Tests Laboratory Laboratory Tests Test 12/18/16 06:30 White Blood Count 4.0 TH/MM3 (4.0-11.0) Red Blood Count 2.96 MIL/MM3 (4.00-5.30) Hemoglobin 9.3 GM/DL (11.6-15.3) Hematocrit 26.3 % (35.0-46.0) Mean Corpuscular Volume 88.7 FL (80.0-100.0) Mean Corpuscular Hemoglobin 31.4 PG (27.0-34.0) Mean Corpuscular Hemoglobin 35.4 % Concent (32.0-36.0) Red Cell Distribution Width 17.9 % (11.6-17.2) Platelet Count 91 TH/MM3 (150-450) Mean Platelet Volume 6.9 FL (7.0-11.0) Neutrophils (%) (Auto) 86.0 % (16.0-70.0) Lymphocytes (%) (Auto) 11.0 % (9.0-44.0) Monocytes (%) (Auto) 2.9 % (0.0-8.0) Eosinophils (%) (Auto) 0.0 % (0.0-4.0) Basophils (%) (Auto) 0.1 % (0.0-2.0) Neutrophils # (Auto) 3.4 TH/MM3 (1.8-7.7) Lymphocytes # (Auto) 0.4 TH/MM3 (1.0-4.8) Monocytes # (Auto) 0.1 TH/MM3 (0-0.9) Eosinophils # (Auto) 0.0 TH/MM3 (0-0.4) Basophils # (Auto) 0.0 TH/MM3 (0-0.2) CBC Comment AUTO DIFF Differential Comment AUTO DIFF CONFIRMED Platelet Estimate LOW (NORMAL) Platelet Morphology Comment NORMAL (NORMAL) Sodium Level 142 MEQ/L (136-145) Potassium Level 3.3 MEQ/L (3.5-5.1) Chloride Level 112 MEQ/L (98-107) Carbon Dioxide Level 21.2 MEQ/L (21.0-32.0) Anion Gap 9 MEQ/L (5-15) Blood Urea Nitrogen 18 MG/DL (7-18) Creatinine 0.21 MG/DL (0.50-1.00) Estimat Glomerular Filtration 327 ML/MIN Rate (>89) Random Glucose 81 MG/DL (74-106) Calcium Level 6.7 MG/DL (8.5-10.1) Protein Corrected Calcium 8.4 MG/DL (8.5-10.1) Phosphorus Level 2.2 MG/DL (2.5-4.9) Total Protein 3.9 GM/DL (6.4-8.2) (Aleksandra Ventura) Result Diagram: 12/18/1662912/18/16629 Imaging Last Impressions Head CT 12/06/161821 Signed Impressions: Service Date/Time: Tuesday, December 06, 2016 19:06 - CONCLUSION: Normal examination. Ambrocio Le Jr., MD Chest X-Ray 12/06/161821 Signed Impressions: Service Date/Time: Tuesday, December 06, 2016 19:25 - CONCLUSION: No acute disease. Ambrocio Le Jr., MD Cervical Spine CT 5/31/17 1822 Signed Impressions: Service Date/Time: Tuesday, December 06, 2016 19:06 - CONCLUSION: 1. No fracture or dislocation. 2. Multilevel degenerative changes with patent central canal. Ambrocio Le Jr., MD Knee X-Ray 12/06/16 0000 Signed Impressions: Service Date/Time: Tuesday, December 06, 2016 19:28 - CONCLUSION: Knee arthroplasty. No acute abnormality. Ambrocio Le Jr., MD Hip and Pelvis X-Ray 12/06/16 0000 Signed Impressions: Service Date/Time: Tuesday, December 06, 2016 19:27 - CONCLUSION: No acute disease. 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 (3) anal cancer January 2016, status post chemotherapy and radiation (4) skin ulcerations/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 Comment: Perianal and presacral (5) depression (6) GERD (7) hyperlipidemia (8) history of DVT right leg (9) hypertension (10) history of nephrolithiasis Symptom Scale: (1) pain 0-10 Scale: 5 (primarily due to the sciatic nerve injury) Comment: Primarily back/buttock/right leg sciatic nerve pain (2) depression 0-10 Scale: 5 (no doubt worsened by the chronic pain and bedbound status) (3) anorexia 0-10 Scale: 5 (exacerbated by pain, fatigue, depression) Pertinent Non-Medical Issues Psychosocial: , was living alone, 2 daughters Spiritual: The patient has a [employer] background, and her spirituality has been important for her. She has appreciated mainframe developer visits. Legal: The patient has capacity for decision-making; she has designated her daughter Merna as healthcare surrogate. Ethical issues impacting care: None . Important Contacts Daughter: Merna [phone] . Prognosis This patient has been on a fairly steady decline over the past several months, and that seems to be continuing. She has now become bedbound, has ongoing chronic pain, debility, fatigue, and anorexia, probably all made somewhat worse by her apparent depression and lack of motivation. If this continues, other complications will occur, and this decline will lead to the patient's . At some point in the upcoming weeks or months, she will likely be appropriate for hospice services. . Code Status: Full Code Plan * FULL CODE * DECISION-MAKING: The patient has capacity for decision-making; she has designated her daughter Merna as healthcare surrogate. * GOALS: The patient and her daughter do want to continue aggressive care at this time. However, they both do realize that the patient has been on a fairly steady decline, and if this does not turn around in the upcoming weeks, the patient is likely to develop other complications that will lead to further debility and/or . Merna would be open to hospice assistance if this decline does in fact continue. * SYMPTOMS: == Pain: Her primary pain syndrome seems to be neuropathic from the ( apparently radiation-induced) sciatic nerve injury and pain from open wound; she is on gabapentin and steroids, but the pain continues to worsen, and the patient and her daughter are both reluctant for another trial of opiates because of the effects on the patient's mental clarity. It would be useful to hear what additional measures the neurologists believe would be useful to treat this pain. She is unable to participate in physical therapy due to her pain and has been declined by SNF's due to her inability to participate in therapy. While she remains immobile, she continues to decline. == Anorexia: The patient's appetite continues to worsen, and is likely due to a combination of malaise, fatigue, chronic pain, and depression. She has already been on daily Decadron, but it may be worth trying some Megace also. There is a calorie count currently underway showing a 24-hour count of 15% of breakfast, 25% of lunch and 75% of dinner consumed. == Depression: Certainly much of the patient's depression is situational, but no doubt it has been worsened by her chronic pain syndrome and general debility. It may be worthwhile trying an antidepressant, or even an antidepressant plus some low-dose daytime Ritalin, perhaps 2.5 mg q a.m. and again at noon for a couple weeks in an attempt to improve the patient's mood, state of mind, motivation, while hoping that the antidepressant will then become helpful. Palliative care will continue to follow the patient during hospital course as condition evolves, to assist patient/decision-maker with understanding of their medical conditions, weighing benefits/burdens of treatment options, for clarification of goals of treatment. Additionally will assist with any symptoms of palliative concern. . (Aleksandra Ventura) Attestation To help prompt me to consider important information that might be impacting today's encounter and assessment, information from prior notes written by myself or my colleagues may have been "brought forward" into today's note. My signature on this note, however, is an attestation that I personally performed the exam, history, and/or decision-making noted today, and, unless otherwise indicated, the interactions with patient, family, and staff as well as the review of records all occurred today. I also attest that the listed assessment and stated plan reflect my best clinical judgment today based on the combination of historical information, prior notes, and today's exam/ interactions. When time spent is documented, it refers only to time spent today by the signer, or if indicated, combined time spent today by collaborating physician/nurse practitioner. (Aleksandra Ventura) Attestation Discussed with MOMO, agree with assessment and plan (Madhu Haines MD) Aleksandra Ventura Dec 18, 2016 15:15 Madhu Haines MD Dec 20, 2016 13:50
[2016-12-18] MEDS: ACETAMINOPHEN 325 MG TAB PO PRN (20:48)
[2016-12-18] MEDS: ATORVASTATIN 40 MG TAB PO SCH (20:49)
[2016-12-19] VITALS (9 sets, daily range): BP systolic 99–137; BP diastolic 56–84; PULSE 80–100; RESP 16–20; TEMP 97.4–98.2; O2SAT 94–100
[2016-12-19] MEDS: DEXAMETHASONE 4 MG TAB PO SCH ×2 (00:17→13:41)
[2016-12-19] MEDS: traMADol/ACETAMINOPHEN 37.5/325 1 TAB PO PRN (00:41)
[2016-12-19] MEDS: SODIUM CHLOR 0.9% 1000 ML INJ 1,000 ML IV SCH (00:41)
[2016-12-19 07:01] LABS: POTASSIUM 4.3 MEQ/L (3.5-5.1)
[2016-12-19] MEDS: SODIUM CHLORIDE 0.9% FLUSH 10 ML FLUSH IV FLUSH SCH ×2 (09:00→20:06)
[2016-12-19] MEDS: GABAPENTIN 400 MG CAP PO SCH ×3 (09:27→16:58)
[2016-12-19] MEDS: NYSTATIN SUSP 500,000 U/5 ML CUP SWISH-SWAL SCH ×4 (09:27→20:05)
[2016-12-19] MEDS: PANTOPRAZOLE SOD 20 MG DELAYED RELEASE TAB PO SCH ×2 (09:27→20:06)
[2016-12-19] MEDS: PENTOXIFYLLINE 400 MG CONTROLLED RELEASE TAB PO SCH ×3 (09:28→16:58)
[2016-12-19] MEDS: MULTIVITAMIN TAB PO SCH (09:28)
[2016-12-19] MEDS: CHOLECALCIFEROL (VIT D3) 5000 UNIT CAP PO SCH (09:28)
[2016-12-19] MEDS: RIVAROXABAN 15 MG TAB PO SCH (09:28)
--- NOTE | 2016-12-19 10:16 | HHI.PR ---
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 followed in her bedroom and discussed with nurse Miss Ramos she is awaiting for final recommendations by personal computer specialist, no complaint at this time. 12/17/16: Seen in her bedroom as per Palliative care notes, the patient and her Daughter wants to continue with Aggressive Care, Removed Fry cath, started management for Oral Thrush but the patient refuse the Nystatin. 12/18: Stable in her bedroom she will finish her Calory count tomorrow 12/19: Seen in her bedroom, stable in no changes to anterior management, not eating or drinking properly, the prognosis in this condition continue to be poor, discussed with her Daughter Miss Merna Paulson she states she will talk with personal computer specialist and define probable Inpatient Hospice. Objective Vital Signs Date Time Temp Pulse Resp B/P Pulse Ox O2 Delivery O2 Flow Rate FiO2 12/19/16 08:00 97.7 87 20 128/84 96 12/19/16 04:12 97.5 86 16 119/74 98 12/19/16 00:00 Nasal Cannula 2.00 12/19/16 00:00 98.2 90 16 137/77 94 12/18/16 20:00 Nasal Cannula 2.00 12/18/16 19:56 86 12/18/16 19:43 98.5 99 16 131/73 97 12/18/16 18:19 95 Nasal Cannula 2.00 12/18/16 16:00 97.7 89 20 126/69 85 12/18/16 12:00 97.4 94 20 98/52 95 12/18/16 10:31 75 12/18/16 10:31 Room Air I/O 12/18/16 12/18/16 12/18/16 12/19/16 12/19/16 12/19/16 07:00 15:00 23:00 07:00 15:00 23:00 Intake Total 792 ml 2095 ml 535 ml Output Total 50 ml Balance 792 ml 2045 ml 535 ml Intake Oral 120 ml 240 ml 120 ml IV Total 672 ml 1855 ml 415 ml Output Urine Total 50 ml # Voids 4 3 4 7 # Bowel Movements 1 3 2 1 Result Diagram: 12/18/16 0630 12/19/16 0600 Imaging Last Impressions Head CT 12/06/161821 Signed Impressions: Service Date/Time: Tuesday, December 06, 2016 19:06 - CONCLUSION: Normal examination. Ambrocio Le Jr., MD Chest X-Ray 12/06/161821 Signed Impressions: Service Date/Time: Tuesday, December 06, 2016 19:25 - CONCLUSION: No acute disease. Ambrocio Le Jr., MD Cervical Spine CT 12/06/161821 Signed Impressions: Service Date/Time: Tuesday, December 06, 2016 19:06 - CONCLUSION: 1. No fracture or dislocation. 2. Multilevel degenerative changes with patent central canal. Ambrocio Le Jr., MD Knee X-Ray 12/06/16 0000 Signed Impressions: Service Date/Time: Tuesday, December 06, 2016 19:28 - CONCLUSION: Knee arthroplasty. No acute abnormality. Ambrocio Le Jr., MD Hip and Pelvis X-Ray 12/06/16 0000 Signed Impressions: Service Date/Time: Tuesday, December 06, 2016 19:27 - CONCLUSION: No acute disease. Ambrocio Le Jr., MD Procedures No procedures. Other Results Laboratory Tests Test 12/18/16 12/19/16 06:30 06:00 White Blood Count 4.0 TH/MM3 Red Blood Count 2.96 MIL/MM3 Hemoglobin 9.3 GM/DL Hematocrit 26.3 % Mean Corpuscular Volume 88.7 FL Mean Corpuscular Hemoglobin 31.4 PG Mean Corpuscular Hemoglobin 35.4 % Concent Red Cell Distribution Width 17.9 % Platelet Count 91 TH/MM3 Mean Platelet Volume 6.9 FL Neutrophils (%) (Auto) 86.0 % Lymphocytes (%) (Auto) 11.0 % Monocytes (%) (Auto) 2.9 % Eosinophils (%) (Auto) 0.0 % Basophils (%) (Auto) 0.1 % Neutrophils # (Auto) 3.4 TH/MM3 Lymphocytes # (Auto) 0.4 TH/MM3 Monocytes # (Auto) 0.1 TH/MM3 Eosinophils # (Auto) 0.0 TH/MM3 Basophils # (Auto) 0.0 TH/MM3 CBC Comment AUTO DIFF Differential Comment AUTO DIFF CONFIRMED Platelet Estimate LOW Platelet Morphology Comment NORMAL Sodium Level 142 MEQ/L Chloride Level 112 MEQ/L Carbon Dioxide Level 21.2 MEQ/L Anion Gap 9 MEQ/L Blood Urea Nitrogen 18 MG/DL Creatinine 0.21 MG/DL Estimat Glomerular Filtration 327 ML/MIN Rate Random Glucose 81 MG/DL Calcium Level 6.7 MG/DL Protein Corrected Calcium 8.4 MG/DL Total Protein 3.9 GM/DL Potassium Level 4.3 MEQ/L Phosphorus Level 3.0 MG/DL Objective Remarks GENERAL: Well-developed patient, in no apparent distress. CARDIOVASCULAR: Normal rate and regular rhythm without murmurs RESPIRATORY: Good respiratory efforts. Breath sounds equal and clear to auscultation bilaterally. GASTROINTESTINAL: Abdomen soft, non-tender, non-distended. Normal active bowel sounds MUSCULOSKELETAL: Extremities without edema. pt able to use her upper extremities to hold herself when rolled to the right SKIN: stage 3 sacral decub ulcer present, some abrasions also noted around the buttocks. NEURO: Awake and alert. generalized weakness noted. PSYCH: Appropriate mood and affect. Medications and IVs Current Medications Medications (Trade) Dose Ordered Sig/Anette Route Start Time Stop Time Status Last Admin (NS Flush) 2 ml UNSCH PRN IV FLUSH 12/06/16 20:45 12/10/16 01:09 (NS Flush) 2 ml BID IV FLUSH 12/06/16 21:00 12/18/16 20:49 (Narcan Inj) 0.4 mg UNSCH PRN IV 12/06/16 20:45 (Lipitor) 40 mg HS PO 12/07/16 21:00 12/18/16 20:49 (Neurontin) 1,200 mg TID PO 12/07/16 13:00 12/19/16 09:27 (TRENtal SR) 400 mg TID PO 12/07/16 13:00 12/19/16 09:28 (Xarelto) 15 mg DAILY PO 12/07/16 12:00 12/19/16 09:28 (Theragran) 1 tab DAILY PO 12/07/16 12:00 12/19/16 09:28 (Protonix) 20 mg BID PO 12/07/16 12:00 12/19/16 09:27 (Vitamin D3) 5,000 units DAILY PO 12/08/16 09:00 12/19/16 09:28 (Decadron) 4 mg Q12H PO 12/11/16 00:00 12/19/16 00:17 Miscellaneous Information 1 Q3D T-DERMAL 12/17/16 16:00 (Tylenol) 650 mg Q6H PRN PO 12/14/16 18:00 12/18/16 20:48 (Ultracet 37.5-325 Mg) 1 tab Q4H PRN PO 12/15/16 13:00 12/19/16 00:41 (Mycostatin Liq) 5 ml QID SWISH-SWAL 12/17/16 18:00 12/19/16 09:27 A/P Assessment and Plan 1. Severe physical deconditioning, with hip and knee pain from falls Reviewed: hip xray and knee x ray negative for fracture. Vitamin D low. B12, CPK, and TSH within normal limits. -PT eval and treat, patient needs rehab however, pt unable to participate in PT due to pain. -Cont home gabapentin -Rehabilitation medicine, Dr. Chand, evaluated the patient and recommended OT/ PT, mobilize up to stretcher chair with Roho cushion, Turn and reposition every 2 hours to protect skin, her daughter did not wanted narcotics for her Mother, discussed with her today and her mother does not want to Participate in Rehab, difficult to placement, she will discuss with personal computer specialist for probable Hospice placement. 2. Osteomalacia, Vitamin D level 11, patient with increase weakness -Vitamin D3 5000 units QD, will need recheck in 4 wks outpatient, status post 1 dose of vitamin D 3. Elevated troponin, troponin .06-->.06-->.05, plaque, nonischemic, no chest pain -Monitor tele, and vitals 4. Right foot drop -Multipodis boot ordered 5. Sacral pressure ulcer, stage III -assignment editor following -Turn Q2h 6. Questionable cdiff, patient reports had stool samples tested 3 weeks ago in outpatient lab, she does not know the results -d/c Flagyl 500mg TID -C diff here neg 7. Electrolyte derangement replaced Chronic medical conditions Gerd, HLD, and osteoarthritis: Stable. Continue home medications Discussed with Patient and Nurse Miss Patterson, also with her Daughter Miss Merna Pualson to the phone number [phone] she will discuss with national coverage specialist and decide Discharge Planning Discharged was Held 12/14/16 calory count in progress from 12/16-12/18 w/ nutrition recs to be provided on . Her Daughter will discuss with Palliative care and will let me know her decision. Palliative care consult in place for assistance w goals of care and pain meds regimen. Pt's insurance is denying authorization for discharge to rehab/SNF as pt not participating in PT Dylan Cassidy MD Dec 19, 2016 10:16
--- NOTE | 2016-12-19 15:17 | HHI.HCPN ---
Reason for visit a. To assist with evaluation and management of symptoms including: Pain, malnutrition b. To assist medical decision maker(s) with: better understanding of current medical conditions; weighing benefits/burdens of medical treatment options; making medical treatment decisions. . (Aleksandra Ventura) Subjective/Interval History 76-year-old female seen today in follow-up to evaluate pain and anorexia. Her lunch tray is at bedside, with much of the food remaining. A bottle of ensure had been consumed. The patient was lethargic with difficulty keeping her eyes open or following the conversation. Her speech was very quiet. She could not answer questions regarding date or place. I asked her about her daughters and she was able to identify her daughter Merna however could not remember her last name. I had contacted Merna yesterday after first evaluating her mother and she returned my call last evening, stating that her goals were to continue progressing towards rehabilitation. I was then contacted by Dr. Haines who stated that the daughter, Merna, had contacted hospice asking for a consultation. I contacted Merna by phone for further information and she stated that she had called hospice for an evaluation after speaking to the hospitalist, Dr. Aquino , regarding her mother's progressive decline and Merna stated that she would evaluate for inpatient hospice. She informed me that she had previously had her mother evaluated by hospice but at that time there was no terminal diagnosis so she was not considered eligible for hospice services. . Family/friend interactions Discussed prognosis, clinical condition and post hospital care options with francisco Bauman and Dr. Chao Sierra, a long-time friend of the family. Hospice nurse Ramona Alatorre was available for information and questions. Information regarding hospice care center, goals and care were discussed in detail. After extensive discussion, it was determined that Merna would like to have further conversation with her mother prior to making this decision. Hospice and palliative care information was provided for further contact and follow-up. (Aleksandra Ventura) Advance Directives Living Will: Never completed Health Care Surrogate: Copy in medical record Durable Power of Assistant Boiler Operator: Copy in medical record (Aleksandra Ventura) Advance Directive Specifics Health Care Surrogate(s): Francisco Bauman . (Aleksandra Ventura) Objective Vital Signs Date Time Temp Pulse Resp B/P Pulse Ox O2 Delivery O2 Flow Rate FiO2 12/19/16 12:00 97.7 97 20 116/70 94 12/19/16 08:00 97.7 87 20 128/84 96 12/19/16 07:15 Nasal Cannula 2.00 12/19/16 04:12 97.5 86 16 119/74 98 12/19/16 00:00 Nasal Cannula 2.00 12/19/16 00:00 98.2 90 16 137/77 94 12/18/16 20:00 Nasal Cannula 2.00 12/18/16 19:56 86 12/18/16 19:43 98.5 99 16 131/73 97 12/18/16 18:19 95 Nasal Cannula 2.00 12/18/16 16:00 97.7 89 20 126/69 85 Intake & Output 12/19/16 12/19/16 07:00 19:00 Intake Total 1486 ml 480 ml Output Total 50 ml Balance 1436 ml 480 ml Intake Oral 360 ml 480 ml IV Total 1126 ml Output Urine Total 50 ml # Voids 9 3 # Bowel Movements 2 1 Physical Exam CONSTITUTIONAL/GENERAL: This is an elderly, weak, depressed-appearing patient, in no apparent distress. TUBES/LINES/DRAINS: heel protection boots, 22-gauge PIV right forearm SKIN: No jaundice. Abrasion right knee. Mid gluteal cleft wound dressed clean dry and intact. Skin temperature cool. Not diaphoretic. ENT: Clearing erythema on palate. NECK: Trachea midline. Supple, nontender. No palpable thyroid enlargement or nodularity. CARDIOVASCULAR: Regular rate and rhythm without murmurs, gallops, or rubs. No JVD. Peripheral pulses symmetric. RESPIRATORY/CHEST: Symmetric, unlabored respirations. Clear to auscultation. Breath sounds equal bilaterally. No wheezes, rales, or rhonchi. GASTROINTESTINAL: Abdomen soft, non-tender, nondistended. No hepato-splenomegaly , or palpable masses. No guarding. Bowel sounds present. GENITOURINARY: Without palpable bladder distension. MUSCULOSKELETAL: Extremities without clubbing, cyanosis, or edema. Muscle atrophy evident bilaterally. NEUROLOGICAL: Lethargic, arousable to noxious stimuli. PSYCHIATRIC: Lethargic, flat affect. (Aleksandra Ventura) Diagnostic Tests Laboratory Laboratory Tests Test 12/18/16 12/19/16 06:30 06:00 White Blood Count 4.0 TH/MM3 (4.0-11.0) Red Blood Count 2.96 MIL/MM3 (4.00-5.30) Hemoglobin 9.3 GM/DL (11.6-15.3) Hematocrit 26.3 % (35.0-46.0) Mean Corpuscular Volume 88.7 FL (80.0-100.0) Mean Corpuscular Hemoglobin 31.4 PG (27.0-34.0) Mean Corpuscular Hemoglobin 35.4 % Concent (32.0-36.0) Red Cell Distribution Width 17.9 % (11.6-17.2) Platelet Count 91 TH/MM3 (150-450) Mean Platelet Volume 6.9 FL (7.0-11.0) Neutrophils (%) (Auto) 86.0 % (16.0-70.0) Lymphocytes (%) (Auto) 11.0 % (9.0-44.0) Monocytes (%) (Auto) 2.9 % (0.0-8.0) Eosinophils (%) (Auto) 0.0 % (0.0-4.0) Basophils (%) (Auto) 0.1 % (0.0-2.0) Neutrophils # (Auto) 3.4 TH/MM3 (1.8-7.7) Lymphocytes # (Auto) 0.4 TH/MM3 (1.0-4.8) Monocytes # (Auto) 0.1 TH/MM3 (0-0.9) Eosinophils # (Auto) 0.0 TH/MM3 (0-0.4) Basophils # (Auto) 0.0 TH/MM3 (0-0.2) CBC Comment AUTO DIFF Differential Comment AUTO DIFF CONFIRMED Platelet Estimate LOW (NORMAL) Platelet Morphology Comment NORMAL (NORMAL) Sodium Level 142 MEQ/L (136-145) Potassium Level 3.3 MEQ/L 4.3 MEQ/L (3.5-5.1) (3.5-5.1) Chloride Level 112 MEQ/L (98-107) Carbon Dioxide Level 21.2 MEQ/L (21.0-32.0) Anion Gap 9 MEQ/L (5-15) Blood Urea Nitrogen 18 MG/DL (7-18) Creatinine 0.21 MG/DL (0.50-1.00) Estimat Glomerular Filtration 327 ML/MIN Rate (>89) Random Glucose 81 MG/DL (74-106) Calcium Level 6.7 MG/DL (8.5-10.1) Protein Corrected Calcium 8.4 MG/DL (8.5-10.1) Phosphorus Level 2.2 MG/DL 3.0 MG/DL (2.5-4.9) (2.5-4.9) Total Protein 3.9 GM/DL (6.4-8.2) (Aleksandra Ventura) Result Diagram: 12/18/16 0630 12/19/16 0600 Imaging Last Impressions Head CT 12/06/161821 Signed Impressions: Service Date/Time: Tuesday, December 06, 2016 19:06 - CONCLUSION: Normal examination. Ambrocio Le Jr., MD Chest X-Ray 12/06/161821 Signed Impressions: Service Date/Time: Tuesday, December 06, 2016 19:25 - CONCLUSION: No acute disease. Ambrocio Le Jr., MD Cervical Spine CT 12/06/161821 Signed Impressions: Service Date/Time: Tuesday, December 06, 2016 19:06 - CONCLUSION: 1. No fracture or dislocation. 2. Multilevel degenerative changes with patent central canal. Ambrocio Le Jr., MD Knee X-Ray 12/06/16 0000 Signed Impressions: Service Date/Time: Tuesday, December 06, 2016 19:28 - CONCLUSION: Knee arthroplasty. No acute abnormality. Ambrocio Le Jr., MD Hip and Pelvis X-Ray 12/06/16 0000 Signed Impressions: Service Date/Time: Tuesday, December 06, 2016 19:27 - CONCLUSION: No acute disease. 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 (3) anal cancer January 2016, status post chemotherapy and radiation (4) skin ulcerations/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 Comment: Perianal and presacral (5) depression (6) GERD (7) hyperlipidemia (8) history of DVT right leg (9) hypertension (10) history of nephrolithiasis Symptom Scale: (1) pain 0-10 Scale: 5 (primarily due to the sciatic nerve injury) Comment: Primarily back/buttock/right leg sciatic nerve pain (2) depression 0-10 Scale: 5 (no doubt worsened by the chronic pain and bedbound status) (3) anorexia 0-10 Scale: 5 (exacerbated by pain, fatigue, depression) Pertinent Non-Medical Issues Psychosocial: , was living alone, 2 daughters Spiritual: The patient has a [employer]ism background, and her spirituality has been important for her. She has appreciated rug receiving clerk visits. Legal: The patient has capacity for decision-making; she has designated her daughter Merna as healthcare surrogate. Ethical issues impacting care: None . Important Contacts Daughter: Merna [phone] . Prognosis This patient has been on a fairly steady decline over the past several months, and that seems to be continuing. She has now become bedbound, has ongoing chronic pain, debility, fatigue, and anorexia, probably all made somewhat worse by her apparent depression and lack of motivation. If this continues, other complications will occur, and this decline will lead to the patient's . At some point in the upcoming weeks or months, she will likely be appropriate for hospice services. . Code Status: Full Code Plan * DNR * DECISION-MAKING: The patient has minimal capacity for decision-making; she has designated her daughter Merna as healthcare surrogate. * GOALS: The daughter wants to pursue rehabilitative therapy at this time, however the mother states "I a.m. tired" and is unable to participate in physical therapy. Goals now include appropriate placement. She is considering hospice. SYMPTOMS: * Pain: She has pain with movement and has been unable to participate in therapy. Daughter had previously been unwilling to use narcotics however is now amenable to low-dose hydrocodone if it will help her mother participate in therapy towards rehabilitation placement. * Anorexia: The patient's appetite continues to worsen, and is likely due to a combination of malaise, fatigue, chronic pain, and depression. She has already been on daily Decadron, but it may be worth trying some Megace also. PO intake continues to be very poor. * Depression: Certainly much of the patient's depression is situational, but no doubt it has been worsened by her chronic pain syndrome and general debility. It may be worthwhile trying an antidepressant, or even an antidepressant plus some low-dose daytime Ritalin, perhaps 2.5 mg q a.m. and again at noon for a couple weeks in an attempt to improve the patient's mood, state of mind, motivation, while hoping that the antidepressant will then become helpful. Palliative care will continue to follow the patient during hospital course as condition evolves, to assist patient/decision-maker with understanding of their medical conditions, weighing benefits/burdens of treatment options, for clarification of goals of treatment. Additionally will assist with any symptoms of palliative concern. . (Aleksandra Ventura) Attestation To help prompt me to consider important information that might be impacting today's encounter and assessment, information from prior notes written by myself or my colleagues may have been "brought forward" into today's note. My signature on this note, however, is an attestation that I personally performed the exam, history, and/or decision-making noted today, and, unless otherwise indicated, the interactions with patient, family, and staff as well as the review of records all occurred today. I also attest that the listed assessment and stated plan reflect my best clinical judgment today based on the combination of historical information, prior notes, and today's exam/ interactions. When time spent is documented, it refers only to time spent today by the signer, or if indicated, combined time spent today by collaborating physician/nurse practitioner. (Aleksandra Ventura) Attestation Discussed with MOMO, agree with assessment and plan (Madhu Haines MD) Aleksandra Ventura Dec 19, 2016 15:17 Madhu Haines MD Dec 20, 2016 13:58
[2016-12-19] MEDS: ATORVASTATIN 40 MG TAB PO SCH (20:05)
[2016-12-20] VITALS (7 sets, daily range): BP systolic 93–136; BP diastolic 62–78; PULSE 82–91; RESP 18–20; TEMP 97.2–98.1; O2SAT 96–100
[2016-12-20] MEDS: DEXAMETHASONE 4 MG TAB PO SCH ×2 (00:21→13:11)
[2016-12-20] MEDS: traMADol/ACETAMINOPHEN 37.5/325 1 TAB PO PRN ×2 (00:21→06:19)
[2016-12-20] MEDS: CHOLECALCIFEROL (VIT D3) 5000 UNIT CAP PO SCH (08:28)
[2016-12-20] MEDS: GABAPENTIN 400 MG CAP PO SCH ×3 (08:28→17:07)
[2016-12-20] MEDS: PENTOXIFYLLINE 400 MG CONTROLLED RELEASE TAB PO SCH ×3 (08:28→17:11)
[2016-12-20] MEDS: NYSTATIN SUSP 500,000 U/5 ML CUP SWISH-SWAL SCH ×4 (08:28→21:46)
[2016-12-20] MEDS: PANTOPRAZOLE SOD 20 MG DELAYED RELEASE TAB PO SCH ×2 (08:28→21:46)
[2016-12-20] MEDS: RIVAROXABAN 15 MG TAB PO SCH (08:29)
[2016-12-20] MEDS: SODIUM CHLORIDE 0.9% FLUSH 10 ML FLUSH IV FLUSH SCH ×2 (08:29→21:46)
[2016-12-20] MEDS: MULTIVITAMIN TAB PO SCH (08:29)
--- NOTE | 2016-12-20 10:13 | HHI.PR ---
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 followed in her bedroom and discussed with nurse Miss Ramos she is awaiting for final recommendations by monitoring specialist, no complaint at this time. 12/17/16: Seen in her bedroom as per Palliative care notes, the patient and her Daughter wants to continue with Aggressive Care, Removed Fry cath, started management for Oral Thrush but the patient refuse the Nystatin. 12/18: Stable in her bedroom she will finish her Calory count tomorrow 12/19: Seen in her bedroom, stable in no changes to anterior management, not eating or drinking properly, the prognosis in this condition continue to be poor, discussed with her Daughter Miss Merna Paulson she states she will talk with monitoring specialist and define probable Inpatient Hospice. 12/20: Seen in her bedroom and discussed with nurse not yet her daughter decided about Hospice versus Rehab she was not accepted for Rehab due to that the patient does not want to participate in Physical Therapy, also the Daughter do not want hospice. Palliative care following, no nausea, vomit or diarrhea. Objective Vital Signs Date Time Temp Pulse Resp B/P Pulse Ox O2 Delivery O2 Flow Rate FiO2 12/20/16 08:00 97.2 88 20 123/71 99 12/20/16 04:05 97.8 86 18 136/78 96 12/19/16 23:40 97.7 83 18 114/70 97 12/19/16 20:25 91 12/19/16 20:00 Nasal Cannula 2.00 12/19/16 19:37 97.6 96 18 99/56 100 12/19/16 16:00 97.4 84 20 133/72 99 12/19/16 12:00 97.7 97 20 116/70 94 I/O 12/19/16 12/19/16 12/19/16 12/20/16 12/20/16 12/20/16 07:00 15:00 23:00 07:00 15:00 23:00 Intake Total 535 ml 480 ml 240 ml Balance 535 ml 480 ml 240 ml Intake Oral 120 ml 480 ml 240 ml IV Total 415 ml # Voids 7 3 3 # Bowel Movements 1 1 1 Result Diagram: 12/18/16 0630 12/19/16 0600 Imaging Last Impressions Head CT 12/06/161821 Signed Impressions: Service Date/Time: Tuesday, December 06, 2016 19:06 - CONCLUSION: Normal examination. Ambrocio Le Jr., MD Chest X-Ray 12/06/161821 Signed Impressions: Service Date/Time: Tuesday, December 06, 2016 19:25 - CONCLUSION: No acute disease. Ambrocio eL Jr., MD Cervical Spine CT 12/06/161821 Signed Impressions: Service Date/Time: Tuesday, December 06, 2016 19:06 - CONCLUSION: 1. No fracture or dislocation. 2. Multilevel degenerative changes with patent central canal. Ambrocio Le Jr., MD Knee X-Ray 12/06/16 0000 Signed Impressions: Service Date/Time: Tuesday, December 06, 2016 19:28 - CONCLUSION: Knee arthroplasty. No acute abnormality. Ambrocio Le Jr., MD Hip and Pelvis X-Ray 12/06/16 0000 Signed Impressions: Service Date/Time: Tuesday, December 06, 2016 19:27 - CONCLUSION: No acute disease. Ambrocio Le Jr., MD Procedures No procedures. Other Results Laboratory Tests Test 12/18/16 12/19/16 06:30 06:00 White Blood Count 4.0 TH/MM3 Red Blood Count 2.96 MIL/MM3 Hemoglobin 9.3 GM/DL Hematocrit 26.3 % Mean Corpuscular Volume 88.7 FL Mean Corpuscular Hemoglobin 31.4 PG Mean Corpuscular Hemoglobin 35.4 % Concent Red Cell Distribution Width 17.9 % Platelet Count 91 TH/MM3 Mean Platelet Volume 6.9 FL Neutrophils (%) (Auto) 86.0 % Lymphocytes (%) (Auto) 11.0 % Monocytes (%) (Auto) 2.9 % Eosinophils (%) (Auto) 0.0 % Basophils (%) (Auto) 0.1 % Neutrophils # (Auto) 3.4 TH/MM3 Lymphocytes # (Auto) 0.4 TH/MM3 Monocytes # (Auto) 0.1 TH/MM3 Eosinophils # (Auto) 0.0 TH/MM3 Basophils # (Auto) 0.0 TH/MM3 CBC Comment AUTO DIFF Differential Comment AUTO DIFF CONFIRMED Platelet Estimate LOW Platelet Morphology Comment NORMAL Sodium Level 142 MEQ/L Chloride Level 112 MEQ/L Carbon Dioxide Level 21.2 MEQ/L Anion Gap 9 MEQ/L Blood Urea Nitrogen 18 MG/DL Creatinine 0.21 MG/DL Estimat Glomerular Filtration 327 ML/MIN Rate Random Glucose 81 MG/DL Calcium Level 6.7 MG/DL Protein Corrected Calcium 8.4 MG/DL Total Protein 3.9 GM/DL Potassium Level 4.3 MEQ/L Phosphorus Level 3.0 MG/DL Objective Remarks GENERAL: Well-developed patient, in no apparent distress. CARDIOVASCULAR: Normal rate and regular rhythm without murmurs RESPIRATORY: Good respiratory efforts. Breath sounds equal and clear to auscultation bilaterally. GASTROINTESTINAL: Abdomen soft, non-tender, non-distended. Normal active bowel sounds MUSCULOSKELETAL: Extremities without edema. pt able to use her upper extremities to hold herself when rolled to the right SKIN: stage 3 sacral decub ulcer present, some abrasions also noted around the buttocks. NEURO: Awake and alert. generalized weakness noted. PSYCH: Appropriate mood and affect. Medications and IVs Current Medications Medications (Trade) Dose Ordered Sig/Anette Route Start Time Stop Time Status Last Admin (NS Flush) 2 ml UNSCH PRN IV FLUSH 12/06/16 20:45 12/10/16 01:09 (NS Flush) 2 ml BID IV FLUSH 12/06/16 21:00 12/20/16 08:29 (Narcan Inj) 0.4 mg UNSCH PRN IV 12/06/16 20:45 (Lipitor) 40 mg HS PO 12/07/16 21:00 12/19/16 20:05 (Neurontin) 1,200 mg TID PO 12/07/16 13:00 12/20/16 08:28 (TRENtal SR) 400 mg TID PO 12/07/16 13:00 12/20/16 08:28 (Xarelto) 15 mg DAILY PO 12/07/16 12:00 12/20/16 08:29 (Theragran) 1 tab DAILY PO 12/07/16 12:00 12/20/16 08:29 (Protonix) 20 mg BID PO 12/07/16 12:00 12/20/16 08:28 (Vitamin D3) 5,000 units DAILY PO 12/08/16 09:00 12/20/16 08:28 (Decadron) 4 mg Q12H PO 12/11/16 00:00 12/20/16 00:21 Miscellaneous Information 1 Q3D T-DERMAL 12/17/16 16:00 (Tylenol) 650 mg Q6H PRN PO 12/14/16 18:00 12/18/16 20:48 (Ultracet 37.5-325 Mg) 1 tab Q4H PRN PO 12/15/16 13:00 12/20/16 06:19 (Mycostatin Liq) 5 ml QID SWISH-SWAL 12/17/16 18:00 12/20/16 08:28 A/P Assessment and Plan 1. Severe physical deconditioning, with hip and knee pain from falls Reviewed: hip xray and knee x ray negative for fracture. Vitamin D low. B12, CPK, and TSH within normal limits. -PT eval and treat, patient needs rehab however, pt unable to participate in PT due to pain. -Cont home gabapentin -Rehabilitation medicine, Dr. Chand, evaluated the patient and recommended OT/ PT, mobilize up to stretcher chair with Roho cushion, Turn and reposition every 2 hours to protect skin, her daughter did not wanted narcotics for her Mother, discussed with her today and her mother does not want to Participate in Rehab, difficult to get placement and refused Hospice. Palliative care following. 2. Osteomalacia, Vitamin D level 11, patient with increase weakness -Vitamin D3 5000 units QD, will need recheck in 4 wks outpatient, status post 1 dose of vitamin D 3. Elevated troponin, troponin .06-->.06-->.05, plaque, nonischemic, no chest pain -Monitor tele, and vitals 4. Right foot drop -Multipodis boot ordered 5. Sacral pressure ulcer, stage III -civil engineering specialist following -Turn Q2h 6. Questionable cdiff, patient reports had stool samples tested 3 weeks ago in outpatient lab, she does not know the results -d/c Flagyl 500mg TID -C diff here neg 7. Electrolyte derangement replaced Chronic medical conditions Gerd, HLD, and osteoarthritis: Stable. Continue home medications Discussed with Patient and Nurse, all questions answered to the best of my abilities. Discharge Planning Discharged was Held 12/14/16 calory count in progress from 12/16-12/18 w/ nutrition recs to be provided on . Her Daughter will discuss with Palliative care and will let me know her decision. Palliative care consult in place for assistance w goals of care and pain meds regimen. Pt's insurance is denying authorization for discharge to rehab/SNF as pt not participating in PT Dylan Cassidy MD Dec 20, 2016 10:13
--- NOTE | 2016-12-20 16:43 | HHI.HCPN ---
Reason for visit a. To assist with evaluation and management of symptoms including: Pain, malnutrition b. To assist medical decision maker(s) with: better understanding of current medical conditions; weighing benefits/burdens of medical treatment options; making medical treatment decisions. . Subjective/Interval History In today for follow-up of pain and anorexia. She was seen with her daughter, Merna and Dr. Daniel Sierra, a close family friend, yesterday for discussion regarding possible hospice placement as she was unable to participate in physical therapy due to the severe pain of her rectal wound. Discussed with Merna via telephone and she states that after consideration and discussion with her mother last evening, she wishes to try and pursue aggressive care rather than transition to hospice. Patient is more alert today and per the nurse asked for and ate two full pancakes and also ate the biscuits and gravy brought in by her daughter. Per my discussion with the daughter Merna, the mother asked for mashed potatoes, gravy and chicken last night which the daughter brought in from [employer] fried chicken and patient ate. She did participate with physical and occupational therapy today however remains very weak. Her primary difficulty remains the pain in her rectal wound, making it impossible for her to sit upright, compromising her ability to do extended therapy. . Family/friend interactions Telephone conversation today with daughter, Merna, reveals a different focus from our discussion yesterday. As of yesterday she was considering hospice care center admission however, her goals were not entirely consistent with hospice. Due to her mother's significant rectal pain, she has difficulty participating in therapy and sitting up to eat, impairing her ability to heal and regain strength. Merna informs that her sister, Giovana, is planning a visit from [place] with other family members which she feels may improve her mother's outlook and motivation. Advance Directives Living Will: Never completed Health Care Surrogate: Copy in medical record Durable Power of Bus Inspector: Copy in medical record Advance Directive Specifics Health Care Surrogate(s): Bonnie Bauman . Objective Vital Signs Date Time Temp Pulse Resp B/P Pulse Ox O2 Delivery O2 Flow Rate FiO2 12/20/16 12:00 97.6 91 20 93/62 98 12/20/16 08:00 97.2 88 20 123/71 99 12/20/16 04:05 97.8 86 18 136/78 96 12/19/16 23:40 97.7 83 18 114/70 97 12/19/16 20:25 91 12/19/16 20:00 Nasal Cannula 2.00 12/19/16 19:37 97.6 96 18 99/56 100 12/19/16 16:00 97.4 84 20 133/72 99 Intake & Output 12/20/16 12/20/16 07:00 19:00 Intake Total 240 ml Balance 240 ml Intake Oral 240 ml # Voids 3 # Bowel Movements 1 Physical Exam CONSTITUTIONAL/GENERAL: This is an elderly, weak, depressed-appearing patient, in no apparent distress. TUBES/LINES/DRAINS: heel protection boots, 22-gauge PIV right forearm SKIN: No jaundice. Abrasion right knee. Mid gluteal cleft wound dressed clean dry and intact. Left metatarsal wound. ENT: Clearing erythema on palate. NECK: Trachea midline. Supple, nontender. No palpable thyroid enlargement or nodularity. CARDIOVASCULAR: Regular rate and rhythm without murmurs, gallops, or rubs. No JVD. Peripheral pulses symmetric. RESPIRATORY/CHEST: Symmetric, unlabored respirations. Clear to auscultation. Breath sounds equal bilaterally. No wheezes, rales, or rhonchi. GASTROINTESTINAL: Abdomen soft, non-tender, nondistended. No hepato-splenomegaly , or palpable masses. No guarding. Bowel sounds present. GENITOURINARY: Without palpable bladder distension. MUSCULOSKELETAL: Extremities without clubbing, cyanosis, or edema. Muscle atrophy evident bilaterally. NEUROLOGICAL: Opens eyes to voice, engages in conversation, oriented to self, place, purpose. PSYCHIATRIC: Calm, cooperative Diagnostic Tests Laboratory Laboratory Tests Test 12/18/16 12/19/16 06:30 06:00 White Blood Count 4.0 TH/MM3 (4.0-11.0) Red Blood Count 2.96 MIL/MM3 (4.00-5.30) Hemoglobin 9.3 GM/DL (11.6-15.3) Hematocrit 26.3 % (35.0-46.0) Mean Corpuscular Volume 88.7 FL (80.0-100.0) Mean Corpuscular Hemoglobin 31.4 PG (27.0-34.0) Mean Corpuscular Hemoglobin 35.4 % Concent (32.0-36.0) Red Cell Distribution Width 17.9 % (11.6-17.2) Platelet Count 91 TH/MM3 (150-450) Mean Platelet Volume 6.9 FL (7.0-11.0) Neutrophils (%) (Auto) 86.0 % (16.0-70.0) Lymphocytes (%) (Auto) 11.0 % (9.0-44.0) Monocytes (%) (Auto) 2.9 % (0.0-8.0) Eosinophils (%) (Auto) 0.0 % (0.0-4.0) Basophils (%) (Auto) 0.1 % (0.0-2.0) Neutrophils # (Auto) 3.4 TH/MM3 (1.8-7.7) Lymphocytes # (Auto) 0.4 TH/MM3 (1.0-4.8) Monocytes # (Auto) 0.1 TH/MM3 (0-0.9) Eosinophils # (Auto) 0.0 TH/MM3 (0-0.4) Basophils # (Auto) 0.0 TH/MM3 (0-0.2) CBC Comment AUTO DIFF Differential Comment AUTO DIFF CONFIRMED Platelet Estimate LOW (NORMAL) Platelet Morphology Comment NORMAL (NORMAL) Sodium Level 142 MEQ/L (136-145) Potassium Level 3.3 MEQ/L 4.3 MEQ/L (3.5-5.1) (3.5-5.1) Chloride Level 112 MEQ/L (98-107) Carbon Dioxide Level 21.2 MEQ/L (21.0-32.0) Anion Gap 9 MEQ/L (5-15) Blood Urea Nitrogen 18 MG/DL (7-18) Creatinine 0.21 MG/DL (0.50-1.00) Estimat Glomerular Filtration 327 ML/MIN Rate (>89) Random Glucose 81 MG/DL (74-106) Calcium Level 6.7 MG/DL (8.5-10.1) Protein Corrected Calcium 8.4 MG/DL (8.5-10.1) Phosphorus Level 2.2 MG/DL 3.0 MG/DL (2.5-4.9) (2.5-4.9) Total Protein 3.9 GM/DL (6.4-8.2) Result Diagram: 12/18/16 0630 12/19/16 0600 Imaging Last Impressions Head CT 12/06/16 5402 Signed Impressions: Service Date/Time: Tuesday, December 06, 2016 19:06 - CONCLUSION: Normal examination. Ambrocio Le Jr., MD Chest X-Ray 12/06/161821 Signed Impressions: Service Date/Time: Tuesday, December 06, 2016 19:25 - CONCLUSION: No acute disease. Ambrocio Le Jr., MD Cervical Spine CT 12/06/161821 Signed Impressions: Service Date/Time: Tuesday, December 06, 2016 19:06 - CONCLUSION: 1. No fracture or dislocation. 2. Multilevel degenerative changes with patent central canal. Ambrocio Le Jr., MD Knee X-Ray 12/06/16 0000 Signed Impressions: Service Date/Time: Tuesday, December 06, 2016 19:28 - CONCLUSION: Knee arthroplasty. No acute abnormality. Ambrocio Le Jr., MD Hip and Pelvis X-Ray 12/06/16 0000 Signed Impressions: Service Date/Time: Tuesday, December 06, 2016 19:27 - CONCLUSION: No acute disease. 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 (3) anal cancer January 2016, status post chemotherapy and radiation (4) skin ulcerations/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 Comment: Perianal and presacral (5) depression (6) GERD (7) hyperlipidemia (8) history of DVT right leg (9) hypertension (10) history of nephrolithiasis Symptom Scale: (1) pain 0-10 Scale: Unable to quantify (primarily due to the sciatic nerve injury) Comment: Primarily back/buttock/right leg sciatic nerve pain (2) depression 0-10 Scale: Unable to quantify (no doubt worsened by the chronic pain and bedbound status) (3) anorexia 0-10 Scale: Unable to quantify (exacerbated by pain, fatigue, depression) Pertinent Non-Medical Issues Psychosocial: , was living alone, 2 daughters Spiritual: The patient has a [employer] background, and her spirituality has been important for her. She has appreciated hollock maker visits. Legal: The patient has capacity for decision-making; she has designated her daughter Merna as healthcare surrogate. Ethical issues impacting care: None . Important Contacts Daughter: Merna [phone] . Prognosis This patient has been on a fairly steady decline over the past several months, and that seems to be continuing. She has now become bedbound, has ongoing chronic pain, debility, fatigue, and anorexia, probably all made somewhat worse by her apparent depression and lack of motivation. If this continues, other complications will occur, and this decline will lead to the patient's . At some point in the upcoming weeks or months, she will likely be appropriate for hospice services. . Code Status: Full Code Plan * DNR * DECISION-MAKING: The patient has minimal capacity for decision-making; she has designated her daughter Merna as healthcare surrogate. * GOALS: The daughter wants to pursue rehabilitative therapy at this time. Patient had previously not been participating in therapy however did have improved participation today. SYMPTOMS: * Pain: She has pain with movement and has been unable to participate in therapy. Daughter had previously been unwilling to use narcotics however is now amenable to low-dose hydrocodone if it will help her mother participate in therapy towards rehabilitation placement. Ultracet has been in adequate pain relief to allow participation in therapy. Would recommend [place] 5 mg before therapy and when necessary at bedtime. Would also recommend lidocaine cream/ gel to rectal wound, if okay with wound care, to minimize narcotic use. If patient continues to participate in therapy could ask SNF to reevaluate for rehabilitation. * Anorexia: Her appetite has improved today, less mouth soreness after several days of nystatin. Would consider nutritional consult and appetite stimulant such as Megace or Remeron. * Depression: This appears to be both situational and related to her level of uncontrolled pain from her rectal wound. Would consider use of a dual purpose medication such as Cymbalta for both pain and depression. Palliative care will continue to follow the patient during hospital course as condition evolves, to assist patient/decision-maker with understanding of their medical conditions, weighing benefits/burdens of treatment options, for clarification of goals of treatment. Additionally will assist with any symptoms of palliative concern. . Attestation To help prompt me to consider important information that might be impacting today's encounter and assessment, information from prior notes written by myself or my colleagues may have been "brought forward" into today's note. My signature on this note, however, is an attestation that I personally performed the exam, history, and/or decision-making noted today, and, unless otherwise indicated, the interactions with patient, family, and staff as well as the review of records all occurred today. I also attest that the listed assessment and stated plan reflect my best clinical judgment today based on the combination of historical information, prior notes, and today's exam/ interactions. When time spent is documented, it refers only to time spent today by the signer, or if indicated, combined time spent today by collaborating physician/nurse practitioner. Aleksandra Ventura Dec 20, 2016 16:43
[2016-12-20] MEDS: ATORVASTATIN 40 MG TAB PO SCH (21:46)
[2016-12-21] MEDS: DEXAMETHASONE 4 MG TAB PO SCH ×2 (00:38→12:53)
[2016-12-21 03:47] VITALS: BP 124/70; PULSE 86; RESP 18; TEMP 97.9; O2SAT 100
[2016-12-21 08:00] VITALS: BP 118/69; PULSE 75; PULSE 89; RESP 20; TEMP 97.4; O2SAT 100
[2016-12-21] MEDS: PANTOPRAZOLE SOD 20 MG DELAYED RELEASE TAB PO SCH ×2 (09:10→21:48)
[2016-12-21] MEDS: CHOLECALCIFEROL (VIT D3) 5000 UNIT CAP PO SCH (09:10)
[2016-12-21] MEDS: RIVAROXABAN 15 MG TAB PO SCH (09:10)
[2016-12-21] MEDS: NYSTATIN SUSP 500,000 U/5 ML CUP SWISH-SWAL SCH ×4 (09:10→21:47)
[2016-12-21] MEDS: MULTIVITAMIN TAB PO SCH (09:10)
[2016-12-21] MEDS: PENTOXIFYLLINE 400 MG CONTROLLED RELEASE TAB PO SCH ×3 (09:10→18:00)
[2016-12-21] MEDS: GABAPENTIN 400 MG CAP PO SCH ×3 (09:10→19:23)
[2016-12-21] MEDS: SODIUM CHLORIDE 0.9% FLUSH 10 ML FLUSH IV FLUSH SCH ×2 (09:11→21:48)
[2016-12-21 12:00] VITALS: BP 110/63; PULSE 94; RESP 16; TEMP 97.3; O2SAT 99
[2016-12-21 16:00] VITALS: BP 120/58; PULSE 87; RESP 20; TEMP 97.4; O2SAT 97
--- NOTE | 2016-12-21 17:10 | HHI.PR ---
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 followed in her bedroom and discussed with nurse Miss Ramos she is awaiting for final recommendations by operation specialist, no complaint at this time. 12/17/16: Seen in her bedroom as per Palliative care notes, the patient and her Daughter wants to continue with Aggressive Care, Removed Fry cath, started management for Oral Thrush but the patient refuse the Nystatin. 12/18: Stable in her bedroom she will finish her Calory count tomorrow 12/19: Seen in her bedroom, stable in no changes to anterior management, not eating or drinking properly, the prognosis in this condition continue to be poor, discussed with her Daughter Miss Merna Paulson she states she will talk with operation specialist and define probable Inpatient Hospice. 12/20: Seen in her bedroom and discussed with nurse not yet her daughter decided about Hospice versus Rehab she was not accepted for Rehab due to that the patient does not want to participate in Physical Therapy, also the Daughter do not want hospice. Palliative care following, no nausea, vomit or diarrhea. 12/21: No changes to anterior management, still awaiting for her Daughter to decide in Hospice, the patient do not want to cooperate with Rehab management. no nausea, vomit or diarrhea, more somnolent than yesterday. Objective Vital Signs Date Time Temp Pulse Resp B/P Pulse Ox O2 Delivery O2 Flow Rate FiO2 12/21/16 12:00 97.3 94 16 110/63 99 12/21/16 08:00 97.4 89 20 118/69 100 12/21/16 03:47 97.9 86 18 124/70 100 12/20/16 23:43 97.9 88 18 118/75 99 12/20/16 20:00 82 12/20/16 19:45 Nasal Cannula 2.00 Humidified 12/20/16 19:32 98.1 91 18 125/75 99 I/O 12/20/16 12/20/16 12/20/16 12/21/16 12/21/16 12/21/16 07:00 15:00 23:00 07:00 15:00 23:00 Intake Total 480 ml 120 ml 60 ml Balance 480 ml 120 ml 60 ml Intake Oral 480 ml 120 ml 60 ml # Voids 3 3 6 # Bowel Movements 3 0 0 Result Diagram: 12/18/16 0630 12/19/16 0600 Imaging Last Impressions Head CT 12/06/161821 Signed Impressions: Service Date/Time: Tuesday, December 06, 2016 19:06 - CONCLUSION: Normal examination. Ambrocio Le Jr., MD Chest X-Ray 12/06/161821 Signed Impressions: Service Date/Time: Tuesday, December 06, 2016 19:25 - CONCLUSION: No acute disease. Ambrocio Le Jr., MD Cervical Spine CT 12/06/161821 Signed Impressions: Service Date/Time: Tuesday, December 06, 2016 19:06 - CONCLUSION: 1. No fracture or dislocation. 2. Multilevel degenerative changes with patent central canal. Ambrocio Le Jr., MD Knee X-Ray 12/06/16 0000 Signed Impressions: Service Date/Time: Tuesday, December 06, 2016 19:28 - CONCLUSION: Knee arthroplasty. No acute abnormality. Ambrocio Le Jr., MD Hip and Pelvis X-Ray 12/06/16 0000 Signed Impressions: Service Date/Time: Tuesday, December 06, 2016 19:27 - CONCLUSION: No acute disease. Ambrocio Le Jr., MD Procedures No procedures. Other Results Laboratory Tests Test 12/18/16 12/19/16 06:30 06:00 White Blood Count 4.0 TH/MM3 Red Blood Count 2.96 MIL/MM3 Hemoglobin 9.3 GM/DL Hematocrit 26.3 % Mean Corpuscular Volume 88.7 FL Mean Corpuscular Hemoglobin 31.4 PG Mean Corpuscular Hemoglobin 35.4 % Concent Red Cell Distribution Width 17.9 % Platelet Count 91 TH/MM3 Mean Platelet Volume 6.9 FL Neutrophils (%) (Auto) 86.0 % Lymphocytes (%) (Auto) 11.0 % Monocytes (%) (Auto) 2.9 % Eosinophils (%) (Auto) 0.0 % Basophils (%) (Auto) 0.1 % Neutrophils # (Auto) 3.4 TH/MM3 Lymphocytes # (Auto) 0.4 TH/MM3 Monocytes # (Auto) 0.1 TH/MM3 Eosinophils # (Auto) 0.0 TH/MM3 Basophils # (Auto) 0.0 TH/MM3 CBC Comment AUTO DIFF Differential Comment AUTO DIFF CONFIRMED Platelet Estimate LOW Platelet Morphology Comment NORMAL Sodium Level 142 MEQ/L Chloride Level 112 MEQ/L Carbon Dioxide Level 21.2 MEQ/L Anion Gap 9 MEQ/L Blood Urea Nitrogen 18 MG/DL Creatinine 0.21 MG/DL Estimat Glomerular Filtration 327 ML/MIN Rate Random Glucose 81 MG/DL Calcium Level 6.7 MG/DL Protein Corrected Calcium 8.4 MG/DL Total Protein 3.9 GM/DL Potassium Level 4.3 MEQ/L Phosphorus Level 3.0 MG/DL Objective Remarks GENERAL: Well-developed patient, in no apparent distress. CARDIOVASCULAR: Normal rate and regular rhythm without murmurs RESPIRATORY: Good respiratory efforts. Breath sounds equal and clear to auscultation bilaterally. GASTROINTESTINAL: Abdomen soft, non-tender, non-distended. Normal active bowel sounds MUSCULOSKELETAL: Extremities without edema. pt able to use her upper extremities to hold herself when rolled to the right SKIN: stage 3 sacral decub ulcer present, some abrasions also noted around the buttocks. NEURO: Awake and alert. generalized weakness noted. PSYCH: Appropriate mood and affect. Medications and IVs Current Medications Medications (Trade) Dose Ordered Sig/Anette Route Start Time Stop Time Status Last Admin (NS Flush) 2 ml UNSCH PRN IV FLUSH 12/06/16 20:45 12/10/16 01:09 (NS Flush) 2 ml BID IV FLUSH 12/06/16 21:00 12/21/16 09:11 (Narcan Inj) 0.4 mg UNSCH PRN IV 12/06/16 20:45 (Lipitor) 40 mg HS PO 12/07/16 21:00 12/20/16 21:46 (Neurontin) 1,200 mg TID PO 12/07/16 13:00 12/21/16 12:54 (TRENtal SR) 400 mg TID PO 12/07/16 13:00 12/21/16 13:02 (Xarelto) 15 mg DAILY PO 12/07/16 12:00 12/21/16 09:10 (Theragran) 1 tab DAILY PO 12/07/16 12:00 12/21/16 09:10 (Protonix) 20 mg BID PO 12/07/16 12:00 12/21/16 09:10 (Vitamin D3) 5,000 units DAILY PO 12/08/16 09:00 12/21/16 09:10 (Decadron) 4 mg Q12H PO 12/11/16 00:00 12/21/16 12:53 Miscellaneous Information 1 Q3D T-DERMAL 12/17/16 16:00 (Tylenol) 650 mg Q6H PRN PO 12/14/16 18:00 12/18/16 20:48 (Ultracet 37.5-325 Mg) 1 tab Q4H PRN PO 12/15/16 13:00 12/20/16 06:19 (Mycostatin Liq) 5 ml QID SWISH-SWAL 12/17/16 18:00 12/21/16 13:02 A/P Assessment and Plan 1. Severe physical deconditioning, with hip and knee pain from falls Reviewed: hip xray and knee x ray negative for fracture. Vitamin D low. B12, CPK, and TSH within normal limits. -PT eval and treat, patient needs rehab however, pt unable to participate in PT due to pain. -Cont home gabapentin -Rehabilitation medicine, Dr. Chand, evaluated the patient and recommended OT/ PT, mobilize up to stretcher chair with Roho cushion, Turn and reposition every 2 hours to protect skin, her daughter did not wanted narcotics for her Mother, discussed with her today and her mother does not want to Participate in Rehab, difficult to get placement and refused Hospice. Palliative care following. 2. Osteomalacia, Vitamin D level 11, patient with increase weakness -Vitamin D3 5000 units QD, will need recheck in 4 wks outpatient, status post 1 dose of vitamin D 3. Elevated troponin, troponin .06-->.06-->.05, plaque, nonischemic, no chest pain -Monitor tele, and vitals 4. Right foot drop -Multipodis boot ordered 5. Sacral pressure ulcer, stage III -pad machine offbearer following -Turn Q2h 6. Questionable cdiff, patient reports had stool samples tested 3 weeks ago in outpatient lab, she does not know the results -d/c Flagyl 500mg TID -C diff here neg 7. Electrolyte derangement replaced Chronic medical conditions Gerd, HLD, and osteoarthritis: Stable. Continue home medications Discussed with Patient and Nurse, all questions answered to the best of my abilities. No changes to anterior assessment. Discharge Planning Discharged was Held 12/14/16 calory count in progress from 12/16-12/18 w/ nutrition recs to be provided on . Her Daughter will discuss with Palliative care and will let me know her decision. Palliative care consult in place for assistance w goals of care and pain meds regimen. Pt's insurance is denying authorization for discharge to rehab/SNF as pt not participating in PT Dylan Cassidy MD Dec 21, 2016 17:10
[2016-12-21 20:00] VITALS: BP 97/61; PULSE 99; RESP 16; TEMP 97.1; O2SAT 96
[2016-12-21] MEDS: ATORVASTATIN 40 MG TAB PO SCH (21:48)
[2016-12-21] MEDS: ACETAMINOPHEN 325 MG TAB PO PRN (21:55)
[2016-12-22] VITALS: BP 104/62; PULSE 99; RESP 16; TEMP 97.3; O2SAT 97
[2016-12-22] MEDS: DEXAMETHASONE 4 MG TAB PO SCH ×2 (01:00→11:53)
[2016-12-22 05:00] VITALS: BP 118/67; PULSE 79; RESP 16; TEMP 97.2; O2SAT 100
[2016-12-22 08:00] VITALS: BP 111/51; PULSE 87; RESP 16; TEMP 97.3; O2SAT 100
[2016-12-22] MEDS: PANTOPRAZOLE SOD 20 MG DELAYED RELEASE TAB PO SCH ×2 (08:20→21:52)
[2016-12-22] MEDS: RIVAROXABAN 15 MG TAB PO SCH (08:20)
[2016-12-22] MEDS: MULTIVITAMIN TAB PO SCH (08:20)
[2016-12-22] MEDS: CHOLECALCIFEROL (VIT D3) 5000 UNIT CAP PO SCH (08:20)
[2016-12-22] MEDS: SODIUM CHLORIDE 0.9% FLUSH 10 ML FLUSH IV FLUSH SCH ×2 (08:20→21:52)
[2016-12-22] MEDS: NYSTATIN SUSP 500,000 U/5 ML CUP SWISH-SWAL SCH ×4 (08:20→21:52)
[2016-12-22] MEDS: GABAPENTIN 400 MG CAP PO SCH ×3 (08:20→17:14)
[2016-12-22] MEDS: PENTOXIFYLLINE 400 MG CONTROLLED RELEASE TAB PO SCH ×3 (08:20→17:14)
--- NOTE | 2016-12-22 08:34 | HHI.PR ---
Subjective Remarks Patient in bed. Says she is not eating much . No pain in her belly. She has no pain at this time. Poor historian. Not doing PT Objective Vitals Vital Signs Date Time Temp Pulse Resp B/P Pulse Ox O2 Delivery O2 Flow Rate FiO2 12/22/16 05:00 97.2 79 16 118/67 100 12/22/16 00:00 97.3 99 16 104/62 97 12/21/16 21:45 Nasal Cannula 2.00 Humidified 12/21/16 20:00 97.1 99 16 97/61 96 12/21/16 16:00 97.4 87 20 120/58 97 12/21/16 12:00 97.3 94 16 110/63 99 I/O 12/21/16 12/21/16 12/21/16 12/22/16 12/22/16 12/22/16 07:00 15:00 23:00 07:00 15:00 23:00 Intake Total 60 ml 240 ml 2 ml Balance 60 ml 240 ml 2 ml Intake Oral 60 ml 240 ml IV Total 2 ml # Voids 6 3 3 # Bowel Movements 0 2 0 Result Diagram: 12/18/1630 12/19/16 0600 Imaging Last Impressions Head CT 12/06/161821 Signed Impressions: Service Date/Time: Tuesday, December 06, 2016 19:06 - CONCLUSION: Normal examination. Ambrocio Le Jr., MD Chest X-Ray 12/06/161821 Signed Impressions: Service Date/Time: Tuesday, December 06, 2016 19:25 - CONCLUSION: No acute disease. Ambrocio Le Jr., MD Cervical Spine CT 12/06/161821 Signed Impressions: Service Date/Time: Tuesday, December 06, 2016 19:06 - CONCLUSION: 1. No fracture or dislocation. 2. Multilevel degenerative changes with patent central canal. Ambrocio Le Jr., MD Knee X-Ray 12/06/16 0000 Signed Impressions: Service Date/Time: Tuesday, December 06, 2016 19:28 - CONCLUSION: Knee arthroplasty. No acute abnormality. Ambrocio Le Jr., MD Hip and Pelvis X-Ray 12/06/16 0000 Signed Impressions: Service Date/Time: Tuesday, December 06, 2016 19:27 - CONCLUSION: No acute disease. Ambrocio Le Jr., MD Objective Remarks GENERAL: Well-developed patient, in no apparent distress. CARDIOVASCULAR: Normal rate and regular rhythm without murmurs RESPIRATORY: Good respiratory efforts. Breath sounds equal and clear to auscultation bilaterally. GASTROINTESTINAL: Abdomen soft, non-tender, non-distended. Normal active bowel sounds MUSCULOSKELETAL: Extremities without edema. pt able to use her upper extremities to hold herself when rolled to the right SKIN: stage 3 sacral decub ulcer present, some abrasions also noted around the buttocks. NEURO: Awake and alert. generalized weakness noted. PSYCH: Appropriate mood and affect. Procedures none A/P Problem List: (1) Physical deconditioning ICD Code: R53.81 Status: Acute (2) Hip pain, left ICD Code: M25.552 Status: Acute (3) Osteomalacia ICD Code: M83.9 Status: Acute Assessment and Plan Severe physical deconditioning, with hip and knee pain from falls Reviewed: hip xray and knee x ray negative for fracture. Vitamin D low. B12, CPK, and TSH within normal limits. -PT eval and treat, patient needs rehab however, pt unable to participate in PT due to pain. -Cont home gabapentin -Rehabilitation medicine, Dr. Chand, evaluated the patient and recommended OT/ PT, mobilize up to stretcher chair with Roho cushion, Turn and reposition every 2 hours to protect skin, her daughter did not wanted narcotics for her Mother, her mother does not want to Participate in Rehab, difficult to get placement and refused Hospice. Palliative care following. Osteomalacia, Vitamin D level 11, patient with increase weakness -Vitamin D3 5000 units QD, will need recheck in 4 wks outpatient, status post 1 dose of vitamin D Elevated troponin, troponin .06-->.06-->.05, plaque, nonischemic, no chest pain -Monitor tele, and vitals Right foot drop -Multipodis boot ordered Sacral pressure ulcer, stage III -dye colorist dyer following -Turn Q2h. Lidocaine jelly for pain Questionable cdiff, patient reports had stool samples tested 3 weeks ago in outpatient lab, she does not know the results -d/c Flagyl 500mg TID -C diff here neg Electrolyte derangement replaced Chronic medical conditions Gerd, HLD, and osteoarthritis: Stable. Continue home medications Discussed with Patient and Nurse, all questions answered to the best of my abilities. No changes to anterior assessment. Discharge Planning Discharged was Held 12/14/16 calory count in progress from 12/16-12/18 w/ nutrition recs to be provided on . Her Daughter will discuss with Palliative care and will let me know her decision. Palliative care consult in place for assistance w goals of care and pain meds regimen. Pt's insurance is denying authorization for discharge to rehab/SNF as pt not participating in PT Rachel Andrade MD Dec 22, 2016 08:34
[2016-12-22 12:00] VITALS: BP 127/66; PULSE 83; RESP 18; TEMP 97.5; O2SAT 98
[2016-12-22] MEDS: traMADol/ACETAMINOPHEN 37.5/325 1 TAB PO PRN ×2 (12:01→17:17)
[2016-12-22 16:00] VITALS: BP 125/73; PULSE 88; RESP 16; TEMP 97.3; O2SAT 97
[2016-12-22] MEDS ORDERED: LIDOCAINE 2% JELLY 5 ML TUBE TOPICAL PRN (17:00)
[2016-12-22 20:15] VITALS: BP 125/67; PULSE 83; RESP 16; TEMP 97.7; O2SAT 100
[2016-12-22] MEDS: ATORVASTATIN 40 MG TAB PO SCH (21:52)
[2016-12-23] VITALS (7 sets, daily range): BP systolic 97–120; BP diastolic 53–64; PULSE 71–88; RESP 16–20; TEMP 97.3–98; O2SAT 96–100
[2016-12-23] MEDS: DEXAMETHASONE 4 MG TAB PO SCH ×2 (00:46→14:11)
[2016-12-23] MEDS: traMADol/ACETAMINOPHEN 37.5/325 1 TAB PO PRN ×2 (00:48→09:42)
[2016-12-23] MEDS: SODIUM CHLORIDE 0.9% FLUSH 10 ML FLUSH IV FLUSH SCH ×2 (09:00→20:34)
--- NOTE | 2016-12-23 09:26 | HHI.PR ---
Subjective Remarks Patient in bed. Not able to eat much has, sores in her mouth, add magic wash. No n/v/d/c. Not much appetite. Family at bedside. Family refusing hospice. However patient is not able to move legs much and she was not out of bed. Objective Vitals Vital Signs Date Time Temp Pulse Resp B/P Pulse Ox O2 Delivery O2 Flow Rate FiO2 12/23/16 03:58 97.8 75 16 102/59 98 12/23/16 00:34 97.4 87 16 105/64 100 12/23/16 00:00 100 Room Air 12/22/16 20:30 Nasal Cannula 2.00 Humidified 12/22/16 20:15 97.7 83 16 125/67 100 12/22/16 16:00 97.3 88 16 125/73 97 12/22/16 12:00 97.5 83 18 127/66 98 I/O 12/22/16 12/22/16 12/22/16 12/23/16 12/23/16 12/23/16 07:00 15:00 23:00 07:00 15:00 23:00 Intake Total 480 ml 720 ml 0 ml Balance 480 ml 720 ml 0 ml Intake Oral 480 ml 720 ml 0 ml # Voids 3 4 3 4 # Bowel Movements 0 3 2 0 Result Diagram: 12/19/16 0600 Imaging Last Impressions Head CT 12/06/161821 Signed Impressions: Service Date/Time: Tuesday, December 06, 2016 19:06 - CONCLUSION: Normal examination. Ambrocio Le Jr., MD Chest X-Ray 12/06/161821 Signed Impressions: Service Date/Time: Tuesday, December 06, 2016 19:25 - CONCLUSION: No acute disease. Ambrocio Le Jr., MD Cervical Spine CT 12/06/161821 Signed Impressions: Service Date/Time: Tuesday, December 06, 2016 19:06 - CONCLUSION: 1. No fracture or dislocation. 2. Multilevel degenerative changes with patent central canal. Ambrocio Le Jr., MD Knee X-Ray 12/06/16 0000 Signed Impressions: Service Date/Time: Tuesday, December 06, 2016 19:28 - CONCLUSION: Knee arthroplasty. No acute abnormality. Ambrocio Le Jr., MD Hip and Pelvis X-Ray 12/06/16 0000 Signed Impressions: Service Date/Time: Tuesday, December 06, 2016 19:27 - CONCLUSION: No acute disease. Ambrocio Le Jr., MD Objective Remarks GENERAL: Well-developed patient, in no apparent distress. CARDIOVASCULAR: Normal rate and regular rhythm without murmurs OROPHARYNGEAL: Mouth with thrush, ulcerated lesions. RESPIRATORY: Good respiratory efforts. Breath sounds equal and clear to auscultation bilaterally. GASTROINTESTINAL: Abdomen soft, non-tender, non-distended. Normal active bowel sounds MUSCULOSKELETAL: Extremities without edema. pt able to use her upper extremities to hold herself when rolled to the right SKIN: stage 3 sacral decub ulcer present, some abrasions also noted around the buttocks. NEURO: Awake and alert. generalized weakness noted. PSYCH: Appropriate mood and affect. Procedures none A/P Problem List: (1) Physical deconditioning ICD Code: R53.81 Status: Acute (2) Hip pain, left ICD Code: M25.552 Status: Acute (3) Osteomalacia ICD Code: M83.9 Status: Acute Assessment and Plan Severe physical deconditioning, with hip and knee pain from falls Reviewed: hip xray and knee x ray negative for fracture. Vitamin D low. B12, CPK, and TSH within normal limits. -PT eval and treat, patient needs rehab however, pt unable to participate in PT due to pain. -Cont home gabapentin -Rehabilitation medicine, Dr. Chand, evaluated the patient and recommended OT/ PT, mobilize up to stretcher chair with Roho cushion, Turn and reposition every 2 hours to protect skin, her daughter did not wanted narcotics for her Mother, her mother does not want to Participate in Rehab, difficult to get placement and refused Hospice. Palliative care following. Osteomalacia, Vitamin D level 11, patient with increase weakness -Vitamin D3 5000 units QD, will need recheck in 4 wks outpatient, status post 1 dose of vitamin D Elevated troponin, troponin .06-->.06-->.05, plaque, nonischemic, no chest pain -Monitor tele, and vitals Right foot drop -Multipodis boot ordered Sacral pressure ulcer, stage III -aircraft painter following -Turn Q2h. Lidocaine jelly for pain Questionable cdiff, patient reports had stool samples tested 3 weeks ago in outpatient lab, she does not know the results -d/c Flagyl 500mg TID -C diff here neg Mouth thrush and sores, magic wash Electrolyte derangement replaced Chronic medical conditions Gerd, HLD, and osteoarthritis: Stable. Continue home medications Discussed with patient, nurse, family at bedside, all questions answered to the best of my abilities. No changes to anterior assessment. Discharge Planning Discharged was Held 12/14/16 calory count in progress from 12/16-12/18 w/ nutrition recs to be provided on . Her Daughter will discuss with Palliative care and will let me know her decision. Palliative care consult in place for assistance w goals of care and pain meds regimen. Pt's insurance is denying authorization for discharge to rehab/SNF as pt not participating in PT Rachel Andrade MD Dec 23, 2016 09:26
--- NOTE | 2016-12-23 09:28 | HHI.DS ---
Discharge Summary Admission Date Dec 07, 2016 at 18:07 Discharge Date: Dec 25, 2016 Admitting Diagnosis generalized weakness, elevated troponin, inability to ambulate (1) Physical deconditioning ICD Code: R53.81 (2) Hip pain, left ICD Code: M25.552 Diagnosis: Principal (3) Osteomalacia ICD Code: M83.9 Diagnosis: Principal Procedures none Brief History - From Admission 76 y/o female with a history of anal cancer (post chemo and radiation 05/25/16) , htn, osteoarthritis, DVT (unknown time), and hyperlipidemia presented to the ED with complaints of increased weakness and pain to right knee and left hip. She is a poor historian when discussing the time line of her chemo, radiation, and names of her Doctors and medications she is taking. She lives alone and states her daughter comes every morning and she knows her medications and history. Tried contacting Daughter at home, no answer. Patient states she has been wheelchair bound for the last year, and the last week she has fallen twice out of her wheel chair when trying to transfer to the bed. She denies hitting her head.The last fall was on Sunday and she landed on her right knee and left hip. There is a noticeable hematoma to her left hip. Denies any chest pain, sob , or dizziness now or prior to her falling. She was most recently seen outpatient by Dr. Pleitez for increased weakness and she recommended outpatient PT for neurofacilitation, transfer, and gait training.and possible use of an AFB or KAFO brace. Patient is follow by Dr. Rojas who thinks this is sciatic related. Patient did fail PT at some point with home health. On 11/24/16 Neurology recommended decrease of gabapentin to decrease sedation. Over the last 6 months she has underwent multiple imaging outpatient. Lumbar spine MRI 11/01/16 showed disc bulges L1-2, L2-3, L3-4 with facet hypertrophy and right foraminal narrowing , L4-5 disc bulge with left foraminal narrowing and disc herniation and osteophytic complex L5-S1 abutting the S1 nerve root and lateral recess with left foraminal narrowing impinging the L5 nerve root. Cervical spine MRI 11/01/16 showed disc bulge C4-5 with left facet hypertrophy with foraminal narrowing C5 nerve root, disc herniation C5-6 and C6-7 compressing ventral thecal sac without neural impingement. Right thigh MRI without contrast 10/06/16 showed worsening tendinosis/myositis upper thigh musculature primarily adductors especially brevis and longus. potential insertional tendinosis/partial tearing of distal adductors at the level of the mid/upper thigh. Radiation induced changes would be in differential. MRI lumbar spine 08/02/16 showed levoscoliosis with degenerative changes L1-2 through L3-4,facet hypertrophy right L2-3 and bilaterally L3-4 and L4-5 and left disc bulge L5-S1 abutting the left L5 nerve root. MRI right hip 08/02/16 showed mild to moderate right hip osteoarthritis. MRI of pelvis 11/06/16 showed intramuscular signal abnormality and edema right gluteal musculature as well and obturator externus, internus and piriformis muscle possible myositis or treatment related changes from rectal carcinoma. EMG testing 11/14/[address] Donald Rojas and the impression was sensory axonal neuropathy, motor neuropathy left side, marked denervation right sciatic nerve territory with no evidence of radiculopathy. Likely direct sciatic nerve injury. CBC/BMP: 12/19/16 0600 Imaging Last Impressions Head CT 12/06/161821 Signed Impressions: Service Date/Time: Tuesday, December 06, 2016 19:06 - CONCLUSION: Normal examination. Ambrocio Le Jr., MD Chest X-Ray 12/06/161821 Signed Impressions: Service Date/Time: Tuesday, December 06, 2016 19:25 - CONCLUSION: No acute disease. Ambrocio Le Jr., MD Cervical Spine CT 12/06/161821 Signed Impressions: Service Date/Time: Tuesday, December 06, 2016 19:06 - CONCLUSION: 1. No fracture or dislocation. 2. Multilevel degenerative changes with patent central canal. Ambrocio Le Jr., MD Knee X-Ray 12/06/16 0000 Signed Impressions: Service Date/Time: Tuesday, December 06, 2016 19:28 - CONCLUSION: Knee arthroplasty. No acute abnormality. Ambrocio Le Jr., MD Hip and Pelvis X-Ray 12/06/16 0000 Signed Impressions: Service Date/Time: Tuesday, December 06, 2016 19:27 - CONCLUSION: No acute disease. Ambrocio Le Jr., MD PE at Discharge GENERAL: Well-developed patient, in no apparent distress. CARDIOVASCULAR: Normal rate and regular rhythm without murmurs RESPIRATORY: Good respiratory efforts. Breath sounds equal and clear to auscultation bilaterally. GASTROINTESTINAL: Abdomen soft, non-tender, non-distended. Normal active bowel sounds MUSCULOSKELETAL: Extremities without edema. pt able to use her upper extremities to hold herself when rolled to the right SKIN: stage 3 sacral decub ulcer present, some abrasions also noted around the buttocks. NEURO: Awake and alert. generalized weakness noted. PSYCH: Appropriate mood and affect. Hospital Course Severe physical deconditioning, with hip and knee pain from falls Reviewed: hip xray and knee x ray negative for fracture. Vitamin D low. B12, CPK, and TSH within normal limits. -PT eval and treat, patient needs rehab however, pt unable to participate in PT due to pain. -Cont home gabapentin -Rehabilitation medicine, Dr. Chand, evaluated the patient and recommended OT/ PT, mobilize up to stretcher chair with Roho cushion, Turn and reposition every 2 hours to protect skin, her daughter did not wanted narcotics for her Mother, her mother does not want to Participate in Rehab, difficult to get placement and refused Hospice. Palliative care following. Osteomalacia, Vitamin D level 11, patient with increase weakness -Vitamin D3 5000 units QD, will need recheck in 4 wks outpatient, status post 1 dose of vitamin D Elevated troponin, troponin .06-->.06-->.05, plaque, nonischemic, no chest pain -Monitor tele, and vitals Right foot drop -Multipodis boot ordered Sacral pressure ulcer, stage III -senior policy advisor following -Turn Q2h. Lidocaine jelly for pain Questionable cdiff, patient reports had stool samples tested 3 weeks ago in outpatient lab, she does not know the results -d/c Flagyl 500mg TID -C diff here neg Mouth thrush and sores, magic wash Electrolyte derangement replaced Chronic medical conditions Gerd, HLD, and osteoarthritis: Stable. Continue home medications Discussed with patient, nurse, family at bedside, all questions answered to the best of my abilities. No changes to anterior assessment. Discharge Planning Discharged was Held 12/14/16 calory count in progress from 12/16-12/18 w/ nutrition recs to be provided on . Her Daughter will discuss with Palliative care and will let me know her decision. Palliative care consult in place for assistance w goals of care and pain meds regimen. Pt's insurance is denying authorization for discharge to rehab/SNF as pt not participating in PT Pt Condition on Discharge: Deteriorating Discharge Disposition: Hospice/Med Facility Discharge Instructions DIET: Follow Instructions for: Heart Healthy Diet Activities you can perform: Regular-No Restrictions Follow up Referrals: PCP Follow-up - 1 Week Physical Medicine & Rehab - 2 Weeks Changed Medications: Dexamethasone (Dexamethasone) 4 Mg Tab 4 MG PO DIRECTED 1 tab BID for 5 days, then 1 tab daily for 3 days #13 Ref 0 TAB (Changed from: Q6HR; 120) Continued Medications: Atorvastatin (Atorvastatin) 40 Mg Tab 40 MG PO HS Cholesterol Management #30 Ref 0 TAB Gabapentin (Gabapentin) 600 Mg Tab 1200 MG PO TID #90 Ref 0 TAB Multiple Vitamin (Multiple Vitamin) 1 Tab 1 TAB PO DAILY Nutritional Supplement Ref 0 TAB Omeprazole (Omeprazole) 20 Mg Tab 20 MG PO BID #30 Ref 0 TAB Pentoxifylline ER (Pentoxifylline ER) 400 Mg Tab 400 MG PO TID Intermittent claudication #90 Ref 0 TAB Rivaroxaban (Xarelto) 15 Mg Tab 15 MG PO DAILY Blood Clot Prevention Ref 0 TAB Vitamin E (E-400) 400 Unit Cap 1 TAB PO BID Discontinued Medications: Fentanyl Patch 72 HR (Duragesic Patch 72 HR) 25 Mcg/Hr Patch 25 MCG T-DERMAL Q72H Remove old patch when new one placed. Pain Management #10 Ref 0 PATCH Hydrocodone-Acetaminophen ([place]) 7.5-325 mg Tab 1 TAB PO Q4-6H PRN PAIN #30 Ref 0 TAB Metronidazole (Metronidazole) 500 Mg Tab 500 MG PO TID Infection Ref 0 TAB Tramadol (Tramadol) 50 Mg Tab 50 MG PO Q8HR PRN PAIN #25 Ref 0 TAB Rachel Andrade MD Dec 23, 2016 09:28
[2016-12-23] MEDS: NYSTATIN SUSP 500,000 U/5 ML CUP SWISH-SWAL SCH (09:41)
[2016-12-23] MEDS: GABAPENTIN 400 MG CAP PO SCH ×3 (09:41→16:49)
[2016-12-23] MEDS: CHOLECALCIFEROL (VIT D3) 5000 UNIT CAP PO SCH (09:42)
[2016-12-23] MEDS: MULTIVITAMIN TAB PO SCH (09:42)
[2016-12-23] MEDS: PANTOPRAZOLE SOD 20 MG DELAYED RELEASE TAB PO SCH ×2 (09:42→20:34)
[2016-12-23] MEDS: RIVAROXABAN 15 MG TAB PO SCH (09:42)
[2016-12-23] MEDS: PENTOXIFYLLINE 400 MG CONTROLLED RELEASE TAB PO SCH ×3 (09:42→16:49)
[2016-12-23] MEDS: NYSTAT/DIPHENHY/LIDO MOUTHWASH (Adult) 120ML SWISH-SWAL SCH ×3 (13:00→20:34)
[2016-12-23] MEDS: REMOVE OLD DURAGESIC (FENTANYL) PATCH T-DERMAL SCH (16:00)
[2016-12-23] MEDS: FLUCONAZOLE 100 MG PREMIX BAG 50 ML IV SCH (16:23)
--- NOTE | 2016-12-23 16:49 | MB ---
cc: PREM ANDERSEN MD DATE OF CONSULTATION 12/23/16 [address] Ortiz REASON FOR REFERRAL Dysphagia and oral thrush. HISTORY OF PRESENT ILLNESS Thank you for the consultation. A 76-year-old lady who has some cancer. The patient getting chemotherapy and had radiation therapy. The patient has been feeling weak. She completed her radiation in mid May, the chemotherapy in July. The patient continued to be weak and she developed mucositis and I was asked to see her because of poor oral intake with significant sores in the mouth and thrush. The patient stated that she is having difficulty drinking or swallowing. She was not eating well and she feels week overall. She was having difficulty even getting out of her bed. She denied any hematemesis. No vomiting, nausea or abdominal pain. No neck pain. She has general weakness. No diarrhea. No bloody stool. Weakness of her right leg and foot, depression. PAST MEDICAL HISTORY/PAST SURGICAL HISTORY 1. Left hip replacement. 2. Port placement. 3. Vaginal hysterectomy 4. Bilateral total knee replacements 5. Skin ulcerations secondary to radiation 6. History of DVT 7. Osteoarthritis 8. Hyperlipidemia, 9. Hypertension 10. Reflux. 11. Nephrolithiasis 12. Renal cancer MEDICATIONS Reviewed in the chart. SOCIAL HISTORY No tobacco, drug or alcohol at this time. FAMILY HISTORY Negative. PHYSICAL EXAMINATION GENERAL: Alert, oriented, looks weak, laying in bed. The patient has some thrush on her tongue and is not able to open her mouth completely. She stated that she has some discomfort there. VITAL SIGNS: Vital signs stable. No fever. No jaundice. HEENT: Pupils are round, reactive to light. NECK: Supple. CHEST: Clear to auscultation and percussion CARDIAC: Regular rate and rhythm. ABDOMEN: Soft, nondistended, mild discomfort throughout the abdomen NEUROLOGIC: Neurologically, the patient has weakness in the right leg. LABORATORY DATA Sodium 142, potassium 3.3, creatinine 0.21. Liver function tests - mild elevation of the AST on admission 43, ALT 51, alkaline phosphatase 0.6, INR 1.2, hemoglobin from 3 days ago - white count 4.0, hemoglobin 9.3, platelets 91. C. Diff was negative about a week ago. ASSESSMENT/PLAN A 36-year-old lady with rectal cancer status post radiation and chemo. the patient has mucositis. Most likely this is the reason, may be complicated with tim. I recommend Magic mouth wash. I will start her on Nystatin Swish and swallow 10 mL three times a day for 10 days. If she does not tolerate consider that consider fluconazole. I think the patient is too weak to have an upper endoscopy and I not sure it will add much to the care of the patient. The patient being considered for palliative care and hospice, family not sure about that. We will follow up with you and continue supportive care. MD RULA Cho/ /1:50 PM /4:36 PM
[2016-12-23] MEDS: ATORVASTATIN 40 MG TAB PO SCH (20:34)
[2016-12-24] VITALS (8 sets, daily range): BP systolic 102–124; BP diastolic 55–77; PULSE 77–105; RESP 16–20; TEMP 97.4–98.6; O2SAT 95–100
[2016-12-24] MEDS: DEXAMETHASONE 4 MG TAB PO SCH ×3 (00:38→23:35)
[2016-12-24 05:37] LABS: AUTOMATED NEUTROPHIL # 3.8 TH/MM3 (1.8-7.7); BASOPHIL % 0.3 % (0.0-2.0); EOSINOPHIL % 0.1 % (0.0-4.0); HEMATOCRIT 26.6 % (35.0-46.0); LYMPH % 12.3 % (9.0-44.0); LYMPHOCYTE # 0.5 TH/MM3 (1.0-4.8); MEAN CELL VOLUME 89.1 FL (80.0-100.0); MEAN CORPUSCULAR HEMOGLOBIN 31.1 PG (27.0-34.0); MEAN CORPUSCULAR HGB CONC 34.8 % (32.0-36.0); MONO % 3.4 % (0.0-8.0); NEUT % 83.9 % (16.0-70.0); PLATELET COUNT 103 TH/MM3 (150-450); RED BLOOD COUNT 2.99 MIL/MM3 (4.00-5.30); RED CELL DISTRIBUTION WIDTH 18.8 % (11.6-17.2); WHITE BLOOD COUNT 4.5 TH/MM3 (4.0-11.0)
[2016-12-24 05:40] LABS: HEMO FLAGS AUTO DIFF
[2016-12-24 06:07] LABS: BICARBONATE 26.6 MEQ/L (21.0-32.0); POTASSIUM 3.8 MEQ/L (3.5-5.1)
[2016-12-24 07:10] LABS: BANDS 12 % (0-6); CORRECTED NUCLEATED RBC 1 /100 WBC (0-0); MYELOCYTES 1 % (0-0); NEUTROPHIL # MANUAL DIFF 4.1 TH/MM3 (1.8-7.7); OVALOCYTES 1+ (NORMAL); PLATELET ESTIMATE SMEAR LOW (NORMAL); PLATELET MORPHOLOGY NORMAL (NORMAL); POLYS (SEG NEUTROPHILS) 77 % (16-70); WBC DIFF SAMPLE 100
[2016-12-24 07:11] LABS: SCAN/DIFF FINAL DIFF MANUAL
[2016-12-24] MEDS: PENTOXIFYLLINE 400 MG CONTROLLED RELEASE TAB PO SCH ×3 (08:17→17:16)
[2016-12-24] MEDS: traMADol/ACETAMINOPHEN 37.5/325 1 TAB PO PRN ×2 (08:17→15:34)
[2016-12-24] MEDS: PANTOPRAZOLE SOD 20 MG DELAYED RELEASE TAB PO SCH ×2 (08:17→20:44)
[2016-12-24] MEDS: RIVAROXABAN 15 MG TAB PO SCH (08:17)
[2016-12-24] MEDS: SODIUM CHLORIDE 0.9% FLUSH 10 ML FLUSH IV FLUSH SCH ×2 (08:17→20:45)
[2016-12-24] MEDS: MULTIVITAMIN TAB PO SCH (08:17)
[2016-12-24] MEDS: NYSTAT/DIPHENHY/LIDO MOUTHWASH (Adult) 120ML SWISH-SWAL SCH ×4 (08:17→20:45)
[2016-12-24] MEDS: CHOLECALCIFEROL (VIT D3) 5000 UNIT CAP PO SCH (08:17)
[2016-12-24] MEDS: GABAPENTIN 400 MG CAP PO SCH ×3 (08:17→17:16)
--- NOTE | 2016-12-24 10:54 | HHI.PR ---
Subjective Remarks With sores in her mouth. Says she is able to eat some more. Magic wash helps nut not much. Patient denies fever or chills/ Says she has pain in her buttocks. Says he can't move legs because of pain and because she weak. No n/v/d /c. Objective Vitals Vital Signs Date Time Temp Pulse Resp B/P Pulse Ox O2 Delivery O2 Flow Rate FiO2 12/24/16 08:00 97.4 86 16 112/64 98 12/24/16 05:00 97.6 84 20 124/77 99 12/24/16 00:00 98.0 82 20 109/66 96 12/23/16 20:50 Nasal Cannula 2.00 Humidified 12/23/16 20:00 83 12/23/16 20:00 98.0 82 20 108/59 96 12/23/16 16:00 97.7 75 16 120/63 100 12/23/16 12:00 97.3 88 16 97/53 97 12/23/16 12:00 Room Air 2.00 I/O 12/23/16 12/23/16 12/23/16 12/24/16 12/24/16 12/24/16 07:00 15:00 23:00 07:00 15:00 23:00 Intake Total 0 ml 240 ml 360 ml Balance 0 ml 240 ml 360 ml Intake Oral 0 ml 240 ml 355 ml IV Total 5 ml # Voids 4 3 2 # Bowel Movements 0 2 1 Result Diagram: 12/24/16 0515 12/24/16 0515 Imaging Last Impressions Head CT 12/06/161821 Signed Impressions: Service Date/Time: Tuesday, December 06, 2016 19:06 - CONCLUSION: Normal examination. Ambrocio Le Jr., MD Chest X-Ray 12/06/161821 Signed Impressions: Service Date/Time: Tuesday, December 06, 2016 19:25 - CONCLUSION: No acute disease. Ambrocio Le Jr., MD Cervical Spine CT 12/06/161821 Signed Impressions: Service Date/Time: Tuesday, December 06, 2016 19:06 - CONCLUSION: 1. No fracture or dislocation. 2. Multilevel degenerative changes with patent central canal. Ambrocio Le Jr., MD Knee X-Ray 12/06/16 0000 Signed Impressions: Service Date/Time: Tuesday, December 06, 2016 19:28 - CONCLUSION: Knee arthroplasty. No acute abnormality. Ambrocio Le Jr., MD Hip and Pelvis X-Ray 12/06/16 0000 Signed Impressions: Service Date/Time: Tuesday, December 06, 2016 19:27 - CONCLUSION: No acute disease. Ambrocio Le Jr., MD Objective Remarks GENERAL: Well-developed patient, in no apparent distress. CARDIOVASCULAR: Normal rate and regular rhythm without murmurs OROPHARYNGEAL: Mouth with thrush, ulcerated lesions. RESPIRATORY: Good respiratory efforts. Breath sounds equal and clear to auscultation bilaterally. GASTROINTESTINAL: Abdomen soft, non-tender, non-distended. Normal active bowel sounds MUSCULOSKELETAL: Extremities without edema. pt able to use her upper extremities to hold herself when rolled to the right SKIN: stage 3 sacral decub ulcer present, some abrasions also noted around the buttocks. NEURO: Awake and alert. generalized weakness noted. PSYCH: Appropriate mood and affect. Procedures none A/P Problem List: (1) Physical deconditioning ICD Code: R53.81 Status: Acute (2) Hip pain, left ICD Code: M25.552 Status: Acute (3) Osteomalacia ICD Code: M83.9 Status: Acute Assessment and Plan Severe physical deconditioning, with hip and knee pain from falls Reviewed: hip xray and knee x ray negative for fracture. Vitamin D low. B12, CPK, and TSH within normal limits. -PT eval and treat, patient needs rehab however, pt unable to participate in PT due to pain. -Cont home gabapentin -Rehabilitation medicine, Dr. Chand, evaluated the patient and recommended OT/ PT, mobilize up to stretcher chair with Roho cushion, Turn and reposition every 2 hours to protect skin, her daughter did not wanted narcotics for her Mother, her mother does not want to Participate in Rehab, difficult to get placement and refused Hospice. Palliative care following. Osteomalacia, Vitamin D level 11, patient with increase weakness -Vitamin D3 5000 units QD, will need recheck in 4 wks outpatient, status post 1 dose of vitamin D Elevated troponin, troponin .06-->.06-->.05, plaque, nonischemic, no chest pain -Monitor tele, and vitals Right foot drop -Multipodis boot ordered Sacral pressure ulcer, stage III -mixing machine operator following -Turn Q2h. Lidocaine jelly for pain Questionable cdiff, patient reports had stool samples tested 3 weeks ago in outpatient lab, she does not know the results -d/c Flagyl 500mg TID -C diff here neg Dysphagia 2/2 likely to Oral thrush and sores, magic wash. Start fluconazole. Consult GI specialist. Electrolyte derangement replaced Chronic medical conditions Gerd, HLD, and osteoarthritis: Stable. Continue home medications Discussed with patient, nurse, family at bedside, all questions answered to the best of my abilities. No changes to anterior assessment. Discharge Planning Discharged was Held 12/14/16 calory count in progress from 12/16-12/18 w/ nutrition recs to be provided on . Her Daughter will discuss with Palliative care and will let me know her decision. Palliative care consult in place for assistance w goals of care and pain meds regimen. Pt's insurance is denying authorization for discharge to rehab/SNF as pt not participating in PT. Consult GI for dysphagia Rachel Andrade MD Dec 24, 2016 10:54
--- NOTE | 2016-12-24 11:07 | HHI.GIFU ---
Subjective Remarks Pt resting in bed. Says her mouth still hurts. (Radha Cardenas) Objective Vitals I&O Vital Signs Date Time Temp Pulse Resp B/P Pulse Ox O2 Delivery O2 Flow Rate FiO2 12/24/16 08:00 97.4 86 16 112/64 98 12/24/16 05:00 97.6 84 20 124/77 99 12/24/16 00:00 98.0 82 20 109/66 96 12/23/16 20:50 Nasal Cannula 2.00 Humidified 12/23/16 20:00 83 12/23/16 20:00 98.0 82 20 108/59 96 12/23/16 16:00 97.7 75 16 120/63 100 12/23/16 12:00 97.3 88 16 97/53 97 12/23/16 12:00 Room Air 2.00 I/O 12/23/16 12/23/16 12/23/16 12/24/16 12/24/16 12/24/16 07:00 15:00 23:00 07:00 15:00 23:00 Intake Total 0 ml 240 ml 360 ml Balance 0 ml 240 ml 360 ml Intake Oral 0 ml 240 ml 355 ml IV Total 5 ml # Voids 4 3 2 # Bowel Movements 0 2 1 Laboratory Laboratory Tests Test 12/24/16 05:15 White Blood Count 4.5 Red Blood Count 2.99 Hemoglobin 9.3 Hematocrit 26.6 Mean Corpuscular Volume 89.1 Mean Corpuscular Hemoglobin 31.1 Mean Corpuscular Hemoglobin 34.8 Concent Red Cell Distribution Width 18.8 Platelet Count 103 Mean Platelet Volume 6.6 Neutrophils (%) (Auto) 83.9 Lymphocytes (%) (Auto) 12.3 Monocytes (%) (Auto) 3.4 Eosinophils (%) (Auto) 0.1 Basophils (%) (Auto) 0.3 Neutrophils # (Auto) 3.8 Lymphocytes # (Auto) 0.5 Monocytes # (Auto) 0.2 Eosinophils # (Auto) 0.0 Basophils # (Auto) 0.0 CBC Comment AUTO DIFF Differential Total Cells 100 Counted Neutrophils % (Manual) 77 Band Neutrophils % 12 Lymphocytes % 7 Monocytes % 3 Neutrophils # (Manual) 4.1 Myelocytes 1 Nucleated Red Blood Cells 1 Differential Comment FINAL DIFF MANUAL Platelet Estimate LOW Platelet Morphology Comment NORMAL Ovalocytes 1+ Sodium Level 138 Potassium Level 3.8 Chloride Level 104 Carbon Dioxide Level 26.6 Anion Gap 7 Blood Urea Nitrogen 14 Creatinine 0.36 Estimat Glomerular Filtration 176 Rate Random Glucose 82 Calcium Level 8.4 Phosphorus Level 2.7 Magnesium Level 2.0 Imaging Last Impressions Head CT 12/06/161821 Signed Impressions: Service Date/Time: Tuesday, December 06, 2016 19:06 - CONCLUSION: Normal examination. Ambrocio Le Jr., MD Chest X-Ray 12/06/161821 Signed Impressions: Service Date/Time: Tuesday, December 06, 2016 19:25 - CONCLUSION: No acute disease. Ambrocio Le Jr., MD Cervical Spine CT 12/06/161821 Signed Impressions: Service Date/Time: Tuesday, December 06, 2016 19:06 - CONCLUSION: 1. No fracture or dislocation. 2. Multilevel degenerative changes with patent central canal. Ambrocio Le Jr., MD Knee X-Ray 12/06/16 0000 Signed Impressions: Service Date/Time: Tuesday, December 06, 2016 19:28 - CONCLUSION: Knee arthroplasty. No acute abnormality. Ambrocio Le Jr., MD Hip and Pelvis X-Ray 12/06/16 0000 Signed Impressions: Service Date/Time: Tuesday, December 06, 2016 19:27 - CONCLUSION: No acute disease. Ambrocio Le Jr., MD Physical Exam HEENT: PERRL; atraumatic; no jaundice. CHEST: lung sounds diminished CARDIAC: RRR ABDOMEN: Soft, nondistended, nontender; no hepatosplenomegaly; bowel sounds faint SKIN: Normal; no rash; no jaundice. 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 2/2 below. swish&swallow, fluconazole. Pt may be too week for EGD and would not necessarily change treatment course. May take a day or 2 to see improvements with nystatin swish and swallow. - rectal ca - s/p chemo, radiation PLAN - continue fluconazole - continue swish & swallow - supportive care This pt seen by myself and Dr Woods and this note is written on his behalf ( Radha Cardenas) Physician Comments Patient seen and examined Agree with above Continue with current supportive care Monitor labs Most likely the patient will require an endoscopy at some point we will most likely need to rule out any viral involvement (Severo Woods MD) Radha Cardenas Dec 24, 2016 11:07 Severo Woods MD Dec 24, 2016 15:35
[2016-12-24] MEDS: FLUCONAZOLE 100 MG PREMIX BAG 50 ML IV SCH (15:33)
[2016-12-24] MEDS: ATORVASTATIN 40 MG TAB PO SCH (20:44)
[2016-12-25] VITALS: BP 113/69; PULSE 63; RESP 16; TEMP 97.8; O2SAT 98
[2016-12-25 04:25] VITALS: BP 117/68; PULSE 81; RESP 17; TEMP 97.7; O2SAT 100
[2016-12-25 08:27] VITALS: BP 118/70; PULSE 74; RESP 18; TEMP 97.6; O2SAT 100
[2016-12-25] MEDS: NYSTAT/DIPHENHY/LIDO MOUTHWASH (Adult) 120ML SWISH-SWAL SCH ×4 (09:00→21:20)
[2016-12-25] MEDS: SODIUM CHLORIDE 0.9% FLUSH 10 ML FLUSH IV FLUSH SCH ×2 (09:00→21:20)
[2016-12-25] MEDS: GABAPENTIN 400 MG CAP PO SCH ×3 (09:51→17:19)
[2016-12-25] MEDS: PANTOPRAZOLE SOD 20 MG DELAYED RELEASE TAB PO SCH ×2 (09:52→21:20)
[2016-12-25] MEDS: MULTIVITAMIN TAB PO SCH (09:52)
[2016-12-25] MEDS: RIVAROXABAN 15 MG TAB PO SCH (09:52)
[2016-12-25] MEDS: CHOLECALCIFEROL (VIT D3) 5000 UNIT CAP PO SCH (10:01)
[2016-12-25] MEDS: PENTOXIFYLLINE 400 MG CONTROLLED RELEASE TAB PO SCH ×3 (10:01→17:19)
[2016-12-25] MEDS ORDERED: MAGICADU2 SWISH-SWAL (11:50)
--- NOTE | 2016-12-25 11:50 | HHI.PR ---
Subjective Remarks In bed. Says pain is fairly controlled by meds. Says mouth pain is improved and appetite is better. Says she was able to eat better. No fever or chills. Feesl tired. Patient is not moving much. She is following commands. Objective Vitals Vital Signs Date Time Temp Pulse Resp B/P Pulse Ox O2 Delivery O2 Flow Rate FiO2 12/25/16 08:27 97.6 74 18 118/70 100 12/25/16 08:00 93 Simple Mask 2.00 Humidified 12/25/16 04:50 Nasal Cannula 2.00 Humidified 12/25/16 04:25 97.7 81 17 117/68 100 12/25/16 00:00 97.8 63 16 113/69 98 12/24/16 23:12 Nasal Cannula 2.00 Humidified 12/24/16 21:00 Nasal Cannula 2.00 Humidified 12/24/16 20:47 83 12/24/16 20:00 98.2 84 17 102/66 95 12/24/16 16:00 98.3 100 16 106/55 100 12/24/16 12:00 Nasal Cannula 2.00 Humidified 12/24/16 12:00 98.6 105 16 106/61 100 I/O 12/24/16 12/24/16 12/24/16 12/25/16 12/25/16 12/25/16 07:00 15:00 23:00 07:00 15:00 23:00 Intake Total 100 ml 62 ml 0 ml Balance 100 ml 62 ml 0 ml Intake Oral 100 ml 60 ml 0 ml IV Total 0 ml 2 ml # Voids 3 3 7 # Bowel Movements 1 0 3 Result Diagram: 12/24/16 0515 12/24/1615 Imaging Last Impressions Head CT 12/06/161821 Signed Impressions: Service Date/Time: Tuesday, December 06, 2016 19:06 - CONCLUSION: Normal examination. Ambrocio Le Jr., MD Chest X-Ray 12/06/161821 Signed Impressions: Service Date/Time: Tuesday, December 06, 2016 19:25 - CONCLUSION: No acute disease. Ambrocio Le Jr., MD Cervical Spine CT 12/06/161821 Signed Impressions: Service Date/Time: Tuesday, December 06, 2016 19:06 - CONCLUSION: 1. No fracture or dislocation. 2. Multilevel degenerative changes with patent central canal. Ambrocio Le Jr., MD Knee X-Ray 12/06/16 0000 Signed Impressions: Service Date/Time: Tuesday, December 06, 2016 19:28 - CONCLUSION: Knee arthroplasty. No acute abnormality. Ambrocio Le Jr., MD Hip and Pelvis X-Ray 12/06/16 0000 Signed Impressions: Service Date/Time: Tuesday, December 06, 2016 19:27 - CONCLUSION: No acute disease. Ambrocio Le Jr., MD Objective Remarks GENERAL: Well-developed patient, in no apparent distress. CARDIOVASCULAR: Normal rate and regular rhythm without murmurs OROPHARYNGEAL: Mouth with thrush, ulcerated lesions. RESPIRATORY: Good respiratory efforts. Breath sounds equal and clear to auscultation bilaterally. GASTROINTESTINAL: Abdomen soft, non-tender, non-distended. Normal active bowel sounds MUSCULOSKELETAL: Extremities without edema. upper extremities strength failry good. Elevates left leg, not able to elevated right leg 2/2 pain. SKIN: stage 3 sacral decub ulcer present, some abrasions around the buttocks. NEURO: Awake and alert. generalized weakness noted. PSYCH: Appropriate mood and affect. Procedures none A/P Problem List: (1) Physical deconditioning ICD Code: R53.81 Status: Acute (2) Hip pain, left ICD Code: M25.552 Status: Acute (3) Osteomalacia ICD Code: M83.9 Status: Acute Assessment and Plan Severe physical deconditioning, with hip and knee pain from falls Reviewed: hip xray and knee x ray negative for fracture. Vitamin D low. B12, CPK, and TSH within normal limits. -PT eval and treat, patient needs rehab however, pt unable to participate in PT due to pain. -Cont home gabapentin -Rehabilitation medicine, Dr. Chand, evaluated the patient and recommended OT/ PT, mobilize up to stretcher chair with Roho cushion, Turn and reposition every 2 hours to protect skin, her daughter did not wanted narcotics for her Mother, her mother does not want to Participate in Rehab, difficult to get placement and refused Hospice. Palliative care following. Osteomalacia, Vitamin D level 11, patient with increase weakness -Vitamin D3 5000 units QD, will need recheck in 4 wks outpatient, status post 1 dose of vitamin D Elevated troponin, troponin .06-->.06-->.05, plaque, nonischemic, no chest pain -Monitor tele, and vitals Right foot drop -Multipodis boot ordered Sacral pressure ulcer, stage III -crematory attendant following -Turn Q2h. Lidocaine jelly for pain Questionable cdiff, patient reports had stool samples tested 3 weeks ago in outpatient lab, she does not know the results -d/c Flagyl 500mg TID -C diff here neg Dysphagia 2/2 likely to Oral thrush and sores, magic wash. Start fluconazole. Consult GI specialist, appreciate recommendations, continue magic wash patient will not benefit from any EGD at this point. Electrolyte derangement replaced Chronic medical conditions Gerd, HLD, and osteoarthritis: Stable. Continue home medications Discussed with patient, nurse, family at bedside, all questions answered to the best of my abilities. No changes to anterior assessment. Discharge Planning Discharged was Held 12/14/16 calory count in progress from 12/16-12/18 w/ nutrition recs to be provided on . Her Daughter will discuss with Palliative care and will let me know her decision. Palliative care consult in place for assistance w goals of care and pain meds regimen. Pt's insurance is denying authorization for discharge to rehab/SNF as pt not participating in PT. Consult GI for dysphagia, appreciate recommendations continue Rachel Curry MD Dec 25, 2016 11:50
[2016-12-25] MEDS ORDERED: CHOL5000 PO (11:52)
[2016-12-25 12:27] VITALS: BP 97/57; PULSE 96; RESP 18; TEMP 97.7; O2SAT 98
[2016-12-25] MEDS: FLUCONAZOLE 100 MG PREMIX BAG 50 ML IV SCH (13:00)
--- NOTE | 2016-12-25 13:59 | HHI.HCPN ---
Reason for visit a. To assist with evaluation and management of symptoms including: Pain, malnutrition b. To assist medical decision maker(s) with: better understanding of current medical conditions; weighing benefits/burdens of medical treatment options; making medical treatment decisions. . Subjective/Interval History 76-year-old female status post anal cancer with radiation with subsequent slow healing rectal wound seen to follow-up on pain management and poor appetite. She is seen with her daughter, Giovana, at bedside. Healthcare surrogate is the daughter, Merna, however, Merna and Giovana are making decisions jointly. Mrs. Lester continues to complain of "intolerable pain" with any movement. She states that her pain is in both legs and feet, rectum and inside her mouth. She does have mucositis for which she is being treated with nystatin swish and swallow 3 times daily. Pain management has been an issue during her admission as she developed confusion at home using a fentanyl patch and family was reluctant to have narcotic pain medications prescribed. She has been taking Ultracet, which has been in adequate to manage her pain. I did discuss this issue with patient, Merna and Giovana, and all agree that with such significant pain she is unable to participate in therapy, and indeed has great difficulty in simply readjusting herself in bed. This has resulted in the beginnings of skin breakdown on her left elbow in addition to her other wounds. Vital signs: Blood pressure 97/57, heart rate 96, respiratory rate 18, oxygen saturation 98% on 2 L nasal cannula afebrile. Laboratory studies white blood cells 4.5, hemoglobin 9.3, hematocrit 26.6, platelets 103, sodium 138, potassium 3.8, BUN 14, creatinine 0.36, total protein 3.9. . Family/friend interactions Spoke with daughter, Giovana, at patient's bedside. Giovana states that she has had a long conversation with her mother who states that the pain is unbearable and she just wants it to stop. She states she is unable to do any physical therapy due to the pain and Giovana raised the subject of hospice. I did discuss with her my previous meeting with Merna, who at the time, had goals that were not consistent with hospice. Giovana states that Merna is now aware of her mother's feelings regarding the pain and feels that hospice would be appropriate. Telephone call was placed to Merna to confirm this and message left for a return call. . Advance Directives Living Will: Never completed Health Care Surrogate: Copy in medical record Durable Power of Supervisor Production: Copy in medical record Advance Directive Specifics Health Care Surrogate(s): Daughter Merna . Objective Vital Signs Date Time Temp Pulse Resp B/P Pulse Ox O2 Delivery O2 Flow Rate FiO2 12/25/16 12:27 97.7 96 18 97/57 98 12/25/16 08:27 97.6 74 18 118/70 100 12/25/16 08:00 93 Simple Mask 2.00 Humidified 12/25/16 04:50 Nasal Cannula 2.00 Humidified 12/25/16 04:25 97.7 81 17 117/68 100 12/25/16 00:00 97.8 63 16 113/69 98 12/24/16 23:12 Nasal Cannula 2.00 Humidified 12/24/16 21:00 Nasal Cannula 2.00 Humidified 12/24/16 20:47 83 12/24/16 20:00 98.2 84 17 102/66 95 12/24/16 16:00 98.3 100 16 106/55 100 Intake & Output 12/25/16 12/25/16 07:00 19:00 Intake Total 62 ml Balance 62 ml Intake Oral 60 ml IV Total 2 ml # Voids 10 # Bowel Movements 3 Physical Exam CONSTITUTIONAL/GENERAL: This is an elderly, weak, depressed-appearing patient, in no apparent distress. TUBES/LINES/DRAINS: heel protection boots, 22-gauge PIV right forearm SKIN: No jaundice. Abrasion right knee. Mid gluteal cleft wound dressed clean dry and intact. Left metatarsal wound. Left elbow erythema ENT: Clearing erythema on palate. Open sores on and under tongue. NECK: Trachea midline. Supple, nontender. No palpable thyroid enlargement or nodularity. CARDIOVASCULAR: Regular rate and rhythm without murmurs, gallops, or rubs. No JVD. Peripheral pulses symmetric. RESPIRATORY/CHEST: Symmetric, unlabored respirations. Clear to auscultation. Breath sounds equal bilaterally. No wheezes, rales, or rhonchi. GASTROINTESTINAL: Abdomen soft, non-tender, nondistended. No hepato-splenomegaly , or palpable masses. No guarding. Bowel sounds present. GENITOURINARY: Without palpable bladder distension. MUSCULOSKELETAL: Extremities without clubbing, cyanosis, or edema. Muscle atrophy evident bilaterally. NEUROLOGICAL: Opens eyes to voice, engages in conversation, oriented to self, place, purpose. PSYCHIATRIC: Calm, cooperative . Diagnostic Tests Laboratory Laboratory Tests Test 12/24/16 05:15 White Blood Count 4.5 TH/MM3 (4.0-11.0) Red Blood Count 2.99 MIL/MM3 (4.00-5.30) Hemoglobin 9.3 GM/DL (11.6-15.3) Hematocrit 26.6 % (35.0-46.0) Mean Corpuscular Volume 89.1 FL (80.0-100.0) Mean Corpuscular Hemoglobin 31.1 PG (27.0-34.0) Mean Corpuscular Hemoglobin 34.8 % Concent (32.0-36.0) Red Cell Distribution Width 18.8 % (11.6-17.2) Platelet Count 103 TH/MM3 (150-450) Mean Platelet Volume 6.6 FL (7.0-11.0) Neutrophils (%) (Auto) 83.9 % (16.0-70.0) Lymphocytes (%) (Auto) 12.3 % (9.0-44.0) Monocytes (%) (Auto) 3.4 % (0.0-8.0) Eosinophils (%) (Auto) 0.1 % (0.0-4.0) Basophils (%) (Auto) 0.3 % (0.0-2.0) Neutrophils # (Auto) 3.8 TH/MM3 (1.8-7.7) Lymphocytes # (Auto) 0.5 TH/MM3 (1.0-4.8) Monocytes # (Auto) 0.2 TH/MM3 (0-0.9) Eosinophils # (Auto) 0.0 TH/MM3 (0-0.4) Basophils # (Auto) 0.0 TH/MM3 (0-0.2) CBC Comment AUTO DIFF Differential Total Cells 100 Counted Neutrophils % (Manual) 77 % (16-70) Band Neutrophils % 12 % (0-6) Lymphocytes % 7 % (9-44) Monocytes % 3 % (0-8) Neutrophils # (Manual) 4.1 TH/MM3 (1.8-7.7) Myelocytes 1 % (0-0) Nucleated Red Blood Cells 1 /100 WBC (0-0) Differential Comment FINAL DIFF MANUAL Platelet Estimate LOW (NORMAL) Platelet Morphology Comment NORMAL (NORMAL) Ovalocytes 1+ (NORMAL) Sodium Level 138 MEQ/L (136-145) Potassium Level 3.8 MEQ/L (3.5-5.1) Chloride Level 104 MEQ/L (98-107) Carbon Dioxide Level 26.6 MEQ/L (21.0-32.0) Anion Gap 7 MEQ/L (5-15) Blood Urea Nitrogen 14 MG/DL (7-18) Creatinine 0.36 MG/DL (0.50-1.00) Estimat Glomerular Filtration 176 ML/MIN Rate (>89) Random Glucose 82 MG/DL (74-106) Calcium Level 8.4 MG/DL (8.5-10.1) Phosphorus Level 2.7 MG/DL (2.5-4.9) Magnesium Level 2.0 MG/DL (1.5-2.5) . Result Diagram: 12/24/16 0515 12/24/16 0515 Imaging Last Impressions Head CT 12/06/161821 Signed Impressions: Service Date/Time: Tuesday, December 06, 2016 19:06 - CONCLUSION: Normal examination. Ambrocio Le Jr., MD Chest X-Ray 12/06/161821 Signed Impressions: Service Date/Time: Tuesday, December 06, 2016 19:25 - CONCLUSION: No acute disease. Ambrocio Le Jr., MD Cervical Spine CT 12/06/161821 Signed Impressions: Service Date/Time: Tuesday, December 06, 2016 19:06 - CONCLUSION: 1. No fracture or dislocation. 2. Multilevel degenerative changes with patent central canal. Ambrocio Le Jr., MD Knee X-Ray 12/06/16 0000 Signed Impressions: Service Date/Time: Tuesday, December 06, 2016 19:28 - CONCLUSION: Knee arthroplasty. No acute abnormality. Ambrocio Le Jr., MD Hip and Pelvis X-Ray 12/06/16 0000 Signed Impressions: Service Date/Time: Tuesday, December 06, 2016 19:27 - CONCLUSION: No acute disease. 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 (3) anal cancer January 2016, status post chemotherapy and radiation (4) skin ulcerations/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 Comment: Perianal and presacral (5) depression (6) GERD (7) hyperlipidemia (8) history of DVT right leg (9) hypertension (10) history of nephrolithiasis Symptom Scale: (1) pain 0-10 Scale: Unable to quantify (primarily due to the sciatic nerve injury) Comment: Primarily back/buttock/right leg sciatic nerve pain (2) depression 0-10 Scale: Unable to quantify (no doubt worsened by the chronic pain and bedbound status) (3) anorexia 0-10 Scale: Unable to quantify (exacerbated by pain, fatigue, depression) Pertinent Non-Medical Issues Psychosocial: , was living alone, 2 daughters Spiritual: The patient has a Oriental Orthodox background, and her spirituality has been important for her. She has appreciated head of data visits. Legal: The patient has capacity for shared decision-making; she has designated her daughter Merna as healthcare surrogate. Daughter Giovana, is supporting her sister in these decisions. Ethical issues impacting care: None . Important Contacts Daughter: Merna [phone] . Prognosis This patient has been on a fairly steady decline over the past several months, and that seems to be continuing. She has now become bedbound, has ongoing chronic pain, debility, fatigue, and anorexia, probably all made somewhat worse by her apparent depression and lack of motivation. If this continues, other complications will occur, and this decline will lead to the patient's . At some point in the upcoming weeks or months, she will likely be appropriate for hospice services. . Code Status: No Code Plan * DNR * DECISION-MAKING: The patient has some capacity for shared decision-making; she has designated her daughter Merna as healthcare surrogate. Merna is being supported by her sister Giovana. * GOALS: The goals have shifted to comfort at this time, due to patient's unrelenting pain, she is unable to participate in therapy. SYMPTOMS: * Pain: She has pain with movement and has been unable to participate in therapy. Daughter, Merna, had previously been unwilling to use narcotics however is now considering hospice and is aware that her pain would be appropriately medicated with narcotics. This was discussed with Dr. Andrade and pain medication is being ordered for the patient now. * Anorexia: She continues to complain of mouth sores and has been prescribed nystatin swish and swallow. She has open sores on her tongue and her appetite remains poor. * Depression: This appears to be both situational and related to her level of uncontrolled pain from her rectal wound, leg and foot pain and mouth pain. At this time the patient is appropriate for hospice if goals are compatible. The daughter, Giovana, states that both sisters and mother are in agreement with hospice. Call back is pending from Merna, who is the legal decision maker, to confirm that. Hospice has been consulted for further questions to be discussed with the daughter Giovana who is visiting from [place]. Palliative care will continue to follow the patient during hospital course as condition evolves, to assist patient/decision-maker with understanding of their medical conditions, weighing benefits/burdens of treatment options, for clarification of goals of treatment. Additionally will assist with any symptoms of palliative concern. . Attestation To help prompt me to consider important information that might be impacting today's encounter and assessment, information from prior notes written by myself or my colleagues may have been "brought forward" into today's note. My signature on this note, however, is an attestation that I personally performed the exam, history, and/or decision-making noted today, and, unless otherwise indicated, the interactions with patient, family, and staff as well as the review of records all occurred today. I also attest that the listed assessment and stated plan reflect my best clinical judgment today based on the combination of historical information, prior notes, and today's exam/ interactions. When time spent is documented, it refers only to time spent today by the signer, or if indicated, combined time spent today by collaborating physician/nurse practitioner. Aleksandra Ventura Dec 25, 2016 1:59 pm
[2016-12-25] MEDS: DEXAMETHASONE 4 MG TAB PO SCH ×2 (14:39→23:31)
[2016-12-25] MEDS: traMADol/ACETAMINOPHEN 37.5/325 1 TAB PO PRN (14:43)
--- NOTE | 2016-12-25 14:52 | HHI.GIFU ---
Subjective Remarks Resting in bed. Extremely weak. Not taking much in the way of po. Does state that she has some improvement with biotene. Palliative care following, hospice consulted. (Loretta Wellington) Objective Vitals I&O Vital Signs Date Time Temp Pulse Resp B/P Pulse Ox O2 Delivery O2 Flow Rate FiO2 12/25/16 12:27 97.7 96 18 97/57 98 12/25/16 08:27 97.6 74 18 118/70 100 12/25/16 08:00 93 Simple Mask 2.00 Humidified 12/25/16 04:50 Nasal Cannula 2.00 Humidified 12/25/16 04:25 97.7 81 17 117/68 100 12/25/16 00:00 97.8 63 16 113/69 98 12/24/16 23:12 Nasal Cannula 2.00 Humidified 12/24/16 21:00 Nasal Cannula 2.00 Humidified 12/24/16 20:47 83 12/24/16 20:00 98.2 84 17 102/66 95 12/24/16 16:00 98.3 100 16 106/55 100 I/O 12/24/16 12/24/16 12/24/16 12/25/16 12/25/16 12/25/16 07:00 15:00 23:00 07:00 15:00 23:00 Intake Total 100 ml 62 ml 0 ml Balance 100 ml 62 ml 0 ml Intake Oral 100 ml 60 ml 0 ml IV Total 0 ml 2 ml # Voids 3 3 7 # Bowel Movements 1 0 3 Imaging Last Impressions Head CT 12/06/161821 Signed Impressions: Service Date/Time: Tuesday, December 06, 2016 19:06 - CONCLUSION: Normal examination. Ambrocio Le Jr., MD Chest X-Ray 12/06/161821 Signed Impressions: Service Date/Time: Tuesday, December 06, 2016 19:25 - CONCLUSION: No acute disease. Ambrocio Le Jr., MD Cervical Spine CT 12/06/161821 Signed Impressions: Service Date/Time: Tuesday, December 06, 2016 19:06 - CONCLUSION: 1. No fracture or dislocation. 2. Multilevel degenerative changes with patent central canal. Ambrocio Le Jr., MD Knee X-Ray 12/06/16 0000 Signed Impressions: Service Date/Time: Tuesday, December 06, 2016 19:28 - CONCLUSION: Knee arthroplasty. No acute abnormality. Ambrocio Le Jr., MD Hip and Pelvis X-Ray 12/06/16 0000 Signed Impressions: Service Date/Time: Tuesday, December 06, 2016 19:27 - CONCLUSION: No acute disease. Ambrocio Le Jr., MD Physical Exam HEENT: Normocytic. Mucositis CHEST: Resp. shallow/even, diminished CARDIAC: RRR ABDOMEN: Soft, nondistended, nontender; no hepatosplenomegaly; bowel sounds hypoactive EXTREMITIES: Generalized edema SKIN: Normal; no rash; no jaundice. LEGAL BILLING SPECIALIST: Generalized weakness (Loretta Wellington) Assessment and Plan Plan ASSESSMENT - Severe mucositis, possible candidiasis. Magic Mouthwash, Diflucan. Pt states that it has slightly improved with biotene. Poor po intake. We were originally consulted for possible EGD, but patient is extremely weak. Palliative care following. Hospice has been consulted. - Anal cancer. Dx in 2016. S/P chemotherapy/radiation, slow healing rectal wound. DNR. Palliative care following, hospice has been consulted. - Sacral pressure ulcer, stage III, Electrolyte abnormalities. Per primary PLAN - [place] - Increase protonix to 40mg po BID - Cont. Diflucan - Cont. Magic Mouthwash - Palliative care following, hospice has been consulted - Would hold on EGD at this time. Pt extremely weak and hospice consult is pending. Will await family's decision. - Pt seen and examined by Dr. Maxwell and myself and this note is written on his behalf (Loretta Wellington) Plan Discussed benefits of having PEG tube, patient will consider. WBC is OK, HCT is slowly declining. Pt is considering comfort measures/hospice. (Wilmer Maxwell MD) Loretta Wellington Dec 25, 2016 14:51 Wilmer Maxwell MD Dec 25, 2016 18:56
[2016-12-25 16:21] VITALS: BP 91/55; PULSE 90; RESP 18; TEMP 98.2; O2SAT 98
[2016-12-25] MEDS ORDERED: MEGESTROL ACETATE SUSP 400 MG/10 ML CUP PO ONE (18:30)
[2016-12-25] MEDS: ACETAMINOPHEN/HYDROcodone 325 MG/5 MG TAB PO PRN (18:52)
[2016-12-25 20:00] VITALS: BP 96/57; PULSE 90; PULSE 94; RESP 18; TEMP 97.8; O2SAT 98
[2016-12-25] MEDS: ATORVASTATIN 40 MG TAB PO SCH (21:20)
[2016-12-26] VITALS (7 sets, daily range): BP systolic 93–132; BP diastolic 54–76; PULSE 78–87; RESP 18–20; TEMP 97.2–98.1; O2SAT 97–100
[2016-12-26] MEDS: NYSTAT/DIPHENHY/LIDO MOUTHWASH (Adult) 120ML SWISH-SWAL SCH ×4 (09:00→20:57)
[2016-12-26] MEDS: PANTOPRAZOLE SOD 20 MG DELAYED RELEASE TAB PO SCH (09:29)
[2016-12-26] MEDS: CHOLECALCIFEROL (VIT D3) 5000 UNIT CAP PO SCH (09:29)
[2016-12-26] MEDS: MULTIVITAMIN TAB PO SCH (09:29)
[2016-12-26] MEDS: MEGESTROL ACETATE SUSP 400 MG/10 ML CUP PO SCH (09:29)
[2016-12-26] MEDS: SODIUM CHLORIDE 0.9% FLUSH 10 ML FLUSH IV FLUSH SCH ×2 (09:29→20:55)
[2016-12-26] MEDS: PENTOXIFYLLINE 400 MG CONTROLLED RELEASE TAB PO SCH ×3 (09:29→16:46)
[2016-12-26] MEDS: GABAPENTIN 400 MG CAP PO SCH ×3 (09:30→16:46)
[2016-12-26] MEDS: RIVAROXABAN 15 MG TAB PO SCH (09:30)
[2016-12-26] MEDS: ACETAMINOPHEN/HYDROcodone 325 MG/5 MG TAB PO PRN ×3 (09:40→20:55)
--- NOTE | 2016-12-26 10:19 | HHI.PR ---
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 seen in her bedroom in the presence of her Daughter Miss Akhtar, she states yesterday was offered by GI specialist for PEG tube placement today and also offered Hope about her mother improvement once she is been fed properly, she will discuss with her mother and her another Sister during the day and will let me know. no nausea, vomit or diarrhea. Objective Vital Signs Date Time Temp Pulse Resp B/P Pulse Ox O2 Delivery O2 Flow Rate FiO2 12/26/16 08:40 97.9 86 18 114/66 99 12/26/16 08:00 97 Nasal Cannula 2.00 Humidified 12/26/16 04:23 97.2 80 18 132/72 100 12/26/16 00:27 97.4 87 20 121/58 97 12/26/16 00:00 Nasal Cannula 2.00 Humidified 12/25/16 20:00 97.8 94 18 96/57 98 12/25/16 20:00 Nasal Cannula 2.00 Humidified 12/25/16 20:00 90 12/25/16 16:21 98.2 90 18 91/55 98 12/25/16 12:27 97.7 96 18 97/57 98 I/O 12/25/16 12/25/16 12/25/16 12/26/16 12/26/16 12/26/16 07:00 15:00 23:00 07:00 15:00 23:00 Intake Total 0 ml 480 ml Balance 0 ml 480 ml Intake Oral 0 ml 480 ml # Voids 7 3 4 3 # Bowel Movements 3 2 0 0 Result Diagram: 12/24/1615 12/24/16514 Imaging Last Impressions Head CT 12/06/161821 Signed Impressions: Service Date/Time: Tuesday, December 06, 2016 19:06 - CONCLUSION: Normal examination. Ambrocio Le Jr., MD Chest X-Ray 12/06/161821 Signed Impressions: Service Date/Time: Tuesday, December 06, 2016 19:25 - CONCLUSION: No acute disease. Ambrocio Le Jr., MD Cervical Spine CT 12/06/16 1822 Signed Impressions: Service Date/Time: Tuesday, December 06, 2016 19:06 - CONCLUSION: 1. No fracture or dislocation. 2. Multilevel degenerative changes with patent central canal. Ambrocio Le Jr., MD Knee X-Ray 12/06/16 0000 Signed Impressions: Service Date/Time: Tuesday, December 06, 2016 19:28 - CONCLUSION: Knee arthroplasty. No acute abnormality. Ambrocio Le Jr., MD Hip and Pelvis X-Ray 12/06/16 0000 Signed Impressions: Service Date/Time: Tuesday, December 06, 2016 19:27 - CONCLUSION: No acute disease. Ambrocio Le Jr., MD Procedures No procedures. Other Results Laboratory Tests Test 12/24/16 05:15 White Blood Count 4.5 TH/MM3 Red Blood Count 2.99 MIL/MM3 Hemoglobin 9.3 GM/DL Hematocrit 26.6 % Mean Corpuscular Volume 89.1 FL Mean Corpuscular Hemoglobin 31.1 PG Mean Corpuscular Hemoglobin 34.8 % Concent Red Cell Distribution Width 18.8 % Platelet Count 103 TH/MM3 Mean Platelet Volume 6.6 FL Neutrophils (%) (Auto) 83.9 % Lymphocytes (%) (Auto) 12.3 % Monocytes (%) (Auto) 3.4 % Eosinophils (%) (Auto) 0.1 % Basophils (%) (Auto) 0.3 % Neutrophils # (Auto) 3.8 TH/MM3 Lymphocytes # (Auto) 0.5 TH/MM3 Monocytes # (Auto) 0.2 TH/MM3 Eosinophils # (Auto) 0.0 TH/MM3 Basophils # (Auto) 0.0 TH/MM3 CBC Comment AUTO DIFF Differential Total Cells 100 Counted Neutrophils % (Manual) 77 % Band Neutrophils % 12 % Lymphocytes % 7 % Monocytes % 3 % Neutrophils # (Manual) 4.1 TH/MM3 Myelocytes 1 % Nucleated Red Blood Cells 1 /100 WBC Differential Comment FINAL DIFF MANUAL Platelet Estimate LOW Platelet Morphology Comment NORMAL Ovalocytes 1+ Sodium Level 138 MEQ/L Potassium Level 3.8 MEQ/L Chloride Level 104 MEQ/L Carbon Dioxide Level 26.6 MEQ/L Anion Gap 7 MEQ/L Blood Urea Nitrogen 14 MG/DL Creatinine 0.36 MG/DL Estimat Glomerular Filtration 176 ML/MIN Rate Random Glucose 82 MG/DL Calcium Level 8.4 MG/DL Phosphorus Level 2.7 MG/DL Magnesium Level 2.0 MG/DL Objective Remarks GENERAL: Well-developed patient, in no apparent distress. CARDIOVASCULAR: Normal rate and regular rhythm without murmurs RESPIRATORY: Good respiratory efforts. Breath sounds equal and clear to auscultation bilaterally. GASTROINTESTINAL: Abdomen soft, non-tender, non-distended. Normal active bowel sounds MUSCULOSKELETAL: Extremities without edema. pt able to use her upper extremities to hold herself when rolled to the right NEURO: Awake and alert. generalized weakness noted. PSYCH: Appropriate mood and affect. Medications and IVs Current Medications Medications (Trade) Dose Ordered Sig/Anette Route Start Time Stop Time Status Last Admin (NS Flush) 2 ml UNSCH PRN IV FLUSH 12/06/16 20:45 12/10/16 01:09 (NS Flush) 2 ml BID IV FLUSH 12/06/16 21:00 12/26/16 09:29 (Narcan Inj) 0.4 mg UNSCH PRN IV 12/06/16 20:45 (Lipitor) 40 mg HS PO 12/07/16 21:00 12/25/16 21:20 (Neurontin) 1,200 mg TID PO 12/07/16 13:00 12/26/16 09:30 (TRENtal SR) 400 mg TID PO 12/07/16 13:00 12/26/16 09:29 (Xarelto) 15 mg DAILY PO 12/07/16 12:00 12/26/16 09:30 (Protonix) 20 mg BID PO 12/07/16 12:00 12/26/16 09:29 (Vitamin D3) 5,000 units DAILY PO 12/08/16 09:00 12/26/16 09:29 (Decadron) 4 mg Q12H PO 12/11/16 00:00 12/25/16 23:31 Miscellaneous Information 1 Q3D T-DERMAL 12/17/16 16:00 (Xylocaine 2% Jelly) 1 applic DAILY PRN TOPICAL 12/22/16 17:00 (Magic Mouthwash Adult Liq) 5 ml QID SWISH-SWAL 12/23/16 13:00 12/26/16 09:00 Multivitamins 1 tab 1 tab DAILY PO 12/24/16 09:00 12/26/16 09:29 (Diflucan 100 Mg Premix Bag) 50 ml @ 50 mls/hr Q24H IV 12/23/16 13:00 12/28/16 12:59 12/25/16 13:00 ([place] 5-325 Mg) 1 tab Q4H PRN PO 12/25/16 16:00 12/26/16 09:40 (Megace Liq) 400 mg DAILY PO 12/26/16 09:00 12/26/16 09:29 A/P Assessment and Plan Severe physical deconditioning, with hip and knee pain from falls Reviewed: hip xray and knee x ray negative for fracture. Vitamin D low. B12, CPK, and TSH within normal limits. -PT eval and treat, patient needs rehab however, pt unable to participate in PT due to pain. -Cont home gabapentin -Rehabilitation medicine, Dr. Chand, evaluated the patient and recommended OT/ PT, mobilize up to stretcher chair with Roho cushion, Turn and reposition every 2 hours to protect skin, her daughter did not wanted narcotics for her Mother, her mother does not want to Participate in Rehab, difficult to get placement and refused Hospice. Palliative care following. Osteomalacia, Vitamin D level 11, patient with increase weakness -Vitamin D3 5000 units QD, will need recheck in 4 wks outpatient, status post 1 dose of vitamin D Elevated troponin, troponin .06-->.06-->.05, plaque, nonischemic, no chest pain -Monitor tele, and vitals Right foot drop -Multipodis boot ordered Sacral pressure ulcer, stage III -case reviewer following -Turn Q2h. Lidocaine jelly for pain Questionable cdiff, patient reports had stool samples tested 3 weeks ago in outpatient lab, she does not know the results -d/c Flagyl 500mg TID -C diff here neg Dysphagia 2/2 likely to Oral thrush and sores, magic wash. Start fluconazole. Consult GI specialist, appreciate recommendations, continue magic wash patient will not benefit from any EGD at this point. Electrolyte derangement replaced Chronic medical conditions Gerd, HLD, and osteoarthritis: Stable. Continue home medications Discussed with patient, Nurse Miss Ingram and her Daughter Mrs. Akhtar in the room, all questions answered to the best of my abilities. her Daughter Mrs. Bauman refused Hospice yesterday. No changes to anterior assessment. Discharge Planning Discharged was Held 12/14/16 calory count in progress from 12/16-12/18 w/ nutrition recs to be provided on . Her Daughter Mrs. Akhtar will discuss with her Sister and Mother and let me know her decision. Palliative care consult in place for assistance w goals of care and pain meds regimen. Pt's insurance is denying authorization for discharge to rehab/SNF as pt not participating in PT. Consult GI for dysphagia, recommended PEG placement. Discussed with palliative care service. Family decided wants howpice evaluation. Also will add norco for pain. Discharge Planning Following her Daughters decision at this time continue Hospitalized was not accepted by [facility] and also by Rehab as outpatient Dylan Cassidy MD Dec 26, 2016 10:19
[2016-12-26] MEDS: DEXAMETHASONE 4 MG TAB PO SCH ×2 (12:00→22:54)
--- NOTE | 2016-12-26 12:30 | HHI.HCPN ---
Reason for visit a. To assist with evaluation and management of symptoms including: Pain, malnutrition b. To assist medical decision maker(s) with: better understanding of current medical conditions; weighing benefits/burdens of medical treatment options; making medical treatment decisions. . Subjective/Interval History 76-year-old female seen in follow-up to evaluate pain and malnutrition after initiation of pain medication yesterday. She is status post radiation for anal cancer with residual gluteal cleft wound and chronic leg and foot pain. She additionally has mucositis and has significant pain with oral intake. [place] 5/325 mg every 4 hours was initiated yesterday. Hospice consultation for information was requested yesterday however no family was at bedside when hospice visitation was made. Family has vacillated on the hospice decision and again goals do not appear to be consistent. Vital signs-blood pressure 114/66, heart rate 86, respiratory rate 18, oxygen saturation 99% on 2 L nasal cannula, afebrile. Intake and output records show 10-13 voids per day with regular bowel movements. Her appetite is improving and is able to tolerate some soft foods however still has significant mouth and throat discomfort secondary to the mucositis. No new laboratory studies available. . Family/friend interactions Spoke with daughter, Merna, at 7:30 AM, returning her call from the previous evening. She states that she discussed the possibility of hospice with her mother but no conclusion was reached. Merna, who is the healthcare surrogate, stated that the [facility] rehabilitation did have an offer to admit mother to long-term placement but after discussion with the pillowcase maker and the admissions liaison from the [facility], the paperwork for applying for Medicaid has not yet been filled out by Merna. There is another daughter, Giovana, who lives in [place], currently visiting and supporting her mother and sister in decision-making. The list of documents required for Medicaid application was supplied to Giovana who wished to visit the facility and ask questions prior to proceeding. The patient's sister is also scheduled to visit today and the patient wishes to speak with her sister regarding her long-term goals. GI did discuss PEG tube placement with the family and patient yesterday to improve nutritional status for wound healing while the mucositis is treated. This was further discussed with Giovana and Merna today including the need for elevation of head of bed to prevent aspiration, which could be difficult, as patient is unable to sit up due to the pain caused by pressure on the gluteal cleft wound. The patient is alert and oriented, able to make her needs known and does show some insight into her prognosis, however wishes assisted decision-making. . Advance Directives Living Will: Never completed Health Care Surrogate: Copy in medical record Durable Power of Flaring Machine Operator: Copy in medical record Advance Directive Specifics Health Care Surrogate(s): Daughter Merna . Objective Vital Signs Date Time Temp Pulse Resp B/P Pulse Ox O2 Delivery O2 Flow Rate FiO2 12/26/16 08:40 97.9 86 18 114/66 99 12/26/16 08:00 97 Nasal Cannula 2.00 Humidified 12/26/16 04:23 97.2 80 18 132/72 100 12/26/16 00:27 97.4 87 20 121/58 97 12/26/16 00:00 Nasal Cannula 2.00 Humidified 12/25/16 20:00 97.8 94 18 96/57 98 12/25/16 20:00 Nasal Cannula 2.00 Humidified 12/25/16 20:00 90 12/25/16 16:21 98.2 90 18 91/55 98 12/25/16 12:27 97.7 96 18 97/57 98 Intake & Output 12/26/16 12/26/16 06:59 18:59 # Voids 7 # Bowel Movements 0 Physical Exam CONSTITUTIONAL/GENERAL: This is an elderly, weak, depressed-appearing patient, in no apparent distress. TUBES/LINES/DRAINS: heel protection boots, 22-gauge PIV right forearm SKIN: No jaundice. Abrasion right knee. Mid gluteal cleft wound dressed clean dry and intact. Left metatarsal wound. Left elbow erythema ENT: Clearing erythema on palate. Open sores on and under tongue. CARDIOVASCULAR: Regular rate and rhythm without murmurs, gallops, or rubs. Peripheral pulses symmetric. RESPIRATORY/CHEST: Symmetric, unlabored respirations. Clear to auscultation. Breath sounds equal bilaterally. No wheezes, rales, or rhonchi. GASTROINTESTINAL: Abdomen soft, non-tender, nondistended. Bowel sounds present. MUSCULOSKELETAL: Extremities without clubbing, cyanosis, or edema. Muscle atrophy evident bilaterally. NEUROLOGICAL: Opens eyes to voice, engages in conversation, oriented to self, place, purpose. PSYCHIATRIC: Calm, cooperative . Diagnostic Tests Laboratory Laboratory Tests Test 12/24/16 05:15 White Blood Count 4.5 TH/MM3 (4.0-11.0) Red Blood Count 2.99 MIL/MM3 (4.00-5.30) Hemoglobin 9.3 GM/DL (11.6-15.3) Hematocrit 26.6 % (35.0-46.0) Mean Corpuscular Volume 89.1 FL (80.0-100.0) Mean Corpuscular Hemoglobin 31.1 PG (27.0-34.0) Mean Corpuscular Hemoglobin 34.8 % Concent (32.0-36.0) Red Cell Distribution Width 18.8 % (11.6-17.2) Platelet Count 103 TH/MM3 (150-450) Mean Platelet Volume 6.6 FL (7.0-11.0) Neutrophils (%) (Auto) 83.9 % (16.0-70.0) Lymphocytes (%) (Auto) 12.3 % (9.0-44.0) Monocytes (%) (Auto) 3.4 % (0.0-8.0) Eosinophils (%) (Auto) 0.1 % (0.0-4.0) Basophils (%) (Auto) 0.3 % (0.0-2.0) Neutrophils # (Auto) 3.8 TH/MM3 (1.8-7.7) Lymphocytes # (Auto) 0.5 TH/MM3 (1.0-4.8) Monocytes # (Auto) 0.2 TH/MM3 (0-0.9) Eosinophils # (Auto) 0.0 TH/MM3 (0-0.4) Basophils # (Auto) 0.0 TH/MM3 (0-0.2) CBC Comment AUTO DIFF Differential Total Cells 100 Counted Neutrophils % (Manual) 77 % (16-70) Band Neutrophils % 12 % (0-6) Lymphocytes % 7 % (9-44) Monocytes % 3 % (0-8) Neutrophils # (Manual) 4.1 TH/MM3 (1.8-7.7) Myelocytes 1 % (0-0) Nucleated Red Blood Cells 1 /100 WBC (0-0) Differential Comment FINAL DIFF MANUAL Platelet Estimate LOW (NORMAL) Platelet Morphology Comment NORMAL (NORMAL) Ovalocytes 1+ (NORMAL) Sodium Level 138 MEQ/L (136-145) Potassium Level 3.8 MEQ/L (3.5-5.1) Chloride Level 104 MEQ/L (98-107) Carbon Dioxide Level 26.6 MEQ/L (21.0-32.0) Anion Gap 7 MEQ/L (5-15) Blood Urea Nitrogen 14 MG/DL (7-18) Creatinine 0.36 MG/DL (0.50-1.00) Estimat Glomerular Filtration 176 ML/MIN Rate (>89) Random Glucose 82 MG/DL (74-106) Calcium Level 8.4 MG/DL (8.5-10.1) Phosphorus Level 2.7 MG/DL (2.5-4.9) Magnesium Level 2.0 MG/DL (1.5-2.5) Result Diagram: 12/24/1651412/24/16514 Assessment and Plan Disease Oriented Problem List: (1) general debility: Fatigue/weakness/anorexia/depression/malnutrition (2) 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 (3) anal cancer January 2016, status post chemotherapy and radiation (4) skin ulcerations/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 Comment: Perianal and presacral (5) depression (6) GERD (7) hyperlipidemia (8) history of DVT right leg (9) hypertension (10) history of nephrolithiasis Symptom Scale: (1) pain 0-10 Scale: Unable to quantify (primarily due to the sciatic nerve injury) Comment: Primarily back/buttock/right leg sciatic nerve pain (2) depression 0-10 Scale: Unable to quantify (no doubt worsened by the chronic pain and bedbound status) (3) anorexia 0-10 Scale: Unable to quantify (exacerbated by pain, fatigue, depression) Pertinent Non-Medical Issues Psychosocial: , was living alone, 2 daughters Spiritual: The patient has a [employer] background, and her spirituality has been important for her. She has appreciated matrix supervisor visits. Legal: The patient has capacity for shared decision-making; she has designated her daughter Merna as healthcare surrogate. Daughter Giovana, is supporting her sister in these decisions. Ethical issues impacting care: None . Important Contacts Daughter: Merna [phone] . Prognosis This patient has been on a fairly steady decline over the past several months, and that seems to be continuing. She has now become bedbound, has ongoing chronic pain, debility, fatigue, and anorexia, probably all made somewhat worse by her apparent depression and lack of motivation. If this continues, other complications will occur, and this decline will lead to the patient's . At some point in the upcoming weeks or months, she will likely be appropriate for hospice services. . Code Status: No Code Plan * DNR * DECISION-MAKING: The patient has some capacity for shared decision-making; she has designated her daughter Merna as healthcare surrogate. Merna is being supported by her sister Giovana. The patient's sister is to visit today to assist in long-term goals. * GOALS: The goals have shifted to comfort at this time, due to patient's unrelenting pain, she is unable to participate in therapy. SYMPTOMS: * Pain: She is significantly less painful today after initiation of [place] 5/ 325. She has taken 2 doses so far and has an improved comfort level. She is awake and conversant, oriented, without confusion. * Anorexia: GI discussed PEG tube with patient and family yesterday. This is under consideration. Patient's appetite was better this morning with controlled pain, ate most of breakfast. Discussed aspiration precautions with family and they feel patient would be unable to maintain elevated head of bed due to gluteal cleft wound pain. Regular bowel movements and frequent voiding are reported in EMR. Would recommend reevaluation of total protein and albumin levels for trending and bladder scan to evaluate for overflow incontinence and urinary retention. * Depression: This appears to be both situational and related to her level of uncontrolled pain from her rectal wound, leg and foot pain and mouth pain. Looking forward to seeing her sister today. Feels a little better with improved pain control. Evaluation for placement in [place] underway pending completion of Medicaid application. Family continues to vacillate between hospice and aggressive care goals. At this time there goals are not consistent with hospice. Palliative care will continue to follow the patient during hospital course as condition evolves, to assist patient/decision-maker with understanding of their medical conditions, weighing benefits/burdens of treatment options, for clarification of goals of treatment. Additionally will assist with any symptoms of palliative concern. . Attestation To help prompt me to consider important information that might be impacting today's encounter and assessment, information from prior notes written by myself or my colleagues may have been "brought forward" into today's note. My signature on this note, however, is an attestation that I personally performed the exam, history, and/or decision-making noted today, and, unless otherwise indicated, the interactions with patient, family, and staff as well as the review of records all occurred today. I also attest that the listed assessment and stated plan reflect my best clinical judgment today based on the combination of historical information, prior notes, and today's exam/ interactions. When time spent is documented, it refers only to time spent today by the signer, or if indicated, combined time spent today by collaborating physician/nurse practitioner. Aleksandra Ventura Dec 26, 2016 12:30
[2016-12-26] MEDS: FLUCONAZOLE 100 MG PREMIX BAG 50 ML IV SCH (13:00)
--- NOTE | 2016-12-26 14:33 | HHI.GIFU ---
Subjective Remarks Resting in bed. C/O generalized weakness. C/o oral pain. She states that she though about feeding tube and she is not wanting this at this time and would like to avoid invasive procedures. Objective Vitals I&O Vital Signs Date Time Temp Pulse Resp B/P Pulse Ox O2 Delivery O2 Flow Rate FiO2 12/26/16 12:09 98.0 84 20 93/54 98 12/26/16 08:40 97.9 86 18 114/66 99 12/26/16 08:00 97 Nasal Cannula 2.00 Humidified 12/26/16 04:23 97.2 80 18 132/72 100 12/26/16 00:27 97.4 87 20 121/58 97 12/26/16 00:00 Nasal Cannula 2.00 Humidified 12/25/16 20:00 97.8 94 18 96/57 98 12/25/16 20:00 Nasal Cannula 2.00 Humidified 12/25/16 20:00 90 12/25/16 16:21 98.2 90 18 91/55 98 I/O 12/25/16 12/25/16 12/25/16 12/26/16 12/26/16 12/26/16 07:00 15:00 23:00 07:00 15:00 23:00 Intake Total 0 ml 480 ml Balance 0 ml 480 ml Intake Oral 0 ml 480 ml # Voids 7 3 4 3 # Bowel Movements 3 2 0 0 Imaging Last Impressions Head CT 12/06/161821 Signed Impressions: Service Date/Time: Tuesday, December 06, 2016 19:06 - CONCLUSION: Normal examination. Ambrocio Le Jr., MD Chest X-Ray 12/06/161821 Signed Impressions: Service Date/Time: Tuesday, December 06, 2016 19:25 - CONCLUSION: No acute disease. Ambrocio Le Jr., MD Cervical Spine CT 12/06/161821 Signed Impressions: Service Date/Time: Tuesday, December 06, 2016 19:06 - CONCLUSION: 1. No fracture or dislocation. 2. Multilevel degenerative changes with patent central canal. Ambrocio Le Jr., MD Knee X-Ray 12/06/16 0000 Signed Impressions: Service Date/Time: Tuesday, December 06, 2016 19:28 - CONCLUSION: Knee arthroplasty. No acute abnormality. Ambrocio Le Jr., MD Hip and Pelvis X-Ray 12/06/16 0000 Signed Impressions: Service Date/Time: Tuesday, December 06, 2016 19:27 - CONCLUSION: No acute disease. Ambrocio Le Jr., MD Physical Exam HEENT: Normocytic. Mucositis CHEST: Resp. shallow/even, diminished CARDIAC: RRR ABDOMEN: Soft, nondistended, nontender; no hepatosplenomegaly; bowel sounds hypoactive EXTREMITIES: Generalized edema SKIN: Normal; no rash; no jaundice. CLINICAL QUALITY ASSURANCE ASSOCIATE: Generalized weakness Assessment and Plan Plan ASSESSMENT - Severe mucositis, possible candidiasis. Magic Mouthwash, Diflucan. Pt states that it has slightly improved with biotene. Poor po intake. We were originally consulted for possible EGD, but patient is extremely weak. Palliative care following. Hospice has been consulted, but pt and family have not decided on comfort measures vs. aggressive treatment. PEG tube was discussed. Pt states she thought about this and is not wanting to pursue this at this time and does not want invasive procedures. However, she has also not decided if she wants aggressive vs palliative treatment. - Anal cancer. Dx in 2016. S/P chemotherapy/radiation, slow healing rectal wound. DNR. Palliative care following, hospice has been consulted. - Sacral pressure ulcer, stage III, Electrolyte abnormalities. Per primary PLAN - [place] - Increase protonix to 40mg po BID - Cont. Diflucan - Cont. Magic Mouthwash - Palliative care following - Pt has decided not to pursue EGD/PEG at this time. However, she has also not decided about aggressive vs. palliative treatment. Will follow. - Pt seen and examined by Dr. Maxwell and myself and this note is written on his behalf Loretta Wellington Dec 26, 2016 14:33
[2016-12-26] MEDS: REMOVE OLD DURAGESIC (FENTANYL) PATCH T-DERMAL SCH (16:00)
[2016-12-26] MEDS: PANTOPRAZOLE SOD 40 MG DELAYED RELEASE TAB PO SCH (20:54)
[2016-12-26] MEDS: ATORVASTATIN 40 MG TAB PO SCH (20:54)
[2016-12-27] VITALS (7 sets, daily range): BP systolic 90–106; BP diastolic 52–62; PULSE 75–92; RESP 18–20; TEMP 97.1–98.4; O2SAT 92–100
[2016-12-27] MEDS: ACETAMINOPHEN/HYDROcodone 325 MG/5 MG TAB PO PRN ×5 (00:41→21:22)
[2016-12-27] MEDS: GABAPENTIN 400 MG CAP PO SCH ×3 (08:26→17:42)
[2016-12-27] MEDS: RIVAROXABAN 15 MG TAB PO SCH (08:26)
[2016-12-27] MEDS: PENTOXIFYLLINE 400 MG CONTROLLED RELEASE TAB PO SCH ×3 (08:26→17:42)
[2016-12-27] MEDS: MEGESTROL ACETATE SUSP 400 MG/10 ML CUP PO SCH (08:26)
[2016-12-27] MEDS: SODIUM CHLORIDE 0.9% FLUSH 10 ML FLUSH IV FLUSH SCH ×2 (08:26→21:23)
[2016-12-27] MEDS: PANTOPRAZOLE SOD 40 MG DELAYED RELEASE TAB PO SCH ×2 (08:26→21:22)
[2016-12-27] MEDS: MULTIVITAMIN TAB PO SCH (08:26)
[2016-12-27] MEDS: CHOLECALCIFEROL (VIT D3) 5000 UNIT CAP PO SCH (08:26)
[2016-12-27] MEDS: NYSTAT/DIPHENHY/LIDO MOUTHWASH (Adult) 120ML SWISH-SWAL SCH ×4 (08:28→21:26)
--- NOTE | 2016-12-27 08:39 | HHI.PR ---
Subjective Remarks This is a pleasant 76 y/o Female with Anal Cancer, Post chemo and Radiation therapy 05/25/16, Hypertension, Hyperlipidemia came to ER with increased weakness and Pain to the right knee, and Left Hip, the patient is wheelchair bound for the last one year. here with sacral ulcer. 12/27: Stable in her bedroom, no nausea, vomit or diarrhea. Objective Vital Signs Date Time Temp Pulse Resp B/P Pulse Ox O2 Delivery O2 Flow Rate FiO2 12/27/16 04:22 98.4 82 20 94/56 98 12/27/16 00:00 98.1 88 18 93/52 100 12/26/16 20:40 97 Nasal Cannula 2.00 12/26/16 20:00 97.5 84 20 128/62 100 12/26/16 20:00 81 12/26/16 19:00 97 Nasal Cannula 2.00 12/26/16 18:00 18 12/26/16 16:41 98.1 78 18 126/76 97 12/26/16 12:09 98.0 84 20 93/54 98 12/26/16 08:40 97.9 86 18 114/66 99 I/O 12/26/16 12/26/16 12/26/16 12/27/16 12/27/16 12/27/16 07:00 15:00 23:00 07:00 15:00 23:00 Intake Total 240 ml 120 ml 200 ml Balance 240 ml 120 ml 200 ml Intake Oral 240 ml 120 ml 200 ml # Voids 3 3 3 4 # Bowel Movements 0 1 0 1 Result Diagram: 12/24/16 0515 12/24/16 0515 Imaging Last Impressions Head CT 12/06/161821 Signed Impressions: Service Date/Time: Tuesday, December 06, 2016 19:06 - CONCLUSION: Normal examination. Ambrocio Le Jr., MD Chest X-Ray 12/06/161821 Signed Impressions: Service Date/Time: Tuesday, December 06, 2016 19:25 - CONCLUSION: No acute disease. Ambrocio Le Jr., MD Cervical Spine CT 12/06/161821 Signed Impressions: Service Date/Time: Tuesday, December 06, 2016 19:06 - CONCLUSION: 1. No fracture or dislocation. 2. Multilevel degenerative changes with patent central canal. Ambrocio Le Jr., MD Knee X-Ray 12/06/16 0000 Signed Impressions: Service Date/Time: Tuesday, December 06, 2016 19:28 - CONCLUSION: Knee arthroplasty. No acute abnormality. Ambrocio Le Jr., MD Hip and Pelvis X-Ray 12/06/16 0000 Signed Impressions: Service Date/Time: Tuesday, December 06, 2016 19:27 - CONCLUSION: No acute disease. Ambrocio Le Jr., MD Procedures No procedures. Other Results Laboratory Tests Test 12/24/16 05:15 White Blood Count 4.5 TH/MM3 Red Blood Count 2.99 MIL/MM3 Hemoglobin 9.3 GM/DL Hematocrit 26.6 % Mean Corpuscular Volume 89.1 FL Mean Corpuscular Hemoglobin 31.1 PG Mean Corpuscular Hemoglobin 34.8 % Concent Red Cell Distribution Width 18.8 % Platelet Count 103 TH/MM3 Mean Platelet Volume 6.6 FL Neutrophils (%) (Auto) 83.9 % Lymphocytes (%) (Auto) 12.3 % Monocytes (%) (Auto) 3.4 % Eosinophils (%) (Auto) 0.1 % Basophils (%) (Auto) 0.3 % Neutrophils # (Auto) 3.8 TH/MM3 Lymphocytes # (Auto) 0.5 TH/MM3 Monocytes # (Auto) 0.2 TH/MM3 Eosinophils # (Auto) 0.0 TH/MM3 Basophils # (Auto) 0.0 TH/MM3 CBC Comment AUTO DIFF Differential Total Cells 100 Counted Neutrophils % (Manual) 77 % Band Neutrophils % 12 % Lymphocytes % 7 % Monocytes % 3 % Neutrophils # (Manual) 4.1 TH/MM3 Myelocytes 1 % Nucleated Red Blood Cells 1 /100 WBC Differential Comment FINAL DIFF MANUAL Platelet Estimate LOW Platelet Morphology Comment NORMAL Ovalocytes 1+ Sodium Level 138 MEQ/L Potassium Level 3.8 MEQ/L Chloride Level 104 MEQ/L Carbon Dioxide Level 26.6 MEQ/L Anion Gap 7 MEQ/L Blood Urea Nitrogen 14 MG/DL Creatinine 0.36 MG/DL Estimat Glomerular Filtration 176 ML/MIN Rate Random Glucose 82 MG/DL Calcium Level 8.4 MG/DL Phosphorus Level 2.7 MG/DL Magnesium Level 2.0 MG/DL Objective Remarks GENERAL: Well-developed patient, in no apparent distress. CARDIOVASCULAR: Normal rate and regular rhythm without murmurs RESPIRATORY: Good respiratory efforts. Breath sounds equal and clear to auscultation bilaterally. GASTROINTESTINAL: Abdomen soft, non-tender, non-distended. Normal active bowel sounds MUSCULOSKELETAL: Extremities without edema. pt able to use her upper extremities to hold herself when rolled to the right NEURO: Awake and alert. generalized weakness noted. PSYCH: Appropriate mood and affect. Medications and IVs Current Medications Medications (Trade) Dose Ordered Sig/Anette Route Start Time Stop Time Status Last Admin (NS Flush) 2 ml UNSCH PRN IV FLUSH 12/06/16 20:45 12/10/16 01:09 (NS Flush) 2 ml BID IV FLUSH 12/06/16 21:00 12/27/16 08:26 (Narcan Inj) 0.4 mg UNSCH PRN IV 12/06/16 20:45 (Lipitor) 40 mg HS PO 12/07/16 21:00 12/26/16 20:54 (Neurontin) 1,200 mg TID PO 12/07/16 13:00 12/27/16 08:26 (TRENtal SR) 400 mg TID PO 12/07/16 13:00 12/27/16 08:26 (Xarelto) 15 mg DAILY PO 12/07/16 12:00 12/27/16 08:26 (Vitamin D3) 5,000 units DAILY PO 12/08/16 09:00 12/27/16 08:26 (Decadron) 4 mg Q12H PO 12/11/16 00:00 12/26/16 22:54 Miscellaneous Information 1 Q3D T-DERMAL 12/17/16 16:00 12/26/16 16:00 (Xylocaine 2% Jelly) 1 applic DAILY PRN TOPICAL 12/22/16 17:00 12/26/16 20:59 (Magic Mouthwash Adult Liq) 5 ml QID SWISH-SWAL 12/23/16 13:00 12/27/16 08:28 Multivitamins 1 tab 1 tab DAILY PO 12/24/16 09:00 12/27/16 08:26 (Diflucan 100 Mg Premix Bag) 50 ml @ 50 mls/hr Q24H IV 12/23/16 13:00 12/28/16 12:59 12/26/16 13:00 ([place] 5-325 Mg) 1 tab Q4H PRN PO 6/19/17 16:00 12/27/16 06:18 (Megace Liq) 400 mg DAILY PO 12/26/16 09:00 12/27/16 08:26 (Protonix) 40 mg BID PO 12/26/16 21:00 12/27/16 08:26 A/P Assessment and Plan Severe physical deconditioning, with hip and knee pain from falls Reviewed: hip xray and knee x ray negative for fracture. Vitamin D low. B12, CPK, and TSH within normal limits. -PT eval and treat, patient needs rehab however, pt unable to participate in PT due to pain. -Cont home gabapentin -Rehabilitation medicine, Dr. Chand, evaluated the patient and recommended OT/ PT, mobilize up to stretcher chair with Roho cushion, Turn and reposition every 2 hours to protect skin, her daughter did not wanted narcotics for her Mother, her mother does not want to Participate in Rehab, difficult to get placement and refused Hospice. Palliative care following. Osteomalacia, Vitamin D level 11, patient with increase weakness -Vitamin D3 5000 units QD, will need recheck in 4 wks outpatient, status post 1 dose of vitamin D Elevated troponin, troponin .06-->.06-->.05, plaque, nonischemic, no chest pain -Monitor tele, and vitals Right foot drop -Multipodis boot ordered Sacral pressure ulcer, stage III -pulp mill supervisor following -Turn Q2h. Lidocaine jelly for pain Questionable cdiff, patient reports had stool samples tested 3 weeks ago in outpatient lab, she does not know the results -d/c Flagyl 500mg TID -C diff here neg Dysphagia 2/2 likely to Oral thrush and sores, magic wash. Start fluconazole. Consult GI specialist, appreciate recommendations, continue magic wash patient will not benefit from any EGD at this point. Electrolyte derangement replaced Chronic medical conditions Gerd, HLD, and osteoarthritis: Stable. Continue home medications Discussed with patient, [facility] [employer] [facility] Head and disability specialist. all questions answered to the best of my abilities. No changes to anterior assessment. Discharge Planning Discharged was Held 12/14/16 calory count in progress from 12/16-12/18 w/ nutrition recs to be provided on . Palliative care consult in place for assistance w goals of care and pain meds regimen. Pt's insurance is denying authorization for discharge to rehab/SNF as pt not participating in PT. Consult GI for dysphagia, recommended PEG placement. Discharge Planning Following her Daughters decision at this time continue Hospitalized was not accepted by [facility] and also by Rehab as outpatient Dylan Cassidy MD Dec 27, 2016 08:39 evaluation. Also will add norco for pain. Discharge Planning Following her Daughters decision at this time continue Hospitalized was not accepted by [facility] and also by Rehab as outpatient Dylan Cassidy MD Dec 27, 2016 08:39
--- NOTE | 2016-12-27 12:22 | HHI.GIFU ---
Subjective Remarks Pt resting in bed on side with hob flat. Sister at bedside. Nurse reports that patient's daughter called and wanted the PEG tube placement scheduled. I spoke to patient and she said "No I don't want that, it hurts so bad just to sit up a little." Pt's hob was placed at 45 degrees and she had significant pain secondary to her coccyx wound. She states "I do not want the feeding tube or the endoscopy. I don't know why that young whipple snapper is trying to keep me around. She is having a hard time because she is too young to go through this." Her sister then told her that she believed she was making the right decision and explained that Merna is having a hard time because she is young in her 40's and does not have children. Objective Vitals I&O Vital Signs Date Time Temp Pulse Resp B/P Pulse Ox O2 Delivery O2 Flow Rate FiO2 12/27/16 08:00 Nasal Cannula 2.00 12/27/16 08:00 97.2 91 20 90/54 95 12/27/16 04:22 98.4 82 20 94/56 98 12/27/16 00:00 98.1 88 18 93/52 100 12/26/16 20:40 97 Nasal Cannula 2.00 12/26/16 20:00 97.5 84 20 128/62 100 12/26/16 20:00 81 12/26/16 19:00 97 Nasal Cannula 2.00 12/26/16 18:00 18 12/26/16 16:41 98.1 78 18 126/76 97 I/O 12/26/16 12/26/16 12/26/16 12/27/16 12/27/16 12/27/16 07:00 15:00 23:00 07:00 15:00 23:00 Intake Total 240 ml 120 ml 200 ml Balance 240 ml 120 ml 200 ml Intake Oral 240 ml 120 ml 200 ml # Voids 3 3 3 4 # Bowel Movements 0 1 0 1 Imaging Last Impressions Head CT 12/06/161821 Signed Impressions: Service Date/Time: Tuesday, December 06, 2016 19:06 - CONCLUSION: Normal examination. Ambrocio Le Jr., MD Chest X-Ray 12/06/161821 Signed Impressions: Service Date/Time: Tuesday, December 06, 2016 19:25 - CONCLUSION: No acute disease. Ambrocio Le Jr., MD Cervical Spine CT 12/06/16 1822 Signed Impressions: Service Date/Time: Tuesday, December 06, 2016 19:06 - CONCLUSION: 1. No fracture or dislocation. 2. Multilevel degenerative changes with patent central canal. Ambrocio Le Jr., MD Knee X-Ray 12/06/16 0000 Signed Impressions: Service Date/Time: Tuesday, December 06, 2016 19:28 - CONCLUSION: Knee arthroplasty. No acute abnormality. Ambrocio Le Jr., MD Hip and Pelvis X-Ray 12/06/16 0000 Signed Impressions: Service Date/Time: Tuesday, December 06, 2016 19:27 - CONCLUSION: No acute disease. Ambrocio Le Jr., MD Physical Exam HEENT: Normocytic. Mucositis CHEST: Resp. shallow/even, diminished CARDIAC: RRR ABDOMEN: Soft, nondistended, nontender; no hepatosplenomegaly; bowel sounds hypoactive EXTREMITIES: Generalized edema PASTE WORKER: Generalized weakness Assessment and Plan Plan ASSESSMENT - Severe mucositis, possible candidiasis. Magic Mouthwash, Diflucan. Pt states that it has slightly improved with biotene. Poor po intake. We were originally consulted for possible EGD, but patient is extremely weak. Palliative care following. Hospice has been consulted, but pt and family have not decided on comfort measures vs. aggressive treatment. PEG tube was discussed. Pt states she thought about this and is not wanting to pursue this at this time and does not want invasive procedures. However, she has also not decided if she wants aggressive vs palliative treatment. - Anal cancer. Dx in 2016. S/P chemotherapy/radiation, slow healing rectal wound. DNR. Palliative care following, hospice has been consulted. - Sacral pressure ulcer, stage III, Electrolyte abnormalities. Per primary PLAN - [place]- Add ensure- d/w patient and sister - Viscous Lidocaine as needed for oral pain before meals- d/w patient and sister - Cont. PPI - Cont. Diflucan - Cont. Magic Mouthwash - Palliative care following - Pt has decided not to pursue EGD/PEG or EGD. - GI will sign off, please reconsult as needed - Pt seen and examined by Dr. Maxwell and myself and this note is written on his behalf Loretta Wellington Dec 27, 2016 12:22
[2016-12-27] MEDS ORDERED: LIDOCAINE VISCOUS 2% SOLN 15 ML UDC SWISH-SPIT PRN (12:30)
[2016-12-27] MEDS: DEXAMETHASONE 4 MG TAB PO SCH (12:39)
[2016-12-27] MEDS: FLUCONAZOLE 100 MG PREMIX BAG 50 ML IV SCH (12:40)
--- NOTE | 2016-12-27 17:23 | HHI.HCPN ---
Reason for visit a. To assist with evaluation and management of symptoms including: Pain, malnutrition b. To assist medical decision maker(s) with: better understanding of current medical conditions; weighing benefits/burdens of medical treatment options; making medical treatment decisions. . Subjective/Interval History 76-year-old debilitated female, wheelchair-bound at home for months prior to admission. Extended sitting exacerbated radiation wound to the gluteal cleft status post treatment for anal cancer. Pain medication initiated 12/25 but continues to have debilitating pain. Is developing skin wounds due to prolonged immobility. She has been unable to participate in therapy due to significant discomfort with any movement. In addition to [place] 5/325 every 4 hours PRN, she is also receiving viscous lidocaine gel to the gluteal cleft wound, dexamethasone 4 mg twice a day, gabapentin 1200 mg 3 times a day and continues to have significant pain. On initial evaluation 12/15 she was lethargic and somewhat confused but over her hospital course her mentation has cleared and she is oriented 4. She is able to express her needs and has been participating in decision-making. On evaluation today vital signs are 104/58, heart rate 86, respiratory rate 20, oxygen saturation 98% on 2 L nasal cannula afebrile. Laboratory values have been stable. Consultations * Gastroenterology - due to her poor nutritional status PEG tube was discussed and daughter with any felt this might help her mother recover and heal her wounds. When this was discussed with the patient she was not in favor of this procedure, stated she did not want any invasive procedures and would certainly not be able to maintain the head of bed elevation required to prevent aspiration. She lies nearly flat all of the time due to her coccyx wound pain. She has been unable to sit up in a chair to participate in physical therapy. When the head of the bed was elevated to 40 to demonstrate the degree of elevation required for aspiration precautions she began to cry out in pain and asked for the bed to be lowered back again. She stated she would be unable to tolerate the discomfort of having the head of the bed up and wanted no further procedures. This was discussed with MOMO Miranda for GI and she also evaluated the patient's willingness for PEG tube, and the patient also refused PEG tube to her. She has had a significant functional decline over the last year and has been in significant pain. Prior to admission she was able to transfer from bed to wheelchair with assistance, where she sat most of the day due to her inability to move, however, this exacerbated the coccyx wound which is now extremely painful with movement or pressure. She continues to decline therapy and speaks to the physical therapist regarding comfort measures rather than therapy. There is ongoing discussion with the family regarding patient's wishes and placement in long-term facility. Case management had facilitated contact with the [facility] who is willing to accept her in long- term care if the Medicaid application is completed. A list of required paperwork was provided to the healthcare surrogate, Merna, over the last 2 weeks however, application has not yet been completed. . Family/friend interactions I did receive a phone call from Merna this morning opining that her mother was "very excited and happy to go forth with PEG tube", however per my interaction with the patient above, there appears to have been a change of heart on her mother's part. Message was left on Merna's voicemail to continue this discussion, callback pending. This was discussed with the patient's other daughter, Giovana, and the patient's sister who is visiting, and both are supportive of the patient's wishes for pain control and comfort care. Giovana did visit the [facility] yesterday and was very happy with the facility and stated that she will gather the paperwork required for the application and attempt to accomplish that today, as she is leaving to go home to [place] tomorrow. This was also discussed with the patient who is amenable to transitioning to the nursing facility for continued support. Family meeting is planned for 10 AM morning for update as to today's progress. Advance Directives Living Will: Never completed Health Care Surrogate: Copy in medical record Durable Power of Rn Informatics: Copy in medical record Advance Directive Specifics Health Care Surrogate(s): Daughter Merna . Objective Vital Signs Date Time Temp Pulse Resp B/P Pulse Ox O2 Delivery O2 Flow Rate FiO2 12/27/16 16:00 97.3 86 20 104/58 92 12/27/16 12:00 97.1 92 20 94/56 98 12/27/16 08:00 Nasal Cannula 2.00 12/27/16 08:00 97.2 91 20 90/54 95 12/27/16 04:22 98.4 82 20 94/56 98 12/27/16 00:00 98.1 88 18 93/52 100 6/20/17 20:40 97 Nasal Cannula 2.00 12/26/16 20:00 97.5 84 20 128/62 100 12/26/16 20:00 81 12/26/16 19:00 97 Nasal Cannula 2.00 12/26/16 18:00 18 Intake & Output 12/27/16 12/27/16 07:00 19:00 Intake Total 320 ml 120 ml Balance 320 ml 120 ml Intake Oral 320 ml 120 ml # Voids 7 3 # Bowel Movements 1 1 Physical Exam CONSTITUTIONAL/GENERAL: This is an elderly, weak, depressed-appearing patient, in no apparent distress. TUBES/LINES/DRAINS: heel protection boots, 22-gauge PIV right forearm SKIN: No jaundice. Abrasion right knee. Mid gluteal cleft wound dressed clean dry and intact. Left metatarsal wound. Bilateral elbow erythema ENT: Clearing erythema on palate. Open sores on and under tongue. CARDIOVASCULAR: Regular rate and rhythm without murmurs, gallops, or rubs. Peripheral pulses symmetric. RESPIRATORY/CHEST: Symmetric, unlabored respirations. Clear to auscultation. Breath sounds equal bilaterally. No wheezes, rales, or rhonchi. GASTROINTESTINAL: Abdomen soft, non-tender, nondistended. Bowel sounds present. MUSCULOSKELETAL: Extremities without clubbing, cyanosis, or edema. Muscle atrophy evident bilaterally. NEUROLOGICAL: Alert, interactive, engages in conversation, oriented 4. PSYCHIATRIC: Calm, cooperative . 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 (3) anal cancer January 2016, status post chemotherapy and radiation (4) skin ulcerations/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 Comment: Perianal and presacral (5) depression (6) GERD (7) hyperlipidemia (8) history of DVT right leg (9) hypertension (10) history of nephrolithiasis Symptom Scale: (1) pain 0-10 Scale: Unable to quantify (primarily due to the sciatic nerve injury) Comment: Primarily back/buttock/right leg sciatic nerve pain (2) depression 0-10 Scale: Unable to quantify (no doubt worsened by the chronic pain and bedbound status) (3) anorexia 0-10 Scale: Unable to quantify (exacerbated by pain, fatigue, depression) Pertinent Non-Medical Issues Psychosocial: , was living alone, 2 daughters Spiritual: The patient has a Buddhist background, and her spirituality has been important for her. She has appreciated cuff stitcher visits. Legal: The patient has capacity for shared decision-making; she has designated her daughter Merna as healthcare surrogate. Daughter Giovana, is supporting her sister in these decisions. Ethical issues impacting care: None . Important Contacts Daughter: Merna [phone] . Prognosis This patient has been on a fairly steady decline over the past several months, and that seems to be continuing. She has now become bedbound, has ongoing chronic pain, debility, fatigue, and anorexia, probably all made somewhat worse by her apparent depression and lack of motivation. If this continues, other complications will occur, and this decline will lead to the patient's . At some point in the upcoming weeks or months, she will likely be appropriate for hospice services. . Code Status: No Code Plan * DNR * DECISION-MAKING: The patient has capacity for decision-making and is participating in determining her course of care; she has designated her daughter Merna as healthcare surrogate. Merna is being supported by her sister Giovana. The patient's sister is to visit today to assist in long-term goals. * GOALS: The goals have shifted to comfort at this time, due to patient's unrelenting pain, she is unable to participate in therapy. SYMPTOMS: * Pain: She is significantly less painful today after initiation of [place] 5/ 325. She takes approximately 3 doses daily which decreases but does not eliminate her pain in spite of the addition of lidocaine gel to her wound, dexamethasone twice a day and gabapentin 1200 mg 3 times daily.. She is awake and conversant, oriented and clear in her determination of her goals. * Anorexia: GI discussed PEG tube with patient and family yesterday, and patient has emphatically declined. Discussed aspiration precautions with family and they feel patient would be unable to maintain elevated head of bed due to gluteal cleft wound pain and she would be at elevated risk of aspiration , and the sequelae of pneumonia and intubation. Regular bowel movements and frequent voiding are reported in EMR. Would recommend reevaluation of total protein and albumin levels for trending and bladder scan to evaluate for overflow incontinence and urinary retention. * Depression: This appears to be both situational and related to her level of uncontrolled pain from her rectal wound, leg and foot pain and mouth pain. Improved by her sister's visit today Feels a little better with improved pain control. Patient was unable to tolerate elevation of head of bed for more than 2 seconds. She states she does not want any more invasive procedures and cannot tolerate the aspiration precaution HOB elevation due to the pain in her coccyx wound. While one daughter, Merna, is still advocating for aggressive goals with therapy, patient is capacitated to make her own decisions and the remainder of the family supports her in her comfort goals. Evaluation for placement in [facility] underway pending completion of Medicaid application. She is appropriate for hospice if patient's goals are consistent. Family meeting scheduled for a.m. where patient's goals will be reviewed with hope for congruence in goals. Palliative care will continue to follow the patient during hospital course as condition evolves, to assist patient/decision-maker with understanding of their medical conditions, weighing benefits/burdens of treatment options, for clarification of goals of treatment. Additionally will assist with any symptoms of palliative concern. . Attestation To help prompt me to consider important information that might be impacting today's encounter and assessment, information from prior notes written by myself or my colleagues may have been "brought forward" into today's note. My signature on this note, however, is an attestation that I personally performed the exam, history, and/or decision-making noted today, and, unless otherwise indicated, the interactions with patient, family, and staff as well as the review of records all occurred today. I also attest that the listed assessment and stated plan reflect my best clinical judgment today based on the combination of historical information, prior notes, and today's exam/ interactions. When time spent is documented, it refers only to time spent today by the signer, or if indicated, combined time spent today by collaborating physician/nurse practitioner. Aleksandra Ventura Dec 27, 2016 5:23 pm
[2016-12-27] MEDS: ATORVASTATIN 40 MG TAB PO SCH (21:22)
[2016-12-28] VITALS: BP 102/58; PULSE 84; RESP 18; TEMP 97.2; O2SAT 93
[2016-12-28] MEDS: DEXAMETHASONE 4 MG TAB PO SCH ×2 (00:10→13:26)
[2016-12-28 04:00] VITALS: BP 110/65; PULSE 80; RESP 18; TEMP 97; O2SAT 94
[2016-12-28] MEDS: ACETAMINOPHEN/HYDROcodone 325 MG/5 MG TAB PO PRN ×3 (06:03→15:53)
[2016-12-28 08:00] VITALS: PULSE 87
[2016-12-28 08:05] VITALS: BP 137/89; PULSE 86; RESP 18; TEMP 98.3; O2SAT 95
[2016-12-28] MEDS: SODIUM CHLORIDE 0.9% FLUSH 10 ML FLUSH IV FLUSH SCH (09:00)
--- NOTE | 2016-12-28 09:25 | HHI.PR ---
Subjective Remarks This is a pleasant 76 y/o Female with Anal Cancer, Post chemo and Radiation therapy 05/25/16, Hypertension, Hyperlipidemia came to ER with increased weakness and Pain to the right knee, and Left Hip, the patient is wheelchair bound for the last one year. here with sacral ulcer. 12/28: Seen in her bedroom and ready for discharge to SNF, no nausea, vomit or diarrhea, deteriorating, she is a good candidate for Hospice but her Family wanted to continue Skilled Nurse facility management. Objective Vital Signs Date Time Temp Pulse Resp B/P Pulse Ox O2 Delivery O2 Flow Rate FiO2 12/28/16 08:05 98.3 86 18 137/89 95 12/28/16 04:00 97.0 80 18 110/65 94 12/28/16 00:00 97.2 84 18 102/58 93 12/27/16 20:00 97.6 83 18 106/62 94 12/27/16 20:00 Nasal Cannula 2.00 12/27/16 20:00 97.6 83 18 106/62 94 12/27/16 19:59 75 12/27/16 16:00 97.3 86 20 104/58 92 12/27/16 12:00 97.1 92 20 94/56 98 I/O 12/27/16 12/27/16 12/27/16 12/28/16 12/28/16 12/28/16 07:00 15:00 23:00 07:00 15:00 23:00 Intake Total 200 ml 120 ml 240 ml Output Total 500 ml Balance 200 ml 120 ml 240 ml -500 ml Intake Oral 200 ml 120 ml 240 ml Output Urine Total 500 ml # Voids 4 3 2 # Bowel Movements 1 1 0 0 Result Diagram: 12/24/16 0515 12/24/16 05 Imaging Last Impressions Head CT 12/06/161821 Signed Impressions: Service Date/Time: Tuesday, December 06, 2016 19:06 - CONCLUSION: Normal examination. Ambrocio Le Jr., MD Chest X-Ray 12/06/161821 Signed Impressions: Service Date/Time: Tuesday, December 06, 2016 19:25 - CONCLUSION: No acute disease. Ambrocio Le Jr., MD Cervical Spine CT 12/06/161821 Signed Impressions: Service Date/Time: Tuesday, December 06, 2016 19:06 - CONCLUSION: 1. No fracture or dislocation. 2. Multilevel degenerative changes with patent central canal. Ambrocio Le Jr., MD Knee X-Ray 12/06/16 0000 Signed Impressions: Service Date/Time: Tuesday, December 06, 2016 19:28 - CONCLUSION: Knee arthroplasty. No acute abnormality. Ambrocio Le Jr., MD Hip and Pelvis X-Ray 12/06/16 0000 Signed Impressions: Service Date/Time: Tuesday, December 06, 2016 19:27 - CONCLUSION: No acute disease. Ambrocio Le Jr., MD Procedures No procedures. Other Results Laboratory Tests Test 12/24/16 05:15 White Blood Count 4.5 TH/MM3 Red Blood Count 2.99 MIL/MM3 Hemoglobin 9.3 GM/DL Hematocrit 26.6 % Mean Corpuscular Volume 89.1 FL Mean Corpuscular Hemoglobin 31.1 PG Mean Corpuscular Hemoglobin 34.8 % Concent Red Cell Distribution Width 18.8 % Platelet Count 103 TH/MM3 Mean Platelet Volume 6.6 FL Neutrophils (%) (Auto) 83.9 % Lymphocytes (%) (Auto) 12.3 % Monocytes (%) (Auto) 3.4 % Eosinophils (%) (Auto) 0.1 % Basophils (%) (Auto) 0.3 % Neutrophils # (Auto) 3.8 TH/MM3 Lymphocytes # (Auto) 0.5 TH/MM3 Monocytes # (Auto) 0.2 TH/MM3 Eosinophils # (Auto) 0.0 TH/MM3 Basophils # (Auto) 0.0 TH/MM3 CBC Comment AUTO DIFF Differential Total Cells 100 Counted Neutrophils % (Manual) 77 % Band Neutrophils % 12 % Lymphocytes % 7 % Monocytes % 3 % Neutrophils # (Manual) 4.1 TH/MM3 Myelocytes 1 % Nucleated Red Blood Cells 1 /100 WBC Differential Comment FINAL DIFF MANUAL Platelet Estimate LOW Platelet Morphology Comment NORMAL Ovalocytes 1+ Sodium Level 138 MEQ/L Potassium Level 3.8 MEQ/L Chloride Level 104 MEQ/L Carbon Dioxide Level 26.6 MEQ/L Anion Gap 7 MEQ/L Blood Urea Nitrogen 14 MG/DL Creatinine 0.36 MG/DL Estimat Glomerular Filtration 176 ML/MIN Rate Random Glucose 82 MG/DL Calcium Level 8.4 MG/DL Phosphorus Level 2.7 MG/DL Magnesium Level 2.0 MG/DL Objective Remarks GENERAL: Well-developed patient, in no apparent distress. CARDIOVASCULAR: Normal rate and regular rhythm without murmurs RESPIRATORY: Good respiratory efforts. Breath sounds equal and clear to auscultation bilaterally. GASTROINTESTINAL: Abdomen soft, non-tender, non-distended. Normal active bowel sounds MUSCULOSKELETAL: Extremities without edema. pt able to use her upper extremities to hold herself when rolled to the right NEURO: Awake and alert. generalized weakness noted. PSYCH: Appropriate mood and affect. Medications and IVs Current Medications Medications (Trade) Dose Ordered Sig/Anette Route Start Time Stop Time Status Last Admin (NS Flush) 2 ml UNSCH PRN IV FLUSH 12/06/16 20:45 12/10/16 01:09 (NS Flush) 2 ml BID IV FLUSH 12/06/16 21:00 12/27/16 21:23 (Narcan Inj) 0.4 mg UNSCH PRN IV 12/06/16 20:45 (Lipitor) 40 mg HS PO 12/07/16 21:00 12/27/16 21:22 (Neurontin) 1,200 mg TID PO 12/07/16 13:00 12/27/16 17:42 (TRENtal SR) 400 mg TID PO 12/07/16 13:00 12/27/16 17:42 (Xarelto) 15 mg DAILY PO 12/07/16 12:00 12/27/16 08:26 (Vitamin D3) 5,000 units DAILY PO 12/08/16 09:00 12/27/16 08:26 (Decadron) 4 mg Q12H PO 12/11/16 00:00 12/28/16 00:10 Miscellaneous Information 1 Q3D T-DERMAL 12/17/16 16:00 12/26/16 16:00 (Xylocaine 2% Jelly) 1 applic DAILY PRN TOPICAL 12/22/16 17:00 12/26/16 20:59 (Magic Mouthwash Adult Liq) 5 ml QID SWISH-SWAL 12/23/16 13:00 12/27/16 21:26 Multivitamins 1 tab 1 tab DAILY PO 12/24/16 09:00 12/27/16 08:26 (Diflucan 100 Mg Premix Bag) 50 ml @ 50 mls/hr Q24H IV 12/23/16 13:00 12/28/16 12:59 12/27/16 12:40 (Stowe 5-325 Mg) 1 tab Q4H PRN PO 12/25/16 16:00 12/28/16 06:03 (Megace Liq) 400 mg DAILY PO 12/26/16 09:00 12/27/16 08:26 (Protonix) 40 mg BID PO 12/26/16 21:00 12/27/16 21:22 (Xylocaine 2% Viscous) 15 ml Q4H PRN SWISH-SPIT 12/27/16 12:30 A/P Assessment and Plan Severe physical deconditioning, with hip and knee pain from falls Reviewed: hip xray and knee x ray negative for fracture. Vitamin D low. B12, CPK, and TSH within normal limits. -PT eval and treat, patient needs rehab however, pt unable to participate in PT due to pain. -Cont home gabapentin -Rehabilitation medicine, Dr. Chand, evaluated the patient and recommended OT/ PT, mobilize up to stretcher chair with Roho cushion, Turn and reposition every 2 hours to protect skin, her daughter did not wanted narcotics for her Mother, her mother does not want to Participate in Rehab, difficult to get placement and refused Hospice. Palliative care following. Osteomalacia, Vitamin D level 11, patient with increase weakness -Vitamin D3 5000 units QD, will need recheck in 4 wks outpatient, status post 1 dose of vitamin D Elevated troponin, troponin .06-->.06-->.05, plaque, nonischemic, no chest pain -Monitor tele, and vitals Right foot drop -Multipodis boot ordered Sacral pressure ulcer, stage III -human geography instructor following -Turn Q2h. Lidocaine jelly for pain Questionable cdiff, patient reports had stool samples tested 3 weeks ago in outpatient lab, she does not know the results -d/c Flagyl 500mg TID -C diff here neg Dysphagia 2/2 likely to Oral thrush and sores, magic wash. Start fluconazole. Consult GI specialist, appreciate recommendations, continue magic wash patient will not benefit from any EGD at this point. Electrolyte derangement replaced Chronic medical conditions Gerd, HLD, and osteoarthritis: Stable. Continue home medications Discussed with patient, Director Recreation and branch service specialist. all questions answered to the best of my abilities. Today will be discharged to SNF Discharge Planning Discharge to SNF Dylan Cassidy MD Dec 28, 2016 09:25 Consult GI for dysphagia, recommended PEG placement. Discharge Planning Following her Daughters decision at this time continue Hospitalized was not accepted by [facility] and also by Rehab as outpatient Dylan Cassidy MD Dec 28, 2016 09:25
[2016-12-28] MEDS: MULTIVITAMIN TAB PO SCH (09:26)
[2016-12-28] MEDS: CHOLECALCIFEROL (VIT D3) 5000 UNIT CAP PO SCH (09:26)
[2016-12-28] MEDS: MEGESTROL ACETATE SUSP 400 MG/10 ML CUP PO SCH (09:26)
[2016-12-28] MEDS: PANTOPRAZOLE SOD 40 MG DELAYED RELEASE TAB PO SCH (09:26)
[2016-12-28] MEDS: PENTOXIFYLLINE 400 MG CONTROLLED RELEASE TAB PO SCH ×2 (09:26→13:25)
[2016-12-28] MEDS: GABAPENTIN 400 MG CAP PO SCH ×2 (09:26→13:25)
[2016-12-28] MEDS: RIVAROXABAN 15 MG TAB PO SCH (09:26)
[2016-12-28] MEDS: NYSTAT/DIPHENHY/LIDO MOUTHWASH (Adult) 120ML SWISH-SWAL SCH ×2 (09:27→13:00)
[2016-12-28 12:06] VITALS: BP 101/73; PULSE 101; RESP 18; TEMP 97.5; O2SAT 100
--- NOTE | 2016-12-28 15:01 | HHI.HCPN ---
Reason for visit a. To assist with evaluation and management of symptoms including: Pain, malnutrition b. To assist medical decision maker(s) with: better understanding of current medical conditions; weighing benefits/burdens of medical treatment options; making medical treatment decisions. . Subjective/Interval History 76-year-old female with chronic wounds status post anal cancer with radiation therapy, progressive debility, unable to ambulate for the last year with mucositis compromising poor nutritional status due to mouth wounds and pain, being followed by palliative care to assist in symptom management and goals of care. She is seen today to evaluate pain control and nutritional status. She had previously declined PEG tube and any further invasive procedures. She states she wishes to be comfortable and have her pain controlled. She is lying in bed visiting with family. She is stable from a medical standpoint and being discharged today. Blood pressure 101/73, heart rate 101, respiratory rate 18, oxygen saturation 95 % on room air, afebrile. No new labs or imaging studies. . Family/friend interactions Discussed with daughters, Merna and Giovana, placement of patient in skilled rehabilitation, however patient is unable to participate in physical therapy and insurance will not fund, so family has decided to place her in long-term care at the [facility] and rehabilitation as she is unable to provide for her own care at home. Family is in process of completing the Medicaid application with the [facility] staff in anticipation of discharge today. As patient is unable to pursue aggressive medical measures and wishes comfort the family has requested that hospice of [facility] follow her care at the alf facility to provide an extra layer of support for the patient and family. This was discussed with case management and ordered by the medical attending. Advance Directives Living Will: Never completed Health Care Surrogate: Copy in medical record Durable Power of Green End Worker: Copy in medical record Advance Directive Specifics Health Care Surrogate(s): Bonnie Bauman . Objective Vital Signs Date Time Temp Pulse Resp B/P Pulse Ox O2 Delivery O2 Flow Rate FiO2 12/28/16 12:06 97.5 101 18 101/73 100 12/28/16 09:00 Nasal Cannula 2.00 12/28/16 08:05 98.3 86 18 137/89 95 12/28/16 08:00 87 12/28/16 04:00 97.0 80 18 110/65 94 12/28/16 00:00 97.2 84 18 102/58 93 12/27/16 20:00 97.6 83 18 106/62 94 12/27/16 20:00 Nasal Cannula 2.00 12/27/16 20:00 97.6 83 18 106/62 94 12/27/16 19:59 75 12/27/16 16:00 97.3 86 20 104/58 92 Intake & Output 12/28/16 12/28/16 06:59 18:59 Intake Total 240 ml Output Total 500 ml Balance -260 ml Intake Oral 240 ml Output Urine Total 500 ml # Voids 2 # Bowel Movements 0 Physical Exam CONSTITUTIONAL/GENERAL: This is an elderly, weak, depressed-appearing patient, in no apparent distress. TUBES/LINES/DRAINS: heel protection boots, 22-gauge PIV right forearm SKIN: No jaundice. Abrasion right knee. Mid gluteal cleft wound dressed clean dry and intact. Left metatarsal wound. Bilateral elbow erythema ENT: Clearing erythema on palate. Open sores on and under tongue. CARDIOVASCULAR: Regular rate and rhythm without murmurs, gallops, or rubs. Peripheral pulses symmetric. RESPIRATORY/CHEST: Symmetric, unlabored respirations. Clear to auscultation. Breath sounds equal bilaterally. No wheezes, rales, or rhonchi. GASTROINTESTINAL: Abdomen soft, non-tender, nondistended. Bowel sounds present. MUSCULOSKELETAL: Extremities without clubbing, cyanosis, or edema. Muscle atrophy evident bilaterally. NEUROLOGICAL: Alert, interactive, engages in conversation, oriented 4, generalized weakness. PSYCHIATRIC: Calm, cooperative . 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 (3) anal cancer January 2016, status post chemotherapy and radiation (4) skin ulcerations/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 Comment: Perianal and presacral (5) depression (6) GERD (7) hyperlipidemia (8) history of DVT right leg (9) hypertension (10) history of nephrolithiasis Symptom Scale: (1) pain 0-10 Scale: Unable to quantify (primarily due to the sciatic nerve injury) Comment: Primarily back/buttock/right leg sciatic nerve pain (2) depression 0-10 Scale: Unable to quantify (no doubt worsened by the chronic pain and bedbound status) (3) anorexia 0-10 Scale: Unable to quantify (exacerbated by pain, fatigue, depression) Pertinent Non-Medical Issues Psychosocial: , was living alone, 2 daughters Spiritual: The patient has a Hindu background, and her spirituality has been important for her. She has appreciated delivery department supervisor visits. Legal: The patient has capacity for shared decision-making; she has designated her daughter Merna as healthcare surrogate. Daughter Giovana, is supporting her sister in these decisions. Ethical issues impacting care: None . Important Contacts Daughter: Merna [phone] . Prognosis This patient has been on a fairly steady decline over the past several months, and that seems to be continuing. She has now become bedbound, has ongoing chronic pain, debility, fatigue, and anorexia, probably all made somewhat worse by her apparent depression and lack of motivation. If this continues, other complications will occur, and this decline will lead to the patient's . At some point in the upcoming weeks or months, she will likely be appropriate for hospice services. . Code Status: No Code Plan * DNR * DECISION-MAKING: The patient has capacity for decision-making and is participating in determining her course of care; she has designated her daughter Merna as healthcare surrogate. Merna is being supported by her sister Giovana. The patient's sister is to visit today to assist in long-term goals and placement in SNF. * GOALS: The goals have shifted to comfort at this time, due to patient's unrelenting pain, she is unable to participate in therapy. SYMPTOMS: * Pain: She is significantly less painful today after initiation of Jasper 5/ 325. She takes approximately 2-3 doses daily which decreases but does not eliminate her pain in spite of the addition of lidocaine gel to her wound, dexamethasone twice a day and gabapentin 1200 mg 3 times daily. She is awake and conversant, oriented and clear in her determination of her goals. * Anorexia: GI discussed PEG tube with patient and family yesterday, and patient has emphatically declined. Discussed aspiration precautions with family and they feel patient would be unable to maintain elevated head of bed due to gluteal cleft wound pain and she would be at elevated risk of aspiration , and the sequelae of pneumonia and intubation. Regular bowel movements and frequent voiding are reported in EMR. Would recommend periodic reevaluation of total protein and albumin levels for trending and bladder scan to evaluate for overflow incontinence and urinary retention. To improve oral intake, would give high concentration nutritional supplement immediately after nystatin swish and swallow as patient feels the most relief at that time. * Depression: This appears to be both situational and related to her level of uncontrolled pain from her rectal wound, leg and foot pain and mouth pain. Improved by her daughters and sister's visit today. Feels a little better with improved pain control. Evaluation for placement in [facility] underway pending completion of Medicaid application. She is appropriate for hospice if patient's goals are consistent. Family wishes [facility] to follow in SNF for added layer of support. Palliative care will continue to follow the patient during hospital course as condition evolves, to assist patient/decision-maker with understanding of their medical conditions, weighing benefits/burdens of treatment options, for clarification of goals of treatment. Additionally will assist with any symptoms of palliative concern. . Attestation To help prompt me to consider important information that might be impacting today's encounter and assessment, information from prior notes written by myself or my colleagues may have been "brought forward" into today's note. My signature on this note, however, is an attestation that I personally performed the exam, history, and/or decision-making noted today, and, unless otherwise indicated, the interactions with patient, family, and staff as well as the review of records all occurred today. I also attest that the listed assessment and stated plan reflect my best clinical judgment today based on the combination of historical information, prior notes, and today's exam/ interactions. When time spent is documented, it refers only to time spent today by the signer, or if indicated, combined time spent today by collaborating physician/nurse practitioner. Aleksandra Ventura Dec 28, 2016 3:01 pm
[2016-12-28 16:04] VITALS: BP 110/72; PULSE 98; RESP 18; TEMP 97.8; O2SAT 100
--- NOTE | 2017-01-02 08:07 | HHI.DS ---
Discharge Summary Admission Date Dec 07, 2016 at 18:07 Discharge Date: Dec 28, 2016 Admitting Diagnosis generalized weakness, elevated troponin, inability to ambulate (1) Physical deconditioning ICD Code: R53.81 Diagnosis: Principal (2) Hip pain, left ICD Code: M25.552 Diagnosis: Principal (3) Osteomalacia ICD Code: M83.9 Diagnosis: Principal Procedures none Brief History - From Admission 76 y/o female with a history of anal cancer (post chemo and radiation 05/25/16) , htn, osteoarthritis, DVT (unknown time), and hyperlipidemia presented to the ED with complaints of increased weakness and pain to right knee and left hip. She is a poor historian when discussing the time line of her chemo, radiation, and names of her Doctors and medications she is taking. She lives alone and states her daughter comes every morning and she knows her medications and history. Tried contacting Daughter at home, no answer. Patient states she has been wheelchair bound for the last year, and the last week she has fallen twice out of her wheel chair when trying to transfer to the bed. She denies hitting her head.The last fall was on Sunday and she landed on her right knee and left hip. There is a noticeable hematoma to her left hip. Denies any chest pain, sob , or dizziness now or prior to her falling. She was most recently seen outpatient by Dr. Pleitez for increased weakness and she recommended outpatient PT for neurofacilitation, transfer, and gait training.and possible use of an AFB or KAFO brace. Patient is follow by Dr. Rojas who thinks this is sciatic related. Patient did fail PT at some point with home health. On 11/24/16 Neurology recommended decrease of gabapentin to decrease sedation. Over the last 6 months she has underwent multiple imaging outpatient. Lumbar spine MRI 11/01/16 showed disc bulges L1-2, L2-3, L3-4 with facet hypertrophy and right foraminal narrowing , L4-5 disc bulge with left foraminal narrowing and disc herniation and osteophytic complex L5-S1 abutting the S1 nerve root and lateral recess with left foraminal narrowing impinging the L5 nerve root. Cervical spine MRI 11/01/16 showed disc bulge C4-5 with left facet hypertrophy with foraminal narrowing C5 nerve root, disc herniation C5-6 and C6-7 compressing ventral thecal sac without neural impingement. Right thigh MRI without contrast 10/06/16 showed worsening tendinosis/myositis upper thigh musculature primarily adductors especially brevis and longus. potential insertional tendinosis/partial tearing of distal adductors at the level of the mid/upper thigh. Radiation induced changes would be in differential. MRI lumbar spine 08/02/16 showed levoscoliosis with degenerative changes L1-2 through L3-4,facet hypertrophy right L2-3 and bilaterally L3-4 and L4-5 and left disc bulge L5-S1 abutting the left L5 nerve root. MRI right hip 08/02/16 showed mild to moderate right hip osteoarthritis. MRI of pelvis 11/06/16 showed intramuscular signal abnormality and edema right gluteal musculature as well and obturator externus, internus and piriformis muscle possible myositis or treatment related changes from rectal carcinoma. EMG testing 11/14/[address] Donlad Rojas and the impression was sensory axonal neuropathy, motor neuropathy left side, marked denervation right sciatic nerve territory with no evidence of radiculopathy. Likely direct sciatic nerve injury. Imaging Last Impressions Head CT 12/06/161821 Signed Impressions: Service Date/Time: Tuesday, December 06, 2016 19:06 - CONCLUSION: Normal examination. Ambrocio Le Jr., MD Chest X-Ray 12/06/161821 Signed Impressions: Service Date/Time: Tuesday, December 06, 2016 19:25 - CONCLUSION: No acute disease. Ambrocio Le Jr., MD Cervical Spine CT 12/06/161821 Signed Impressions: Service Date/Time: Tuesday, December 06, 2016 19:06 - CONCLUSION: 1. No fracture or dislocation. 2. Multilevel degenerative changes with patent central canal. Ambrocio Le Jr., MD Knee X-Ray 12/06/16 0000 Signed Impressions: Service Date/Time: Tuesday, December 06, 2016 19:28 - CONCLUSION: Knee arthroplasty. No acute abnormality. Ambrocio Le Jr., MD Hip and Pelvis X-Ray 12/06/16 0000 Signed Impressions: Service Date/Time: Tuesday, December 06, 2016 19:27 - CONCLUSION: No acute disease. Ambrocio Le Jr., MD PE at Discharge GENERAL: Well-developed patient, in no apparent distress. CARDIOVASCULAR: Normal rate and regular rhythm without murmurs RESPIRATORY: Good respiratory efforts. Breath sounds equal and clear to auscultation bilaterally. GASTROINTESTINAL: Abdomen soft, non-tender, non-distended. Normal active bowel sounds MUSCULOSKELETAL: Extremities without edema. pt able to use her upper extremities to hold herself when rolled to the right NEURO: Awake and alert. generalized weakness noted. PSYCH: Appropriate mood and affect. Hospital Course This is a pleasant 76 y/o Female with Anal Cancer, Post chemo and Radiation therapy 05/25/16, Hypertension, Hyperlipidemia came to ER with increased weakness and Pain to the right knee, and Left Hip, the patient is wheelchair bound for the last one year. here with sacral ulcer. 12/28: Seen in her bedroom and ready for discharge to SNF, no nausea, vomit or diarrhea, deteriorating, she is a good candidate for Hospice but her Family wanted to continue Skilled Nurse facility management. Assessment and Plan Severe physical deconditioning, with hip and knee pain from falls Reviewed: hip xray and knee x ray negative for fracture. Vitamin D low. B12, CPK, and TSH within normal limits. -PT eval and treat, patient needs rehab however, pt unable to participate in PT due to pain. -Cont home gabapentin -Rehabilitation medicine, Dr. Chand, evaluated the patient and recommended OT/ PT, mobilize up to stretcher chair with Roho cushion, Turn and reposition every 2 hours to protect skin, her daughter did not wanted narcotics for her Mother, her mother does not want to Participate in Rehab, difficult to get placement and refused Hospice. Palliative care following. Osteomalacia, Vitamin D level 11, patient with increase weakness -Vitamin D3 5000 units QD, will need recheck in 4 wks outpatient, status post 1 dose of vitamin D Elevated troponin, troponin .06-->.06-->.05, plaque, nonischemic, no chest pain -Monitor tele, and vitals Right foot drop -Multipodis boot ordered Sacral pressure ulcer, stage III -bilingual account manager following -Turn Q2h. Lidocaine jelly for pain Questionable cdiff, patient reports had stool samples tested 3 weeks ago in outpatient lab, she does not know the results -d/c Flagyl 500mg TID -C diff here neg Dysphagia 2/2 likely to Oral thrush and sores, magic wash. Start fluconazole. Consult GI specialist, appreciate recommendations, continue magic wash patient will not benefit from any EGD at this point. Electrolyte derangement replaced Chronic medical conditions Gerd, HLD, and osteoarthritis: Stable. Continue home medications Discussed with patient, Nitro Worker and 3d specialist. all questions answered to the best of my abilities. Today will be discharged to SNF Discharge Planning Discharge to SNF Pt Condition on Discharge: Deteriorating Discharge Disposition: Discharge to SNF Discharge Time: > 30 minutes Discharge Instructions DIET: Follow Instructions for: Heart Healthy Diet Activities you can perform: Regular-No Restrictions Dylan Cassidy MD Jan 02, 2017 08:07
== END 2016-12-28 18:05 | DRG 91 ==
LOC: NEPC 17:15 → INTOOBSV 20:37 → NEDA 20:37 → NEPGCP 21:57 → OBSVTOIN 12-07 18:07 → N04A 12-08 14:48
PROVIDERS: ADMIT Internal Medicine; ATTEND Internal Medicine
DX: G89.4 Chronic pain syndrome (principal); L89.153 Pressure ulcer of sacral region, stage 3; E46 Unspecified protein-calorie malnutrition; B37.0 Candidal stomatitis; G62.9 Polyneuropathy, unspecified; M83.9 Adult osteomalacia, unspecified; M50.223 Other cervical disc displacement at C6-C7 level; R53.81 Other malaise; M41.9 Scoliosis, unspecified; R53.1 Weakness; M21.371 Foot drop, right foot; M16.11 Unilateral primary osteoarthritis, right hip; K21.9 Gastro-esophageal reflux disease without esophagitis; E78.5 Hyperlipidemia, unspecified; R29.6 Repeated falls; I10 Essential (primary) hypertension; S70.01XA Contusion of right hip, initial encounter; M51.26 Other intervertebral disc displacement, lumbar region; M50.222 Other cervical disc displacement at C5-C6 level; M50.221 Other cervical disc displacement at C4-C5 level; M60.851 Other myositis, right thigh; S76.211A Strain of adductor muscle, fascia and tendon of right thigh, initial encounter; S74.00XA Injury of sciatic nerve at hip and thigh level, unspecified leg, initial encounter; R13.19 Other dysphagia; S80.211A Abrasion, right knee, initial encounter; K12.30 Oral mucositis (ulcerative), unspecified; R74.8 Abnormal levels of other serum enzymes; F32.9 Major depressive disorder, single episode, unspecified; W05.0XXA Fall from non-moving wheelchair, initial encounter; Y84.2 Radiological procedure and radiotherapy as the cause of abnormal reaction of the patient, or of later complication, without mention of misadventure at the time of the procedure; Z66 Do not resuscitate; Z68.25 Body mass index [BMI] 25.0-25.9, adult; Z74.01 Bed confinement status; Z79.01 Long term (current) use of anticoagulants; Z85.048 Personal history of other malignant neoplasm of rectum, rectosigmoid junction, and anus; Z86.73 Personal history of transient ischemic attack (TIA), and cerebral infarction without residual deficits; Z86.718 Personal history of other venous thrombosis and embolism; Z87.891 Personal history of nicotine dependence; Z92.21 Personal history of antineoplastic chemotherapy; Z92.3 Personal history of irradiation; Z96.642 Presence of left artificial hip joint; Z96.653 Presence of artificial knee joint, bilateral; Z99.3 Dependence on wheelchair
CPT/HCPCS: 70450; 71010; 72125; 73502; 73564; 76937; 80048; 80053; 81001; 82306; 82550; 82552; 82607; 83605; 83735; 84100; 84132; 84155; 84443; 84484; 85007; 85025; 85027; 85610; 85730; 87040; 87493; 90471; 90714; 93005; 96360; G0378; G8987-GP; G8988-GP; J0610; J1450; J1642; J2270; J3480; J7030; J8540; P9612